=== PATIENT | female | born 1970 | race Caucasian/White ===

== ENCOUNTER 2018-07-30 11:06 | Emergency (ER) | payer OTHER ==
--- NOTE | 2018-07-30 11:21 | ERPHSYRPT ---
- History of Present Illness Time Seen by Provider: 07/30/18 11:20 Historian: patient Exam Limitations: no limitations Physician History: 47 y/o diabetic white female presents with mid abd pain and assoc vomiting since this am. pt had similar episode 3 weeks ago and was managed at [facility]. dx was gastritis. pt had similar episode in distant past as well. pt states both most recent episodes followed ingestion of beans. pt has only had a btl and no other abd surgeries. no diarrhea. pt is on prilosec. Timing/Duration: day(s) (1) Activities at Onset: none Quality: burning, stabbing Abdominal Pain Onset Location: epigastric, generalized abdomen Pain Radiation: no radiation Severity of Pain-Max: moderate Severity of Pain-Current: moderate Modifying Factors: Improves With: vomiting Associated Symptoms: loss of appetite, nausea, vomiting, No back, No diaphoresis , No diarrhea, No fever/chills, No fatigue, No headache, No heartburn, No shortness of breath, No weakness Previous symptoms: same symptoms as today, recently seen Allergies/Adverse Reactions: NKA Allergy (Mild, Verified 07/30/18 11:40) Home Medications: Alprazolam [Xanax] 1 mg PO BIDPRN PRN 08/23/15 [History] Metformin HCl 500 mg [Glucophage 500 MG] 500 mg PO BID 05/18/17 [History] Olanzapine/Fluoxetine HCl [Symbyax 6-50 mg Capsule] 1 each PO HS 05/18/17 [ History] Hx Tetanus, Diphtheria Vaccination/Date Given: No Hx Influenza Vaccination/Date Given: No Hx Pneumococcal Vaccination/Date Given: No - Review of Systems Constitutional: No Symptoms, No Fever Eyes: No Symptoms, No Discharge, No Eye Pain, No Vision Changes Ears, Nose, & Throat: No Symptoms, No Ear Pain, No Nose Pain, No Nose Congestion , No Painful Swallowing Respiratory: No Symptoms, No Cough, No Dyspnea, No Stridor, No Wheezing Cardiac: No Symptoms, No Chest Pain, No Palpitations, No Syncope Abdominal/Gastrointestinal: Abdominal Pain, Nausea, Vomiting, No Diarrhea, No Constipation Genitourinary Symptoms: No Symptoms, No Dysuria, No Frequency, No Hematuria Musculoskeletal: No Symptoms, No Back Pain, No Neck Pain, No Deformity, No Fall , No Injury Skin: No Symptoms Neurological: No Symptoms, No Dizziness, No Headache Psychological: No Symptoms Endocrine: No Symptoms Hematologic/Lymphatic: No Symptoms Immunological/Allergic: No Symptoms All Other Systems: Reviewed and Negative - Past Medical History Pertinent Past Medical History: Yes Neurological History: Migraines ENT History: No Pertinent History Cardiac History: No Pertinent History Respiratory History: Pneumonia Endocrine Medical History: No Pertinent History Musculoskeletal History: No Pertinent History GI Medical History: GERD, Other History: No Pertinent History Psycho-Social History: Anxiety, Bipolar, Depression Female Reproductive Disorders: No Pertinent History Other Medical History: Gastroenteritis , chronic back pain - Past Surgical History Past Surgical History: Yes Neuro Surgical History: No Pertinent History Cardiac: No Pertinent History Respiratory: No Pertinent History Gastrointestinal: No Pertinent History Genitourinary: No Pertinent History Musculoskeletal: No Pertinent History Female Surgical History: Lumpectomy, Tubal Ligation - Social History Smoking Status: Current every day smoker How long have you smoked: 25 Exposure to second hand smoke: Yes Drug Use: marijuana Patient Lives Alone: No - Nursing Vital Signs Nursing Vital Signs: Initial Vital Signs Temperature 97.8 F 07/30/18 11:17 Pulse Rate 96 H 07/30/18 11:17 Respiratory Rate 18 07/30/18 11:17 Blood Pressure 169/95 07/30/18 11:17 O2 Sat by Pulse Oximetry 99 07/30/18 11:17 Pain Scale Pain Intensity 10 - Physical Exam General Appearance: mild distress, alert, anxiety Eye Exam: PERRL/EOMI, eyes nml inspection Ears, Nose, Throat Exam: normal ENT inspection, moist mucous membranes Neck Exam: normal inspection, non-tender, supple, full range of motion Respiratory Exam: normal breath sounds, lungs clear, airway intact, No chest tenderness, No respiratory distress, No accessory muscle use, No rhonchi, No wheezing, No stridor Cardiovascular Exam: regular rate/rhythm, normal heart sounds, normal peripheral pulses Gastrointestinal/Abdomen Exam: soft, normal bowel sounds, tenderness (mild diffuse), guarding, No rebound Pelvic Exam: not done Rectal Exam: not done Back Exam: normal inspection, normal range of motion, No CVA tenderness, No vertebral tenderness Extremity Exam: normal inspection, normal range of motion, pelvis stable Neurologic Exam: alert, oriented x 3, cooperative, 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 Skin Exam: normal color, warm, dry Lymphatic Exam: No adenopathy SpO2 Interpretation: normal Oxygen Delivery: Room Air - Course Nursing assessment & vital signs reviewed: Yes Ordered Tests: Active Orders 24 hr Category Date Time Status Clean Catch Urine Specimen STAT Care 07/30/18 11:41 Active IV Insertion STAT Care 07/30/18 11:41 Active ABDOMEN AND PELVIS W CONTRAST [CT] Stat Exams 07/30/18 11:47 Completed AMYLASE Stat Lab 07/30/18 11:20 Completed CBC W DIFF Stat Lab 07/30/18 11:20 Completed CMP Stat Lab 07/30/18 11:20 Completed LIPASE Stat Lab 07/30/18 11:20 Completed Lactic Acid Stat Lab 07/30/18 11:41 Completed Lactic Acid Stat Lab 07/30/18 14:40 Completed UA W/RFX UR CULTURE Stat Lab 07/30/18 11:20 Completed Medication Summary Generic Name Dose Route Start Last Admin Trade Name Freq PRN Reason Stop Dose Admin Sodium Chloride 1,000 mls @ 999 mls/hr 07/30/18 13:56 07/30/18 14:36 Sodium Chloride 0.9% 1000 Ml IV 07/30/18 14:56 999 mls/hr .Q1H1M STA Administration Discontinued Medications Generic Name Dose Route Start Last Admin Trade Name Freq PRN Reason Stop Dose Admin Hydromorphone HCl 1 mg 07/30/18 11:41 07/30/18 12:08 Hydromorphone 1 Mg/Ml Ampule IV 07/30/18 11:42 1 mg STAT ONE Administration Hydromorphone HCl Confirm 07/30/18 12:03 Hydromorphone 1 Mg/Ml Ampule Administered 07/30/18 12:04 Dose 1 mg .ROUTE .STK-MED ONE Sodium Chloride 1,000 mls @ 999 mls/hr 07/30/18 11:41 07/30/18 12:07 Sodium Chloride 0.9% 1000 Ml IV 07/30/18 12:41 999 mls/hr .Q1H1M STA Administration Sodium Chloride Confirm 07/30/18 12:03 Sodium Chloride 0.9% 1000 Ml Administered 07/30/18 12:04 Dose 1,000 mls @ ud .ROUTE .STK-MED ONE Sodium Chloride Confirm 07/30/18 14:35 Sodium Chloride 0.9% 1000 Ml Administered 07/30/18 14:36 Dose 1,000 mls @ ud .ROUTE .STK-MED ONE Ondansetron HCl 4 mg 07/30/18 11:41 07/30/18 12:08 Zofran 4 Mg/2 Ml Vial IV 07/30/18 11:42 4 mg STAT ONE Administration Ondansetron HCl Confirm 07/30/18 12:03 Zofran 4 Mg/2 Ml Vial Administered 07/30/18 12:04 Dose 4 mg .ROUTE .STK-MED ONE Lab/Rad Data: Laboratory Result Diagrams 07/30/18 11:20 07/30/18 11:20 Laboratory Results 07/30/18 07/30/18 07/30/18 Range/Units 14:40 11:41 11:20 WBC (4.0-10.5) K/mm3 RBC (4.1-5.4) M/mm3 Hgb (12.0-16.0) gm/dl Hct (35-47) % MCV (78-100) fl MCH (26-32) pg MCHC (32-36) g/dl RDW (11.5-14.0) % Plt Count (150-450) K/mm3 MPV (6-9.5) fl Gran % (36.0-66.0) % Eos # (Auto) (0-0.5) Absolute Lymphs (auto) (1.0-4.6) Absolute Monos (auto) (0.0-1.3) Lymphocytes % (24.0-44.0) % Monocytes % (0.0-12.0) % Eosinophils % (0.00-5.0) % Basophils % (0.0-0.4) % Absolute Granulocytes (1.4-6.9) Basophils # (0-0.4) Sodium (137-145) mmol/L Potassium (3.5-5.1) mmol/L Chloride (98-107) mmol/L Carbon Dioxide (22-30) mmol/L Anion Gap (5-15) MEQ/L BUN (7-17) mg/dL Creatinine (0.52-1.04) mg/dL Estimated GFR ML/MIN Glucose (74-106) mg/dL Lactic Acid 1.5 2.2 H (0.4-2.0) Calcium (8.4-10.2) mg/dL Total Bilirubin (0.2-1.3) mg/dL AST (14-36) U/L ALT (0-35) U/L Alkaline Phosphatase (38-126) U/L Serum Total Protein (6.3-8.2) g/dL Albumin (3.5-5.0) g/dL Amylase (30-110) U/L Lipase (23-300) U/L Urine Color YELLOW (YELLOW) Urine Appearance SLIGHTLY CLOUDY (CLEAR) Urine pH 7.0 (5-6) Ur Specific [place] 1.025 (1.005-1.025) Urine Protein 100 (Negative) Urine Ketones SMALL (NEGATIVE) Urine Blood NEGATIVE (0-5) [place]/ul Urine Nitrite NEGATIVE (NEGATIVE) Urine Bilirubin NEGATIVE (NEGATIVE) Urine Urobilinogen NEGATIVE (0-1) mg/dL Ur Leukocyte Esterase NEGATIVE (NEGATIVE) Urine WBC (Auto) 0-2 (0-5) /HPF Urine RBC (Auto) 11-15 (0-2) /HPF U Epithel Cells (Auto) FEW (FEW) /HPF Urine Bacteria (Auto) FEW (NEGATIVE) /HPF Urine Mucus (Auto) SLIGHT (NEGATIVE) /HPF Urine Culture Reflexed NO (NO) Urine Glucose 50 (NEGATIVE) mg/dL 07/30/18 07/30/18 Range/Units 11:20 11:20 WBC 14.8 H (4.0-10.5) K/mm3 RBC 4.91 (4.1-5.4) M/mm3 Hgb 13.9 (12.0-16.0) gm/dl Hct 42.5 (35-47) % MCV 86.6 (78-100) fl MCH 28.3 (26-32) pg MCHC 32.7 (32-36) g/dl RDW 14.4 H (11.5-14.0) % Plt Count 396 (150-450) K/mm3 MPV 11.5 H (6-9.5) fl Gran % 84.4 H (36.0-66.0) % Eos # (Auto) 0.02 (0-0.5) Absolute Lymphs (auto) 1.64 (1.0-4.6) Absolute Monos (auto) 0.63 (0.0-1.3) Lymphocytes % 11.1 L (24.0-44.0) % Monocytes % 4.3 (0.0-12.0) % Eosinophils % 0.1 (0.00-5.0) % Basophils % 0.1 (0.0-0.4) % Absolute Granulocytes 12.49 H (1.4-6.9) Basophils # 0.02 (0-0.4) Sodium 140 (137-145) mmol/L Potassium 3.8 (3.5-5.1) mmol/L Chloride 102 (98-107) mmol/L Carbon Dioxide 24 (22-30) mmol/L Anion Gap 17.9 H (5-15) MEQ/L BUN 18 H (7-17) mg/dL Creatinine 0.56 (0.52-1.04) mg/dL Estimated GFR > 60.0 ML/MIN Glucose 197 H (74-106) mg/dL Lactic Acid (0.4-2.0) Calcium 10.2 (8.4-10.2) mg/dL Total Bilirubin 0.40 (0.2-1.3) mg/dL AST 21 (14-36) U/L ALT 17 (0-35) U/L Alkaline Phosphatase 157 H (38-126) U/L Serum Total Protein 8.7 H (6.3-8.2) g/dL Albumin 5.3 H (3.5-5.0) g/dL Amylase 66 (30-110) U/L Lipase 87 (23-300) U/L Urine Color (YELLOW) Urine Appearance (CLEAR) Urine pH (5-6) Ur Specific [place] (1.005-1.025) Urine Protein (Negative) Urine Ketones (NEGATIVE) Urine Blood (0-5) [place]/ul Urine Nitrite (NEGATIVE) Urine Bilirubin (NEGATIVE) Urine Urobilinogen (0-1) mg/dL Ur Leukocyte Esterase (NEGATIVE) Urine WBC (Auto) (0-5) /HPF Urine RBC (Auto) (0-2) /HPF U Epithel Cells (Auto) (FEW) /HPF Urine Bacteria (Auto) (NEGATIVE) /HPF Urine Mucus (Auto) (NEGATIVE) /HPF Urine Culture Reflexed (NO) Urine Glucose (NEGATIVE) mg/dL - Progress Progress: improved, pain not gone completely, re-examined Progress Note: 07/30/18 14:51 ct scan- no acute process. lactic acid improved now nl Counseled pt/family regarding: lab results, diagnosis, need for follow-up, rad results - Departure Time of Disposition: 14:52 Departure Disposition: Home Clinical Impression: Vomiting, Gastritis Condition: Stable Critical Care Time: No Referrals: ELOY SUGGS [Primary Care Provider] - Additional Instructions: avoid fatty, greasy, spicy foods and foods with beans in them. follow up with your primary doctor for further management and referral to asbestos abatement technician if indicated. Prescriptions: Promethazine HCl 25 mg [Phenergan 25 mg] 25 mg PO Q8H PRN PRN #10 tablet PRN Reason: Nausea/Vomiting Ranitidine HCl [Zantac] 150 mg PO BID #10 tablet
[2018-07-30] MEDS ORDERED: Zofran 4 MG/2 ML VIAL IV ONE ×2 (11:41→14:55)
[2018-07-30] MEDS ORDERED: Hydromorphone 1 mg/ml Ampule IV ONE ×2 (11:41→14:55)
[2018-07-30] MEDS ORDERED: Sodium Chloride 0.9% 1000 ML 1,000 ML IV STA ×2 (11:41→13:56)
[2018-07-30 12:03] LABS: Lactic Acid 2.2 (0.4-2.0)
[2018-07-30] MEDS ORDERED: Sodium Chloride 0.9% 1000 ML 1,000 ML ONE ×2 (12:03→14:35)
[2018-07-30] MEDS ORDERED: Zofran 4 MG/2 ML VIAL ONE ×2 (12:03→14:58)
[2018-07-30] MEDS ORDERED: Hydromorphone 1 mg/ml Ampule ONE ×2 (12:03→14:58)
[2018-07-30 12:11] LABS: BASOPHIL % 0.1 % (0.0-0.4); Basophil (Absolute #) 0.02 (0-0.4); Eosinophil % 0.1 % (0.00-5.0); Eosinophil (Absolute #) 0.02 (0-0.5); Granulocyte Absolute (ANC) 12.49 (1.4-6.9); Granulocytes % 84.4 % (36.0-66.0); Hematocrit 42.5 % (35-47); Hemoglobin 13.9 gm/dl (12.0-16.0); Lymphocyte (Absolute #) 1.64 (1.0-4.6); Lymphocytes % 11.1 % (24.0-44.0); Mean Cell Volume 86.6 fl (78-100); Mean Corpuscular Hemoglobin 28.3 pg (26-32); Mean Corpuscular Hgb Concent. 32.7 g/dl (32-36); Mean Platelet Volume 11.5 fl (6-9.5); Monocyte (Absolute #) 0.63 (0.0-1.3); Monocytes % 4.3 % (0.0-12.0); Platelet Count 396 K/mm3 (150-450); Red Blood Count 4.91 M/mm3 (4.1-5.4); Red Cell Distribution Width 14.4 % (11.5-14.0); White Blood Count 14.8 K/mm3 (4.0-10.5)
[2018-07-30 12:24] LABS: Appearance SLIGHTLY CLOUDY (CLEAR); Bilirubin NEGATIVE (NEGATIVE); Blood NEGATIVE Ery/ul (0-5); Glucose 50 mg/dL (NEGATIVE); Ketones SMALL (NEGATIVE); Leukocyte Esterase NEGATIVE (NEGATIVE); Nitrite NEGATIVE (NEGATIVE); Protein,Urine Dip 100 (Negative); Specific Gravity 1.025 (1.005-1.025); Urobilinogen NEGATIVE mg/dL (0-1)
[2018-07-30 12:29] LABS: ALBUMIN 5.3 g/dL (3.5-5.0); ALKALINE PHOSPHATASE 157 U/L (38-126); AMYLASE 66 U/L (30-110); ANION GAP 17.9 MEQ/L (5-15); BLOOD UREA NITROGEN 18 mg/dL (7-17); CHLORIDE 102 mmol/L (98-107); Calcium 10.2 mg/dL (8.4-10.2); Carbon Dioxide 24 mmol/L (22-30); Creatinine 1 0.56 mg/dL (0.52-1.04); Glucose 197 mg/dL (74-106); LIPASE 87 U/L (23-300); Potassium 3.8 mmol/L (3.5-5.1); SGOT/AST 21 U/L (14-36); SGPT/ALT 17 U/L (0-35); SODIUM 140 mmol/L (137-145); Total Protein 8.7 g/dL (6.3-8.2)
--- NOTE | 2018-07-30 14:37 | XRAY ---
Exam: CT of the abdomen and pelvis with IV contrast from 07/30/2018. CTDI: 21.73 Comparison: CT of the abdomen and pelvis without and with IV contrast from 05/24/2015. Indication: Mid abdominal pain and vomiting since this morning, history of gastritis and diabetes. Technique: Post-IV contrast axial images were obtained through the abdomen and pelvis during automated injection of 80 cc of Isovue-370 contrast material. Reconstructed coronal and sagittal images were created and reviewed. In addition, delayed axial images were obtained through the abdomen and pelvis. Findings: The lung bases appear clear. I believe there is a minimal hiatal hernia. The liver enhances uniformly and reveals no mass or biliary duct distention. The gallbladder is mildly distended and reveals no dense calcifications within it. The spleen is of unremarkable size and reveals multiple calcified granulomas within it. The pancreas is normal without inflammatory changes. The adrenal glands are of normal size and configuration. Both kidneys function. Minimal focal cortical loss and low attenuation are seen at the anterior margin of the lower pole of the left kidney, best seen on axial image #36 of series #3. The low-attenuation density measures about 1 cm in width. I do not definitely see this on the prior CT scan from 2014. Correlate clinically regarding some focal cortical scarring from reflux nephropathy or a history of focal pyelonephritis with cortical scarring. The remainder of the kidneys appears unremarkable. There is no evidence of abdominal aortic aneurysm. Minimal vascular calcification is seen within the right proximal right common iliac artery. No abnormal retroperitoneal lymphadenopathy is seen. There is no free intraperitoneal air or ventral abdominal wall hernia. The bowel gas pattern is nonobstructive. I see no bowel distention or bowel wall thickening. I see no findings of acute appendicitis within the right lower quadrant. The uterus is anteflexed and tilted to the right. No enlarged pelvic lymph nodes are seen. There is no free intraperitoneal fluid. Small bilateral calcified phleboliths are seen. The urinary bladder is partially distended and reveals no significant abnormality. The skeleton reveals no acute fracture or aggressive bone lesion. Minimal vacuum phenomena is seen within the L5-S1 interspace. I also note mild bilateral facet joint arthropathy at L4-L5, moderate facet joint arthropathy with vacuum phenomena at L5-S1 on the right, and minimal/mild facet joint arthropathy at L5-S1 on the left. Impression: 1. I note a 1 cm in diameter focal low-attenuation density with mild cortical loss at the anterior aspect of the lower pole of the right kidney, best seen on axial image #36 of series #3. This appears to be new from 05/24/2015. Consider focal scar formation from reflux nephropathy versus a history of focal pyelonephritis with focal cortical scarring. Correlate clinically in this regard. 2. There appears to be a minimal hiatal hernia. 3. The remainder of the solid organs appears essentially unremarkable. 4. No other acute process is seen within the abdomen or pelvis. No free air or free fluid is seen. The bowel is nonobstructed.
[2018-07-30 16:12] VITALS: PULSE 99; O2SAT 95
[2018-07-30] MEDS ORDERED: Catapres 0.1 MG PO ONE ×2 (16:12→16:42)
[2018-07-30] MEDS ORDERED: Catapres 0.1 MG ONE ×2 (16:12→16:54)
[2018-07-30] MEDS ORDERED: Ativan 2 MG/1 ML VIAL IM ONE (17:00)
[2018-07-30] MEDS ORDERED: Ativan 2 MG/1 ML VIAL ONE (17:05)
[2018-07-30 17:35] LABS: Amphetamine,Urine NEGATIVE (NEGATIVE); Barbiturate,Urine NEGATIVE (NEGATIVE); Benzodiazepine,Urine NEGATIVE (NEGATIVE); Cocaine,Urine NEGATIVE (NEGATIVE); Methadone,Urine NEGATIVE (NEGATIVE); Opiate,Urine NEGATIVE (NEGATIVE); PCP,Urine NEGATIVE (NEGATIVE); THC,Urine POSITIVE (NEGATIVE)
[2018-07-30 18:02] VITALS: BP 178/116
== END 2018-07-30 18:07 | disposition home or self-care (01) ==
LOC: ED 11:06
DX: R11.2 Nausea with vomiting, unspecified (principal); K29.70 Gastritis, unspecified, without bleeding; R10.84 Generalized abdominal pain; R10.13 Epigastric pain; Z79.899 Other long term (current) drug therapy; R03.0 Elevated blood-pressure reading, without diagnosis of hypertension
CPT/HCPCS: 36000; 36415; 74177; 80053; 80307; 81001; 82150; 83605; 83690; 85025; 96360; 96372; 96374; 96375; 96376; 99285; J1170; J2060; J2405; A9270-GY

== ENCOUNTER 2018-08-15 11:15 | Emergency (ER) | payer OTHER ==
[2018-08-15] MEDS ORDERED: Sodium Chloride 0.9% 1000 ML 1,000 ML IV STA (12:00)
[2018-08-15] MEDS ORDERED: Pepcid 20 MG VIAL IV ONE ×2 (12:00→12:09)
[2018-08-15] MEDS ORDERED: Phenergan 25 MG INJ IV ONE (12:00)
[2018-08-15] MEDS ORDERED: Hydromorphone 1 mg/ml Ampule IV ONE (12:00)
--- NOTE | 2018-08-15 12:06 | ERPHSYRPT ---
- History of Present Illness Time Seen by Provider: 08/15/18 11:59 Historian: patient, family Exam Limitations: no limitations Patient Subjective Stated Complaint: pt here for vomiting and abd pain that started today but has been off for 2 months now. was seen by fatimah this morning and was given phenergan Triage Nursing Assessment: pt alert, resp easy, skin w/d/p. abd soft, pt moaning and restless, vomited small amt. Physician History: The patient is a 47-year-old female with her complaining of intermittent vomiting and abdominal pain for about 2 months. She had a similar episode several years ago that resolved. She saw her local primary care physician, Dr. Bruce, this morning and was given a Phenergan injection for vomiting. She states that her vomiting has increased and her abdominal pain has increased today. She has loose stools. She tells me that Dr. Bruce wants her to have an upper endoscopy for the next test. She's had a recent abdominal CT scan within the last 2 years and a HIDA scan about 3 weeks ago. She denies fever or chills. Her past medical history is significant for gastritis, chronic abdominal pain, diabetes, and tubal ligation. Timing/Duration: week(s) (several weeks), intermittent Activities at Onset: none Quality: aching, cramping Abdominal Pain Onset Location: epigastric Pain Radiation: no radiation Severity of Pain-Max: moderate Severity of Pain-Current: moderate Modifying Factors: Improves With: nothing Associated Symptoms: diarrhea, nausea, vomiting Previous symptoms: same symptoms as today, recently treated (today) Allergies/Adverse Reactions: NKA Allergy (Mild, Verified 08/15/18 11:29) Home Medications: Alprazolam [Xanax] 1 mg PO BIDPRN PRN 08/23/15 [History] Metformin HCl 500 mg [Glucophage 500 MG] 500 mg PO BID 05/18/17 [History] Olanzapine/Fluoxetine HCl [Symbyax 6-50 mg Capsule] 1 each PO HS 05/18/17 [ History] Dulaglutide [Trulicity] 0.75 ml DAILY 08/15/18 [History] Gabapentin 600 mg TID 08/15/18 [History] OLANZapine [Olanzapine] 7.5 mg DAILY 08/15/18 [History] Hx Tetanus, Diphtheria Vaccination/Date Given: No Hx Influenza Vaccination/Date Given: Yes Hx Pneumococcal Vaccination/Date Given: No Immunizations Up to Date: Yes - Review of Systems Constitutional: No Fever, No Chills Eyes: No Symptoms Ears, Nose, & Throat: No Symptoms Respiratory: No Cough, No Dyspnea Cardiac: No Chest Pain, No Edema, No Syncope Abdominal/Gastrointestinal: Abdominal Pain, Nausea, Vomiting, Diarrhea Genitourinary Symptoms: No Dysuria Musculoskeletal: No Back Pain, No Neck Pain Skin: No Rash Neurological: No Dizziness, No Focal Weakness, No Sensory Changes Psychological: No Symptoms Endocrine: No Symptoms Hematologic/Lymphatic: No Symptoms Immunological/Allergic: No Symptoms All Other Systems: Reviewed and Negative - Past Medical History Pertinent Past Medical History: Yes Neurological History: Migraines ENT History: No Pertinent History Cardiac History: No Pertinent History Respiratory History: Pneumonia Endocrine Medical History: No Pertinent History Musculoskeletal History: No Pertinent History GI Medical History: GERD, Other History: No Pertinent History Psycho-Social History: Anxiety, Bipolar, Depression Female Reproductive Disorders: No Pertinent History Other Medical History: Gastroenteritis , chronic back pain - Past Surgical History Past Surgical History: Yes Neuro Surgical History: No Pertinent History Cardiac: No Pertinent History Respiratory: No Pertinent History Gastrointestinal: No Pertinent History Genitourinary: No Pertinent History Musculoskeletal: No Pertinent History Female Surgical History: Lumpectomy, Tubal Ligation - Social History Smoking Status: Current every day smoker How long have you smoked: 25 Exposure to second hand smoke: Yes Drug Use: marijuana Patient Lives Alone: No - Female History Hx Last Menstrual Period: month ago Hx Now: No - Nursing Vital Signs Nursing Vital Signs: Initial Vital Signs Temperature 97.8 F 08/15/18 11:19 Pulse Rate 82 08/15/18 11:19 Respiratory Rate 18 08/15/18 11:19 Blood Pressure 183/117 08/15/18 11:19 O2 Sat by Pulse Oximetry 98 08/15/18 11:19 Pain Scale Pain Intensity 10 - Physical Exam General Appearance: moderate distress Eye Exam: PERRL/EOMI, eyes nml inspection Ears, Nose, Throat Exam: normal ENT inspection, pharynx normal, moist mucous membranes Neck Exam: normal inspection, non-tender, supple, full range of motion Respiratory Exam: normal breath sounds, lungs clear, No respiratory distress Cardiovascular Exam: regular rate/rhythm, normal heart sounds Gastrointestinal/Abdomen Exam: tenderness (epigastric) Pelvic Exam: not done Rectal Exam: not done Back Exam: normal inspection, normal range of motion, No CVA tenderness, No vertebral tenderness Extremity Exam: normal inspection, normal range of motion, pelvis stable Neurologic Exam: alert, oriented x 3, cooperative, normal mood/affect, nml cerebellar function, sensation nml, No motor deficits Skin Exam: normal color, warm, dry SpO2 Interpretation: normal SpO2: 98 Oxygen Delivery: Room Air Ordered Tests: Active Orders 24 hr Category Date Time Status Clean Catch Urine Specimen STAT Care 08/15/18 12:00 Active IV Insertion STAT Care 08/15/18 12:00 Active AMYLASE Stat Lab 08/15/18 11:50 Completed CBC W DIFF Stat Lab 08/15/18 11:50 Completed CMP Stat Lab 08/15/18 11:50 Completed CULTURE,URINE Stat Lab 08/15/18 11:50 Received HCG QUALITATIVE,SERUM Stat Lab 08/15/18 11:50 Completed LIPASE Stat Lab 08/15/18 11:50 Completed Lactic Acid Stat Lab 08/15/18 12:00 Results TROPONIN Q3H Lab 08/15/18 11:50 Completed UA W/RFX UR CULTURE Stat Lab 08/15/18 11:50 Completed Urine Triage Profile Stat Lab 08/15/18 11:50 Completed Medication Summary Discontinued Medications Generic Name Dose Route Start Last Admin Trade Name Freq PRN Reason Stop Dose Admin Famotidine 20 mg 08/15/18 12:00 08/15/18 12:16 Pepcid 20 Mg Vial IV 08/15/18 12:01 20 mg STAT ONE Administration Famotidine Confirm 08/15/18 12:09 Pepcid 20 Mg Vial Administered 08/15/18 12:10 Dose 20 mg IV .STK-MED ONE Hydromorphone HCl 1 mg 08/15/18 12:00 08/15/18 12:16 Hydromorphone 1 Mg/Ml Ampule IV 08/15/18 12:01 1 mg STAT ONE Administration Hydromorphone HCl Confirm 08/15/18 12:10 Hydromorphone 1 Mg/Ml Ampule Administered 08/15/18 12:11 Dose 1 mg .ROUTE .STK-MED ONE Sodium Chloride 1,000 mls @ 999 mls/hr 08/15/18 12:00 08/15/18 12:16 Sodium Chloride 0.9% 1000 Ml IV 08/15/18 13:00 999 mls/hr .Q1H1M STA Administration Sodium Chloride Confirm 08/15/18 12:10 Sodium Chloride 0.9% 1000 Ml Administered 08/15/18 12:11 Dose 1,000 mls @ ud .ROUTE .STK-MED ONE Metoclopramide HCl 10 mg 08/15/18 13:44 08/15/18 13:55 Reglan 10 Mg/2 Ml IV 08/15/18 13:45 10 mg STAT ONE Administration Metoclopramide HCl Confirm 08/15/18 13:54 Reglan 10 Mg/2 Ml Administered 08/15/18 13:55 Dose 10 mg .ROUTE .STK-MED ONE Promethazine HCl 25 mg 08/15/18 12:00 08/15/18 12:16 Phenergan 25 Mg Inj IV 08/15/18 12:01 25 mg STAT ONE Administration Promethazine HCl Confirm 08/15/18 12:09 Phenergan 25 Mg Inj Administered 08/15/18 12:10 Dose 25 mg .ROUTE .STK-MED ONE Lab/Rad Data: Laboratory Result Diagrams 08/15/18 11:50 08/15/18 11:50 Laboratory Results 08/15/18 08/15/18 08/15/18 Range/Units 12:00 11:50 11:50 WBC (4.0-10.5) K/mm3 RBC (4.1-5.4) M/mm3 Hgb (12.0-16.0) gm/dl Hct (35-47) % MCV (78-100) fl MCH (26-32) pg MCHC (32-36) g/dl RDW (11.5-14.0) % Plt Count (150-450) K/mm3 MPV (6-9.5) fl Gran % (36.0-66.0) % Eos # (Auto) (0-0.5) Absolute Lymphs (auto) (1.0-4.6) Absolute Monos (auto) (0.0-1.3) Lymphocytes % (24.0-44.0) % Monocytes % (0.0-12.0) % Eosinophils % (0.00-5.0) % Basophils % (0.0-0.4) % Absolute Granulocytes (1.4-6.9) Basophils # (0-0.4) Sodium (137-145) mmol/L Potassium (3.5-5.1) mmol/L Chloride (98-107) mmol/L Carbon Dioxide (22-30) mmol/L Anion Gap (5-15) MEQ/L BUN (7-17) mg/dL Creatinine (0.52-1.04) mg/dL Estimated GFR ML/MIN Glucose (74-106) mg/dL Lactic Acid 2.4 H (0.4-2.0) Calcium (8.4-10.2) mg/dL Total Bilirubin (0.2-1.3) mg/dL AST (14-36) U/L ALT (0-35) U/L Alkaline Phosphatase (38-126) U/L Troponin I (0.000-0.034) ng/mL Serum Total Protein (6.3-8.2) g/dL Albumin (3.5-5.0) g/dL Amylase (30-110) U/L Lipase (23-300) U/L Serum , Qual (Negative) Urine Color YELLOW (YELLOW) Urine Appearance SLIGHTLY CLOUDY (CLEAR) Urine pH 6.0 (5-6) Ur Specific [place] 1.019 (1.005-1.025) Urine Protein 30 (Negative) Urine Ketones NEGATIVE (NEGATIVE) Urine Blood SMALL (0-5) [place]/ul Urine Nitrite NEGATIVE (NEGATIVE) Urine Bilirubin NEGATIVE (NEGATIVE) Urine Urobilinogen NEGATIVE (0-1) mg/dL Ur Leukocyte Esterase NEGATIVE (NEGATIVE) Urine WBC (Auto) 3-5 (0-5) /HPF Urine RBC (Auto) 3-5 (0-2) /HPF U Epithel Cells (Auto) RARE (FEW) /HPF Urine Bacteria (Auto) RARE (NEGATIVE) /HPF Urine Mucus (Auto) SLIGHT (NEGATIVE) /HPF Urine Culture Reflexed YES (NO) Urine Glucose NEGATIVE (NEGATIVE) mg/dL Urine Opiates Level NEGATIVE (NEGATIVE) Ur Methadone NEGATIVE (NEGATIVE) Urine Barbiturates NEGATIVE (NEGATIVE) Ur Phencyclidine (PCP) NEGATIVE (NEGATIVE) Urine Amphetamine NEGATIVE (NEGATIVE) U Benzodiazepine Level NEGATIVE (NEGATIVE) Urine Cocaine NEGATIVE (NEGATIVE) Urine Marijuana (THC) POSITIVE (NEGATIVE) 08/15/18 08/15/18 08/15/18 Range/Units 11:50 11:50 11:50 WBC 13.3 H (4.0-10.5) K/mm3 RBC 4.66 (4.1-5.4) M/mm3 Hgb 13.1 (12.0-16.0) gm/dl Hct 40.6 (35-47) % MCV 87.1 (78-100) fl MCH 28.1 (26-32) pg MCHC 32.3 (32-36) g/dl RDW 14.4 H (11.5-14.0) % Plt Count 352 (150-450) K/mm3 MPV 11.5 H (6-9.5) fl Gran % 88.2 H (36.0-66.0) % Eos # (Auto) 0.02 (0-0.5) Absolute Lymphs (auto) 1.13 (1.0-4.6) Absolute Monos (auto) 0.38 (0.0-1.3) Lymphocytes % 8.5 L (24.0-44.0) % Monocytes % 2.9 (0.0-12.0) % Eosinophils % 0.2 (0.00-5.0) % Basophils % 0.2 (0.0-0.4) % Absolute Granulocytes 11.69 H (1.4-6.9) Basophils # 0.03 (0-0.4) Sodium 141 (137-145) mmol/L Potassium 4.3 (3.5-5.1) mmol/L Chloride 105 (98-107) mmol/L Carbon Dioxide 24 (22-30) mmol/L Anion Gap 16.8 H (5-15) MEQ/L BUN 13 (7-17) mg/dL Creatinine 0.63 (0.52-1.04) mg/dL Estimated GFR > 60.0 ML/MIN Glucose 200 H (74-106) mg/dL Lactic Acid (0.4-2.0) Calcium 10.0 (8.4-10.2) mg/dL Total Bilirubin 0.20 (0.2-1.3) mg/dL AST 26 (14-36) U/L ALT 22 (0-35) U/L Alkaline Phosphatase 125 (38-126) U/L Troponin I (0.000-0.034) ng/mL Serum Total Protein 8.0 (6.3-8.2) g/dL Albumin 4.9 (3.5-5.0) g/dL Amylase 55 (30-110) U/L Lipase 71 (23-300) U/L Serum , Qual NEGATIVE (Negative) Urine Color (YELLOW) Urine Appearance (CLEAR) Urine pH (5-6) Ur Specific [place] (1.005-1.025) Urine Protein (Negative) Urine Ketones (NEGATIVE) Urine Blood (0-5) [place]/ul Urine Nitrite (NEGATIVE) Urine Bilirubin (NEGATIVE) Urine Urobilinogen (0-1) mg/dL Ur Leukocyte Esterase (NEGATIVE) Urine WBC (Auto) (0-5) /HPF Urine RBC (Auto) (0-2) /HPF U Epithel Cells (Auto) (FEW) /HPF Urine Bacteria (Auto) (NEGATIVE) /HPF Urine Mucus (Auto) (NEGATIVE) /HPF Urine Culture Reflexed (NO) Urine Glucose (NEGATIVE) mg/dL Urine Opiates Level (NEGATIVE) Ur Methadone (NEGATIVE) Urine Barbiturates (NEGATIVE) Ur Phencyclidine (PCP) (NEGATIVE) Urine Amphetamine (NEGATIVE) U Benzodiazepine Level (NEGATIVE) Urine Cocaine (NEGATIVE) Urine Marijuana (THC) (NEGATIVE) 08/15/18 Range/Units 11:50 WBC (4.0-10.5) K/mm3 RBC (4.1-5.4) M/mm3 Hgb (12.0-16.0) gm/dl Hct (35-47) % MCV (78-100) fl MCH (26-32) pg MCHC (32-36) g/dl RDW (11.5-14.0) % Plt Count (150-450) K/mm3 MPV (6-9.5) fl Gran % (36.0-66.0) % Eos # (Auto) (0-0.5) Absolute Lymphs (auto) (1.0-4.6) Absolute Monos (auto) (0.0-1.3) Lymphocytes % (24.0-44.0) % Monocytes % (0.0-12.0) % Eosinophils % (0.00-5.0) % Basophils % (0.0-0.4) % Absolute Granulocytes (1.4-6.9) Basophils # (0-0.4) Sodium (137-145) mmol/L Potassium (3.5-5.1) mmol/L Chloride (98-107) mmol/L Carbon Dioxide (22-30) mmol/L Anion Gap (5-15) MEQ/L BUN (7-17) mg/dL Creatinine (0.52-1.04) mg/dL Estimated GFR ML/MIN Glucose (74-106) mg/dL Lactic Acid (0.4-2.0) Calcium (8.4-10.2) mg/dL Total Bilirubin (0.2-1.3) mg/dL AST (14-36) U/L ALT (0-35) U/L Alkaline Phosphatase (38-126) U/L Troponin I < 0.012 (0.000-0.034) ng/mL Serum Total Protein (6.3-8.2) g/dL Albumin (3.5-5.0) g/dL Amylase (30-110) U/L Lipase (23-300) U/L Serum , Qual (Negative) Urine Color (YELLOW) Urine Appearance (CLEAR) Urine pH (5-6) Ur Specific [place] (1.005-1.025) Urine Protein (Negative) Urine Ketones (NEGATIVE) Urine Blood (0-5) [place]/ul Urine Nitrite (NEGATIVE) Urine Bilirubin (NEGATIVE) Urine Urobilinogen (0-1) mg/dL Ur Leukocyte Esterase (NEGATIVE) Urine WBC (Auto) (0-5) /HPF Urine RBC (Auto) (0-2) /HPF U Epithel Cells (Auto) (FEW) /HPF Urine Bacteria (Auto) (NEGATIVE) /HPF Urine Mucus (Auto) (NEGATIVE) /HPF Urine Culture Reflexed (NO) Urine Glucose (NEGATIVE) mg/dL Urine Opiates Level (NEGATIVE) Ur Methadone (NEGATIVE) Urine Barbiturates (NEGATIVE) Ur Phencyclidine (PCP) (NEGATIVE) Urine Amphetamine (NEGATIVE) U Benzodiazepine Level (NEGATIVE) Urine Cocaine (NEGATIVE) Urine Marijuana (THC) (NEGATIVE) - Progress Progress: improved Discussed with : Fatimah Counseled pt/family regarding: lab results, diagnosis, need for follow-up - Departure Time of Disposition: 13:44 Departure Disposition: Home Clinical Impression: Vomiting, Abdominal pain Condition: Stable Critical Care Time: No Referrals: ELOY BRUCE [Primary Care Provider] - Additional Instructions: You have nausea, vomiting, and abdominal pain. You were given Phenergan 25 mg, Pepcid 20 mg, Dilaudid 1 mg, Reglan 10 mg, and fluids by IV in the ER. I spoke at length with Dr. Bruce about your situation. Dr. Bruce will do an upper GI scope on you on Sunday morning. Do not eat or drink anything after midnight on Sunday night before the scope. Over the weekend you can take Phenergan 25 mg rectally every 8 hours as needed for nausea and vomiting. You may also take Zofran 4 mg every 6 hours as needed. Continue with your other medicines. You may also take Reglan 10 mg every 8 hours as needed. Begin with a liquid diet and advance as tolerated. You may also take Maalox 30 mL as needed. Take Tylenol 1000 mg every 6 to 8 hours as needed. Prescriptions: Metoclopramide HCl [Reglan] 10 mg PO Q8H PRN PRN #12 tablet PRN Reason: Nausea/Vomiting Promethazine HCl [Phenergan] 25 mg RC Q8H PRN PRN #12 supp.rect PRN Reason: Nausea/Vomiting
[2018-08-15] MEDS ORDERED: Phenergan 25 MG INJ ONE (12:09)
[2018-08-15] MEDS ORDERED: Sodium Chloride 0.9% 1000 ML 1,000 ML ONE (12:10)
[2018-08-15] MEDS ORDERED: Hydromorphone 1 mg/ml Ampule ONE (12:10)
[2018-08-15 12:15] LABS: BASOPHIL % 0.2 % (0.0-0.4); Basophil (Absolute #) 0.03 (0-0.4); Eosinophil % 0.2 % (0.00-5.0); Eosinophil (Absolute #) 0.02 (0-0.5); Granulocyte Absolute (ANC) 11.69 (1.4-6.9); Granulocytes % 88.2 % (36.0-66.0); Hematocrit 40.6 % (35-47); Hemoglobin 13.1 gm/dl (12.0-16.0); Lymphocyte (Absolute #) 1.13 (1.0-4.6); Lymphocytes % 8.5 % (24.0-44.0); Mean Cell Volume 87.1 fl (78-100); Mean Corpuscular Hemoglobin 28.1 pg (26-32); Mean Corpuscular Hgb Concent. 32.3 g/dl (32-36); Mean Platelet Volume 11.5 fl (6-9.5); Monocyte (Absolute #) 0.38 (0.0-1.3); Monocytes % 2.9 % (0.0-12.0); Platelet Count 352 K/mm3 (150-450); Red Blood Count 4.66 M/mm3 (4.1-5.4); Red Cell Distribution Width 14.4 % (11.5-14.0); White Blood Count 13.3 K/mm3 (4.0-10.5)
[2018-08-15 12:26] LABS: Lactic Acid 2.4 (0.4-2.0)
[2018-08-15 12:33] LABS: Appearance SLIGHTLY CLOUDY (CLEAR); Bilirubin NEGATIVE (NEGATIVE); Blood SMALL Ery/ul (0-5); Glucose NEGATIVE (NEGATIVE); Ketones NEGATIVE (NEGATIVE); Leukocyte Esterase NEGATIVE (NEGATIVE); Nitrite NEGATIVE (NEGATIVE); Protein,Urine Dip 30 (Negative); Specific Gravity 1.019 (1.005-1.025); Urobilinogen NEGATIVE mg/dL (0-1)
[2018-08-15 12:34] LABS: Amphetamine,Urine NEGATIVE (NEGATIVE); Barbiturate,Urine NEGATIVE (NEGATIVE); Benzodiazepine,Urine NEGATIVE (NEGATIVE); Cocaine,Urine NEGATIVE (NEGATIVE); Methadone,Urine NEGATIVE (NEGATIVE); Opiate,Urine NEGATIVE (NEGATIVE); PCP,Urine NEGATIVE (NEGATIVE); THC,Urine POSITIVE (NEGATIVE)
[2018-08-15 12:40] LABS: ALBUMIN 4.9 g/dL (3.5-5.0); ALKALINE PHOSPHATASE 125 U/L (38-126); AMYLASE 55 U/L (30-110); ANION GAP 16.8 MEQ/L (5-15); BLOOD UREA NITROGEN 13 mg/dL (7-17); CHLORIDE 105 mmol/L (98-107); Carbon Dioxide 24 mmol/L (22-30); Creatinine 1 0.63 mg/dL (0.52-1.04); Glucose 200 mg/dL (74-106); LIPASE 71 U/L (23-300); Potassium 4.3 mmol/L (3.5-5.1); SGOT/AST 26 U/L (14-36); SGPT/ALT 22 U/L (0-35); SODIUM 141 mmol/L (137-145)
[2018-08-15] MEDS ORDERED: Reglan 10 MG/2 ML IV ONE (13:44)
[2018-08-15 13:50] VITALS: O2SAT 98
[2018-08-15] MEDS ORDERED: Reglan 10 MG/2 ML ONE (13:54)
[2018-08-15 14:33] VITALS: BP 178/98; PULSE 78
== END 2018-08-15 14:35 | disposition home or self-care (01) ==
LOC: ED 11:15
DX: R11.2 Nausea with vomiting, unspecified (principal); R10.13 Epigastric pain; R19.7 Diarrhea, unspecified; Z79.899 Other long term (current) drug therapy
CPT/HCPCS: 36000; 36415; 80053; 80307; 81001; 81025; 82150; 83605; 83690; 84484; 85025; 87086; 96360; 96374; 96375; 99284; J1170; J2550

== ENCOUNTER 2018-08-16 08:30 | Emergency (ER) | payer OTHER ==
--- NOTE | 2018-08-16 08:53 | ERPHSYRPT ---
- History of Present Illness Time Seen by Provider: 08/16/18 08:37 Historian: patient Exam Limitations: no limitations Physician History: 47 y/o white female, well known to our ED, presents with chronic recurrent abd pain, n/v over several years. pt has been evaluated and managed by several doctors. pt seen yesterday morning at pcp appt then seen by our ED yesterday as well. pt has an upper endoscopy scheduled SunAug 19. pt chronically has abd pain and this episode has worsened over a week. Timing/Duration: day(s) (worsening over several day.) Activities at Onset: none Quality: cramping, pressure, sharpness Abdominal Pain Onset Location: generalized abdomen Pain Radiation: no radiation Severity of Pain-Max: moderate Severity of Pain-Current: moderate Modifying Factors: Improves With: nothing (nothing helping) Associated Symptoms: loss of appetite, nausea, vomiting Previous symptoms: no prior history Allergies/Adverse Reactions: NKA Allergy (Mild, Verified 08/16/18 10:51) Home Medications: Alprazolam [Xanax] 1 mg PO BIDPRN PRN 08/23/15 [History] Metformin HCl 500 mg [Glucophage 500 MG] 500 mg PO BID 05/18/17 [History] Olanzapine/Fluoxetine HCl [Symbyax 6-50 mg Capsule] 1 each PO HS 05/18/17 [ History] Dulaglutide [Trulicity] 0.75 ml DAILY 08/15/18 [History] Gabapentin 600 mg TID 08/15/18 [History] OLANZapine [Olanzapine] 7.5 mg DAILY 08/15/18 [History] Hx Tetanus, Diphtheria Vaccination/Date Given: No Hx Influenza Vaccination/Date Given: Yes Hx Pneumococcal Vaccination/Date Given: No - Review of Systems Constitutional: No Symptoms Eyes: No Symptoms Ears, Nose, & Throat: No Symptoms Respiratory: No Symptoms Cardiac: No Symptoms Abdominal/Gastrointestinal: Abdominal Pain, Nausea, Vomiting Genitourinary Symptoms: No Symptoms, No Dysuria, No Frequency, No Hematuria Musculoskeletal: No Symptoms, No Arthralgias, No Back Pain, No Injury Skin: No Symptoms Neurological: No Symptoms Psychological: No Symptoms Endocrine: No Symptoms Hematologic/Lymphatic: No Symptoms Immunological/Allergic: No Symptoms All Other Systems: Reviewed and Negative - Past Medical History Pertinent Past Medical History: Yes Neurological History: Migraines ENT History: No Pertinent History Cardiac History: No Pertinent History Respiratory History: Pneumonia Endocrine Medical History: No Pertinent History Musculoskeletal History: No Pertinent History GI Medical History: GERD, Other History: No Pertinent History Psycho-Social History: Anxiety, Bipolar, Depression Female Reproductive Disorders: No Pertinent History Other Medical History: Gastroenteritis , chronic back pain - Past Surgical History Past Surgical History: Yes Neuro Surgical History: No Pertinent History Cardiac: No Pertinent History Respiratory: No Pertinent History Gastrointestinal: No Pertinent History Genitourinary: No Pertinent History Musculoskeletal: No Pertinent History Female Surgical History: Lumpectomy, Tubal Ligation - Social History Smoking Status: Current every day smoker How long have you smoked: 25 Exposure to second hand smoke: Yes Drug Use: marijuana Patient Lives Alone: No - Nursing Vital Signs Nursing Vital Signs: Initial Vital Signs Temperature 97.1 F 08/16/18 08:50 Pulse Rate 107 H 08/16/18 08:50 Respiratory Rate 22 08/16/18 08:50 Blood Pressure 165/117 08/16/18 08:50 O2 Sat by Pulse Oximetry 98 08/16/18 08:50 Pain Scale Pain Intensity 5 - Physical Exam General Appearance: mild distress, alert, anxiety Eye Exam: PERRL/EOMI, eyes nml inspection Ears, Nose, Throat Exam: normal ENT inspection, moist mucous membranes Neck Exam: normal inspection, non-tender, supple, full range of motion Respiratory Exam: normal breath sounds, lungs clear, airway intact, No chest tenderness, No respiratory distress, No accessory muscle use, No rhonchi, No wheezing, No stridor Cardiovascular Exam: regular rate/rhythm, normal heart sounds, normal peripheral pulses Gastrointestinal/Abdomen Exam: soft, normal bowel sounds, tenderness, No distention, No guarding, No rebound Pelvic Exam: not done Rectal Exam: not done Back Exam: normal inspection, normal range of motion, No CVA tenderness, No vertebral tenderness Extremity Exam: normal inspection, normal range of motion, pelvis stable Neurologic Exam: alert, oriented x 3, cooperative, cadd technician II-XII nml as tested Skin Exam: normal color, warm, dry Lymphatic Exam: No adenopathy SpO2 Interpretation: normal - Course Nursing assessment & vital signs reviewed: Yes Ordered Tests: Active Orders 24 hr Category Date Time Status IV Insertion STAT Care 08/16/18 08:56 Active AMYLASE Stat Lab 08/16/18 09:08 Completed CBC W DIFF Stat Lab 08/16/18 09:08 Completed CMP Stat Lab 08/16/18 09:08 Completed CULTURE,URINE Stat Lab 08/16/18 09:57 Received LIPASE Stat Lab 08/16/18 09:08 Completed Lactic Acid Stat Lab 08/16/18 09:08 Completed Lactic Acid Stat Lab 08/16/18 11:12 Ordered Manual Differential NC Stat Lab 08/16/18 09:08 Completed UA W/RFX UR CULTURE Stat Lab 08/16/18 09:57 Completed Medication Summary Generic Name Dose Route Start Last Admin Trade Name Freq PRN Reason Stop Dose Admin Sodium Chloride 1,000 mls @ 999 mls/hr 08/16/18 11:16 08/16/18 11:19 Sodium Chloride 0.9% 1000 Ml IV 08/16/18 12:16 999 mls/hr .[id number] STA Administration Discontinued Medications Generic Name Dose Route Start Last Admin Trade Name Freq PRN Reason Stop Dose Admin Al Hydrox/Mg Hydrox/Simethicone Confirm 08/16/18 10:46 Maalox Es 30 Ml Unit Dose Administered 08/16/18 10:47 Dose 30 ml .ROUTE .STK-MED ONE Hydromorphone HCl 1 mg 08/16/18 08:56 08/16/18 09:35 Hydromorphone 1 Mg/Ml Ampule IV 08/16/18 08:57 1 mg STAT ONE Administration Hydromorphone HCl Confirm 08/16/18 09:31 Hydromorphone 1 Mg/Ml Ampule Administered 08/16/18 09:32 Dose 1 mg .ROUTE .STK-MED ONE Sodium Chloride 1,000 mls @ 999 mls/hr 08/16/18 08:56 08/16/18 09:35 Sodium Chloride 0.9% 1000 Ml IV 08/16/18 09:56 999 mls/hr .Q1H1M STA Administration Sodium Chloride Confirm 08/16/18 09:32 Sodium Chloride 0.9% 1000 Ml Administered 08/16/18 09:33 Dose 1,000 mls @ ud .ROUTE .STK-MED ONE Sodium Chloride Confirm 08/16/18 11:17 Sodium Chloride 0.9% 1000 Ml Administered 08/16/18 11:18 Dose 1,000 mls @ ud .ROUTE .STK-MED ONE Lidocaine HCl Confirm 08/16/18 10:46 Xylocaine Hcl Viscous * Administered 08/16/18 10:47 Dose 15 ml .ROUTE .STK-MED ONE Magnesium Hydroxide 45 ml 08/16/18 10:37 08/16/18 10:52 Gi Cocktail 45 Ml (Maalox/Lidocaine) PO 08/16/18 10:38 45 ml STAT ONE Administration Ondansetron HCl 4 mg 08/16/18 08:56 08/16/18 09:36 Zofran 4 Mg/2 Ml Vial IV 08/16/18 08:57 4 mg STAT ONE Administration Ondansetron HCl Confirm 08/16/18 09:31 Zofran 4 Mg/2 Ml Vial Administered 08/16/18 09:32 Dose 4 mg .ROUTE .STK-MED ONE Promethazine HCl 12.5 mg 08/16/18 11:42 Phenergan 25 Mg Inj IV 08/16/18 11:43 STAT ONE Lab/Rad Data: Laboratory Result Diagrams 08/16/18 09:08 08/16/18 09:08 Laboratory Results 08/16/18 08/16/18 08/16/18 Range/Units 09:57 09:08 09:08 WBC (4.0-10.5) K/mm3 RBC (4.1-5.4) M/mm3 Hgb (12.0-16.0) gm/dl Hct (35-47) % MCV (78-100) fl MCH (26-32) pg MCHC (32-36) g/dl RDW (11.5-14.0) % Plt Count (150-450) K/mm3 MPV (6-9.5) fl Absolute Granulocytes (1.4-6.9) Segmented Neutrophils (36.0-66.0) % Band Neutrophils (0.0-2.0) % Lymphocytes (Manual) (24-44) % Monocytes (Manual) (0.0-12.0) % Platelet Estimate (NORMAL) RBC Morphology Sodium 137 (137-145) mmol/L Potassium 3.7 (3.5-5.1) mmol/L Chloride 98 (98-107) mmol/L Carbon Dioxide 23 (22-30) mmol/L Anion Gap 19.5 H (5-15) MEQ/L BUN 12 (7-17) mg/dL Creatinine 0.55 (0.52-1.04) mg/dL Estimated GFR > 60.0 ML/MIN Glucose 222 H (74-106) mg/dL Lactic Acid 1.9 (0.4-2.0) Calcium 10.3 H (8.4-10.2) mg/dL Total Bilirubin 0.60 (0.2-1.3) mg/dL AST 23 (14-36) U/L ALT 22 (0-35) U/L Alkaline Phosphatase 135 H (38-126) U/L Serum Total Protein 8.9 H (6.3-8.2) g/dL Albumin 5.2 H (3.5-5.0) g/dL Amylase 56 (30-110) U/L Lipase 56 (23-300) U/L Urine Color YELLOW (YELLOW) Urine Appearance SLIGHTLY CLOUDY (CLEAR) Urine pH 6.0 (5-6) Ur Specific [place] 1.024 (1.005-1.025) Urine Protein >=500 (Negative) Urine Ketones SMALL (NEGATIVE) Urine Blood MODERATE (0-5) Junito/ul Urine Nitrite NEGATIVE (NEGATIVE) Urine Bilirubin NEGATIVE (NEGATIVE) Urine Urobilinogen NEGATIVE (0-1) mg/dL Ur Leukocyte Esterase NEGATIVE (NEGATIVE) Urine WBC (Auto) 0-2 (0-5) /HPF Urine RBC (Auto) 11-15 (0-2) /HPF Amorphous Crystals FEW (NEGATIVE) /HPF Urine Mucus (Auto) SLIGHT (NEGATIVE) /HPF Urine Culture Reflexed YES (NO) Urine Glucose 50 (NEGATIVE) mg/dL 08/16/18 Range/Units 09:08 WBC 17.2 H (4.0-10.5) K/mm3 RBC 4.97 (4.1-5.4) M/mm3 Hgb 13.7 (12.0-16.0) gm/dl Hct 41.8 (35-47) % MCV 84.1 (78-100) fl MCH 27.6 (26-32) pg MCHC 32.8 (32-36) g/dl RDW 14.6 H (11.5-14.0) % Plt Count 429 (150-450) K/mm3 MPV 10.9 H (6-9.5) fl Absolute Granulocytes 15.5 H (1.4-6.9) Segmented Neutrophils 89 H (36.0-66.0) % Band Neutrophils 1 (0.0-2.0) % Lymphocytes (Manual) 6 L (24-44) % Monocytes (Manual) 4 (0.0-12.0) % Platelet Estimate NORMAL (NORMAL) RBC Morphology NORMAL Sodium (137-145) mmol/L Potassium (3.5-5.1) mmol/L Chloride (98-107) mmol/L Carbon Dioxide (22-30) mmol/L Anion Gap (5-15) MEQ/L BUN (7-17) mg/dL Creatinine (0.52-1.04) mg/dL Estimated GFR ML/MIN Glucose (74-106) mg/dL Lactic Acid (0.4-2.0) Calcium (8.4-10.2) mg/dL Total Bilirubin (0.2-1.3) mg/dL AST (14-36) U/L ALT (0-35) U/L Alkaline Phosphatase (38-126) U/L Serum Total Protein (6.3-8.2) g/dL Albumin (3.5-5.0) g/dL Amylase (30-110) U/L Lipase (23-300) U/L Urine Color (YELLOW) Urine Appearance (CLEAR) Urine pH (5-6) Ur Specific [place] (1.005-1.025) Urine Protein (Negative) Urine Ketones (NEGATIVE) Urine Blood (0-5) Junito/ul Urine Nitrite (NEGATIVE) Urine Bilirubin (NEGATIVE) Urine Urobilinogen (0-1) mg/dL Ur Leukocyte Esterase (NEGATIVE) Urine WBC (Auto) (0-5) /HPF Urine RBC (Auto) (0-2) /HPF Amorphous Crystals (NEGATIVE) /HPF Urine Mucus (Auto) (NEGATIVE) /HPF Urine Culture Reflexed (NO) Urine Glucose (NEGATIVE) mg/dL - Progress Progress: improved, pain not gone completely, re-examined Counseled pt/family regarding: lab results, diagnosis, need for follow-up - Departure Time of Disposition: 11:44 Departure Disposition: Home Clinical Impression: Chronic abdominal pain, Cyclical vomiting with nausea Condition: Stable Critical Care Time: No Referrals: ELOY SUGGS [Primary Care Provider] - Additional Instructions: drink plenty of fluids. follow up with primary doctor for further control of your chronic pain and chronic vomiting issues
[2018-08-16] MEDS ORDERED: Hydromorphone 1 mg/ml Ampule IV ONE (08:56)
[2018-08-16] MEDS ORDERED: Zofran 4 MG/2 ML VIAL IV ONE (08:56)
[2018-08-16] MEDS ORDERED: Sodium Chloride 0.9% 1000 ML 1,000 ML IV STA ×2 (08:56→11:16)
[2018-08-16 08:57] VITALS: O2SAT 98
[2018-08-16 09:12] LABS: Lactic Acid 1.9 (0.4-2.0)
[2018-08-16 09:14] LABS: Hematocrit 41.8 % (35-47); Hemoglobin 13.7 gm/dl (12.0-16.0); Mean Cell Volume 84.1 fl (78-100); Mean Corpuscular Hemoglobin 27.6 pg (26-32); Mean Corpuscular Hgb Concent. 32.8 g/dl (32-36); Mean Platelet Volume 10.9 fl (6-9.5); Platelet Count 429 K/mm3 (150-450); Red Blood Count 4.97 M/mm3 (4.1-5.4); Red Cell Distribution Width 14.6 % (11.5-14.0); White Blood Count 17.2 K/mm3 (4.0-10.5)
[2018-08-16 09:30] LABS: ALBUMIN 5.2 g/dL (3.5-5.0); ALKALINE PHOSPHATASE 135 U/L (38-126); AMYLASE 56 U/L (30-110); ANION GAP 19.5 MEQ/L (5-15); BLOOD UREA NITROGEN 12 mg/dL (7-17); CHLORIDE 98 mmol/L (98-107); Calcium 10.3 mg/dL (8.4-10.2); Carbon Dioxide 23 mmol/L (22-30); Creatinine 1 0.55 mg/dL (0.52-1.04); Glucose 222 mg/dL (74-106); LIPASE 56 U/L (23-300); Potassium 3.7 mmol/L (3.5-5.1); SGOT/AST 23 U/L (14-36); SGPT/ALT 22 U/L (0-35); SODIUM 137 mmol/L (137-145); Total Protein 8.9 g/dL (6.3-8.2)
[2018-08-16] MEDS ORDERED: Zofran 4 MG/2 ML VIAL ONE (09:31)
[2018-08-16] MEDS ORDERED: Hydromorphone 1 mg/ml Ampule ONE (09:31)
[2018-08-16] MEDS ORDERED: Sodium Chloride 0.9% 1000 ML 1,000 ML ONE ×2 (09:32→11:17)
[2018-08-16 09:39] LABS: BAND 1 % (0.0-2.0); Lymphocytes 6 % (24-44); Monocyte 4 % (0.0-12.0); Neutrophils 89 % (36.0-66.0); Total Cells Counted 100
[2018-08-16 09:40] LABS: Platelet Estimate NORMAL (NORMAL)
[2018-08-16 09:41] LABS: Granulocyte Absolute (ANC) 15.5 (1.4-6.9)
[2018-08-16 10:16] LABS: Appearance SLIGHTLY CLOUDY (CLEAR); Bilirubin NEGATIVE (NEGATIVE); Blood MODERATE Ery/ul (0-5); Glucose 50 mg/dL (NEGATIVE); Ketones SMALL (NEGATIVE); Leukocyte Esterase NEGATIVE (NEGATIVE); Nitrite NEGATIVE (NEGATIVE); Protein,Urine Dip >=500 (Negative); Specific Gravity 1.024 (1.005-1.025); Urobilinogen NEGATIVE mg/dL (0-1)
[2018-08-16] MEDS ORDERED: GI COCKTAIL 45 ML (Maalox/Lidocaine) PO ONE (10:37)
[2018-08-16] MEDS ORDERED: MAALOX ES 30 ML UNIT DOSE ONE (10:46)
[2018-08-16] MEDS ORDERED: XYLOCAINE HCl Viscous ONE (10:46)
[2018-08-16 11:21] VITALS: BP 163/118; PULSE 108
[2018-08-16] MEDS ORDERED: Phenergan 25 MG INJ IV ONE (11:42)
[2018-08-16] MEDS ORDERED: Phenergan 25 MG INJ ONE (11:53)
== END 2018-08-16 12:31 | disposition home or self-care (01) ==
LOC: ED 08:30
DX: R10.84 Generalized abdominal pain (principal); G43.A0 Cyclical vomiting, in migraine, not intractable; R11.0 Nausea; Z79.899 Other long term (current) drug therapy
CPT/HCPCS: 36000; 36415; 80053; 81001; 82150; 83605; 83690; 85025; 87086; 96360; 96361; 96374; 96375; 99284; J1170; J2405; J2550; A9270-GY

== ENCOUNTER 2018-08-19 06:02 | Day surgery (SDC) | payer OTHER ==
[2018-08-19] MEDS ORDERED: DIPRIVAN 200 MG/20 ML IV ONE (06:03)
[2018-08-19] MEDS ORDERED: Lactated Ringers 1,000 ML IV SCH (06:30)
[2018-08-19] MEDS ORDERED: Xopenex 1.25 MG/0.5 ML UD NEBULE IH ONE ×2 (07:19→07:20)
[2018-08-19] MEDS ORDERED: Sodium Chloride 3 ML UD NEBULES IH ONE (07:20)
[2018-08-19 09:19] VITALS: O2SAT 95
[2018-08-19 09:22] VITALS: BP 148/77; PULSE 90
--- NOTE | 2018-08-19 10:24 | OP ---
SURGERY DATE/TIME: 08/19/2018 0750 PREOPERATIVE DIAGNOSIS: Epigastric pain. POSTOPERATIVE DIAGNOSIS: Moderate gastritis. PROCEDURE: Esophagogastroduodenoscopy with biopsy. SURGEON: Dr. Bruce. ANESTHESIA: Medications were given by the anesthesia department. BRIEF HISTORY: The patient is a 47 year old white female who presents now for endoscopic evaluation. She has had persistent nausea and vomiting. She has had two trips to the emergency room in the last week for epigastric pain. The patient reports now however over the past 48 hours that she has improved. The patient was felt the need to have endoscopic evaluation. She was appraised of the risks of the procedure including the risk of perforation, phlebitis, untoward reaction to medication, bleeding and missed lesions. The patient verbalized her understanding and desired to have the procedure performed. DESCRIPTION OF PROCEDURE: The patient was given the medications by the anesthesia department. She had continuous pulse oximetry, ECG monitoring, intermittent blood pressure monitoring and tidal CO2 monitoring during the examination. She was placed in the left lateral decubitus position. A bite block was placed. The flexible Olympus gastroscope was used to intubate the oropharynx. A view of the larynx was obtained and was normal. The scope was easily introduced in the esophagus which appeared to be normal throughout its length. The stomach was entered where patchy areas of erythema were noted throughout the gastric body and antrum. The pylorus encountered and intubated. Duodenum inspected and found to be normal. The scope is withdrawn towards the stomach. A retroflex view obtained of lesser curvature, fundus and cardia regions of the stomach. There was no significant pathology noted here. There was no noted hiatal hernia. The scope was redirected towards the gastric antrum and biopsies were obtained to rule out the presence of Helicobacter pylori-type organisms. The scope was then removed from the patient and the patient was taken back to the hospital [facility] in good condition.
== END 2018-08-19 08:55 | disposition home or self-care (01) ==
LOC: SDC 06:02
PROVIDERS: ATTEND Family Medicine
DX: K29.70 Gastritis, unspecified, without bleeding (principal); K21.9 Gastro-esophageal reflux disease without esophagitis; E11.9 Type 2 diabetes mellitus without complications; Z79.4 Long term (current) use of insulin
CPT/HCPCS: 82962; 94250; 94640; J2704; A9270-GY

== ENCOUNTER 2018-11-17 23:58 | Observation (INO) | payer OTHER ==
[2018-11-18] MEDS ORDERED: PROTONIX 40 MG IV IV ONE ×3 (00:30→09:38)
[2018-11-18] MEDS ORDERED: Sodium Chloride 0.9% 1000 ML 1,000 ML IV SCH (00:30)
[2018-11-18] MEDS ORDERED: Zofran 4 MG/2 ML VIAL IV ONE (00:30)
[2018-11-18] MEDS ORDERED: Phenergan 25 MG INJ IV ONE (00:30)
[2018-11-18] MEDS ORDERED: Phenergan 25 MG INJ ONE (00:36)
[2018-11-18] MEDS ORDERED: Hydromorphone 1 mg/ml Ampule IV ONE ×2 (00:36→02:24)
[2018-11-18] MEDS ORDERED: Zofran 4 MG/2 ML VIAL ONE (00:36)
[2018-11-18] MEDS ORDERED: Sodium Chloride 0.9% 1000 ML 1,000 ML ONE (00:37)
[2018-11-18] MEDS ORDERED: Sodium Chloride 0.9% 100 ML IVPB 100 ML IV ONE (00:37)
--- NOTE | 2018-11-18 00:42 | ERPHSYRPT ---
- History of Present Illness Time Seen by Provider: 11/18/18 00:23 Historian: patient Exam Limitations: clinical condition Patient Subjective Stated Complaint: Vomiting/Abdominal pain Triage Nursing Assessment: Patient brought back to ED via W/C and transferred with assist of 2 to bed. Patient A+O X 3. Patient's skin pale, warm and dry. Patient complains of vomiting and abdominal pain 8/10 since 1800 on 11/17/18. Patient states after she vomits she gets brief relief from her abdominal pain. Patient's lungs noted to be clear a/ eliseo. Abdomen soft and round with BS presentX 4. Physician History: PATIENT WITH A HISTORY OF GASTRITIS, CHRONIC RECURRENT ABDOMINAL PAIN, CYCLIC VOMITING, COMPLAINS OF ACUTE OF FREQUENT VOMITING SINCE 6PM TONIGHT ASSOCIATED WITH EPIGASTRIC ABDOMINAL PAIN. HAS OCCASIONAL RADIATION OF PAIN TO HER BACK. DENIES FEVER, COUGH, URINARY SYMPTOMS OR DIARRHEA. Timing/Duration: today Activities at Onset: none Quality: sharpness Abdominal Pain Onset Location: epigastric Pain Radiation: back Severity of Pain-Max: moderate Severity of Pain-Current: moderate Modifying Factors: Improves With: vomiting Associated Symptoms: loss of appetite, nausea Previous symptoms: same symptoms as today Allergies/Adverse Reactions: NKA Allergy (Mild, Verified 11/18/18 00:06) Home Medications: Alprazolam [Xanax] 1 mg PO BIDPRN PRN 08/23/15 [History] Metformin HCl 500 mg [Glucophage 500 MG] 500 mg PO BID 05/18/17 [History] Dulaglutide [Trulicity] 0.75 ml DAILY 08/15/18 [History] Gabapentin 600 mg TID 08/15/18 [History] OLANZapine [Olanzapine] 10 mg DAILY 08/15/18 [History] Fluoxetine HCl [Prozac] 40 mg PO DAILY 11/18/18 [History] Hydroxyzine HCl 25 mg PO HS 11/18/18 [History] Hx Tetanus, Diphtheria Vaccination/Date Given: Yes Hx Influenza Vaccination/Date Given: Yes Hx Pneumococcal Vaccination/Date Given: No Immunizations Up to Date: Yes - Review of Systems Constitutional: No Fever, No Chills Eyes: No Symptoms Ears, Nose, & Throat: No Symptoms Respiratory: No Cough, No Dyspnea Cardiac: No Chest Pain, No Edema, No Syncope Abdominal/Gastrointestinal: Abdominal Pain, Nausea, Vomiting, Appetite Changes, No Diarrhea Genitourinary Symptoms: No Dysuria Musculoskeletal: No Symptoms, No Back Pain, No Neck Pain Skin: No Rash Neurological: No Dizziness, No Focal Weakness, No Sensory Changes Psychological: No Symptoms Endocrine: No Symptoms All Other Systems: Reviewed and Negative - Past Medical History Pertinent Past Medical History: Yes Neurological History: Migraines ENT History: No Pertinent History Cardiac History: No Pertinent History Respiratory History: Pneumonia Endocrine Medical History: Diabetes Type II Musculoskeletal History: No Pertinent History GI Medical History: GERD, Other History: No Pertinent History Psycho-Social History: Anxiety, Bipolar, Depression Female Reproductive Disorders: No Pertinent History Other Medical History: Gastroenteritis , chronic back pain - Past Surgical History Past Surgical History: Yes Neuro Surgical History: No Pertinent History Cardiac: No Pertinent History Respiratory: No Pertinent History Gastrointestinal: No Pertinent History Genitourinary: No Pertinent History Musculoskeletal: No Pertinent History Female Surgical History: Lumpectomy, Tubal Ligation - Social History Smoking Status: Current some day smoker How long have you smoked: 20 years Exposure to second hand smoke: Yes Drug Use: marijuana Patient Lives Alone: No - Female History Hx Last Menstrual Period: No Hx Now: No - Nursing Vital Signs Nursing Vital Signs: Initial Vital Signs Temperature 97.9 F 11/18/18 00:06 Pulse Rate 94 H 11/18/18 00:06 Respiratory Rate 20 11/18/18 00:06 Blood Pressure 192/135 11/18/18 00:06 O2 Sat by Pulse Oximetry 100 11/18/18 00:06 Pain Scale Pain Intensity 4 - Physical Exam General Appearance: moderate distress, alert Eye Exam: PERRL/EOMI, eyes nml inspection Ears, Nose, Throat Exam: normal ENT inspection, pharynx normal, moist mucous membranes Neck Exam: normal inspection, non-tender, supple, full range of motion Respiratory Exam: normal breath sounds, lungs clear, No respiratory distress Cardiovascular Exam: regular rate/rhythm, normal heart sounds Gastrointestinal/Abdomen Exam: soft, normal bowel sounds, No tenderness ( EPIGASTRIC TENDERNESS), No mass Back Exam: normal inspection, normal range of motion, No CVA tenderness, No vertebral tenderness Extremity Exam: normal inspection, normal range of motion, pelvis stable Neurologic Exam: alert, oriented x 3, cooperative, normal mood/affect, nml cerebellar function, sensation nml, No motor deficits Skin Exam: normal color, warm, dry SpO2: 100 - Course EKG Interpreted by Me: RATE, Sinus Rhythm, NORMAL AXIS - CT Exams Abdomen/Pelvis CT Interpretation: Tele-radiologist Report (NOSPECIFIC SMALL BOWEL WALL THICKENING) Ordered Tests: Active Orders 24 hr Category Date Time Status Clean Catch Urine Specimen STAT Care 11/18/18 00:30 Active EKG-ER Only STAT Care 11/18/18 00:30 Active IV Insertion STAT Care 11/18/18 00:30 Active ABDOMEN AND PELVIS W/0 CONTRAS [CT] Stat Exams 11/18/18 00:29 Taken AMYLASE Stat Lab 11/18/18 00:20 Completed CBC W DIFF Stat Lab 11/18/18 00:20 Completed CMP Stat Lab 11/18/18 00:20 Completed LIPASE Stat Lab 11/18/18 00:20 Completed MAGNESIUM Stat Lab 11/18/18 00:20 Completed TROPONIN Q3H Lab 11/18/18 00:20 Completed TROPONIN Q3H Lab 11/18/18 03:45 Ordered TROPONIN Q3H Lab 11/18/18 06:45 Ordered TROPONIN Q3H Lab 11/18/18 09:45 Ordered TROPONIN Q3H Lab 11/18/18 12:45 Ordered UA W/RFX UR CULTURE Stat Lab 11/18/18 00:47 Completed Medication Summary Generic Name Dose Route Start Last Admin Trade Name Freq PRN Reason Stop Dose Admin Hydralazine HCl 20 mg 11/18/18 02:34 Apresoline 20 Mg/Ml Inj IV 11/18/18 02:35 STAT ONE Sodium Chloride 1,000 mls @ 500 mls/hr 11/18/18 00:30 11/18/18 00:46 Sodium Chloride 0.9% 1000 Ml IV 12/18/18 00:29 500 mls/hr .Q2H SANDIE Administration Discontinued Medications Generic Name Dose Route Start Last Admin Trade Name Freq PRN Reason Stop Dose Admin Hydromorphone HCl 1 mg 11/18/18 00:36 11/18/18 00:46 Hydromorphone 1 Mg/Ml Ampule IV 11/18/18 00:37 1 mg STAT ONE Administration Hydromorphone HCl Confirm 11/18/18 00:44 Hydromorphone 1 Mg/Ml Ampule Administered 11/18/18 00:45 Dose 1 mg .ROUTE .STK-MED ONE Hydromorphone HCl Confirm 11/18/18 02:22 Hydromorphone 1 Mg/Ml Ampule Administered 11/18/18 02:23 Dose 1 mg .ROUTE .STK-MED ONE Hydromorphone HCl 1 mg 11/18/18 02:24 Hydromorphone 1 Mg/Ml Ampule IV 11/18/18 02:25 STAT ONE Sodium Chloride Confirm 11/18/18 00:37 Sodium Chloride 0.9% 100 Ml Ivpb Administered 11/18/18 00:38 Dose 100 mls @ ud IV .STK-MED ONE Ondansetron HCl 4 mg 11/18/18 00:30 11/18/18 00:46 Zofran 4 Mg/2 Ml Vial IV 11/18/18 00:31 4 mg STAT ONE Administration Ondansetron HCl Confirm 11/18/18 00:36 Zofran 4 Mg/2 Ml Vial Administered 11/18/18 00:37 Dose 4 mg .ROUTE .STK-MED ONE Pantoprazole Sodium 40 mg 11/18/18 00:30 11/18/18 00:46 Protonix 40 Mg Iv IV 11/18/18 00:31 40 mg STAT ONE Administration Pantoprazole Sodium Confirm 11/18/18 00:37 Protonix 40 Mg Iv Administered 11/18/18 00:38 Dose 40 mg IV .STK-MED ONE Promethazine HCl 25 mg 11/18/18 00:30 11/18/18 00:46 Phenergan 25 Mg Inj IV 11/18/18 00:31 25 mg STAT ONE Administration Promethazine HCl Confirm 11/18/18 00:36 Phenergan 25 Mg Inj Administered 11/18/18 00:37 Dose 25 mg .ROUTE .STK-MED ONE Lab/Rad Data: Laboratory Result Diagrams 11/18/18 00:20 11/18/18 00:20 Laboratory Results 11/18/18 11/18/18 11/18/18 Range/Units 00:47 00:20 00:20 WBC (4.0-10.5) K/mm3 RBC (4.1-5.4) M/mm3 Hgb (12.0-16.0) gm/dl Hct (35-47) % MCV (78-100) fl MCH (26-32) pg MCHC (32-36) g/dl RDW (11.5-14.0) % Plt Count (150-450) K/mm3 MPV (6-9.5) fl Gran % (36.0-66.0) % Eos # (Auto) (0-0.5) Absolute Lymphs (auto) (1.0-4.6) Absolute Monos (auto) (0.0-1.3) Lymphocytes % (24.0-44.0) % Monocytes % (0.0-12.0) % Eosinophils % (0.00-5.0) % Basophils % (0.0-0.4) % Absolute Granulocytes (1.4-6.9) Basophils # (0-0.4) Sodium (137-145) mmol/L Potassium (3.5-5.1) mmol/L Chloride (98-107) mmol/L Carbon Dioxide (22-30) mmol/L Anion Gap (5-15) MEQ/L BUN (7-17) mg/dL Creatinine (0.52-1.04) mg/dL Estimated GFR ML/MIN Glucose (74-106) mg/dL Calcium (8.4-10.2) mg/dL Magnesium 1.5 L (1.6-2.3) mg/dL Total Bilirubin (0.2-1.3) mg/dL AST (14-36) U/L ALT (0-35) U/L Alkaline Phosphatase (38-126) U/L Troponin I < 0.012 (0.000-0.034) ng/mL Serum Total Protein (6.3-8.2) g/dL Albumin (3.5-5.0) g/dL Amylase (30-110) U/L Lipase (23-300) U/L Urine Color YELLOW (YELLOW) Urine Appearance SLIGHTLY CLOUDY (CLEAR) Urine pH 9.0 (5-6) Ur Specific [place] 1.020 (1.005-1.025) Urine Protein 100 (Negative) Urine Ketones SMALL (NEGATIVE) Urine Blood NEGATIVE (0-5) Junito/ul Urine Nitrite NEGATIVE (NEGATIVE) Urine Bilirubin NEGATIVE (NEGATIVE) Urine Urobilinogen NEGATIVE (0-1) mg/dL Ur Leukocyte Esterase NEGATIVE (NEGATIVE) Urine WBC (Auto) NONE (0-5) /HPF Urine RBC (Auto) 6-10 (0-2) /HPF U Epithel Cells (Auto) FEW (FEW) /HPF Urine Bacteria (Auto) NONE (NEGATIVE) /HPF Urine Mucus (Auto) SLIGHT (NEGATIVE) /HPF Urine Culture Reflexed NO (NO) Urine Glucose NEGATIVE (NEGATIVE) mg/dL 11/18/18 11/18/18 Range/Units 00:20 00:20 WBC 15.6 H (4.0-10.5) K/mm3 RBC 4.82 (4.1-5.4) M/mm3 Hgb 13.9 (12.0-16.0) gm/dl Hct 41.3 (35-47) % MCV 85.7 (78-100) fl MCH 28.8 (26-32) pg MCHC 33.7 (32-36) g/dl RDW 15.0 H (11.5-14.0) % Plt Count 412 (150-450) K/mm3 MPV 11.1 H (6-9.5) fl Gran % 84.6 H (36.0-66.0) % Eos # (Auto) 0.01 (0-0.5) Absolute Lymphs (auto) 1.86 (1.0-4.6) Absolute Monos (auto) 0.48 (0.0-1.3) Lymphocytes % 12.0 L (24.0-44.0) % Monocytes % 3.1 (0.0-12.0) % Eosinophils % 0.1 (0.00-5.0) % Basophils % 0.2 (0.0-0.4) % Absolute Granulocytes 13.18 H (1.4-6.9) Basophils # 0.03 (0-0.4) Sodium 138 (137-145) mmol/L Potassium 3.6 (3.5-5.1) mmol/L Chloride 98 (98-107) mmol/L Carbon Dioxide 21 L (22-30) mmol/L Anion Gap 23.0 H (5-15) MEQ/L BUN 20 H (7-17) mg/dL Creatinine 0.69 (0.52-1.04) mg/dL Estimated GFR > 60.0 ML/MIN Glucose 192 H (74-106) mg/dL Calcium 10.4 H (8.4-10.2) mg/dL Magnesium (1.6-2.3) mg/dL Total Bilirubin 0.50 (0.2-1.3) mg/dL AST 19 (14-36) U/L ALT 48 H (0-35) U/L Alkaline Phosphatase 140 H (38-126) U/L Troponin I (0.000-0.034) ng/mL Serum Total Protein 8.6 H (6.3-8.2) g/dL Albumin 5.2 H (3.5-5.0) g/dL Amylase 69 (30-110) U/L Lipase 114 (23-300) U/L Urine Color (YELLOW) Urine Appearance (CLEAR) Urine pH (5-6) Ur Specific [place] (1.005-1.025) Urine Protein (Negative) Urine Ketones (NEGATIVE) Urine Blood (0-5) Junito/ul Urine Nitrite (NEGATIVE) Urine Bilirubin (NEGATIVE) Urine Urobilinogen (0-1) mg/dL Ur Leukocyte Esterase (NEGATIVE) Urine WBC (Auto) (0-5) /HPF Urine RBC (Auto) (0-2) /HPF U Epithel Cells (Auto) (FEW) /HPF Urine Bacteria (Auto) (NEGATIVE) /HPF Urine Mucus (Auto) (NEGATIVE) /HPF Urine Culture Reflexed (NO) Urine Glucose (NEGATIVE) mg/dL - Progress Progress: pain not gone completely Progress Note: 11/18/18 02:20 IV NORMAL SALINE 500ML/HR, ZOFRAN 4MG, DILAUDID 1MG, PHENERGAN 25MG IV Counseled pt/family regarding: diagnosis - Departure Departure Disposition: Observation Clinical Impression: INTRACTABLE EMESIS, ACUTE GASTRITIS, HYPERTENSION Condition: Stable Critical Care Time: No Referrals: ELOY SUGGS [Primary Care Provider] -
[2018-11-18] MEDS ORDERED: Hydromorphone 1 mg/ml Ampule ONE ×2 (00:44→02:22)
[2018-11-18 00:46] LABS: BASOPHIL % 0.2 % (0.0-0.4); Basophil (Absolute #) 0.03 (0-0.4); Eosinophil % 0.1 % (0.00-5.0); Eosinophil (Absolute #) 0.01 (0-0.5); Granulocyte Absolute (ANC) 13.18 (1.4-6.9); Granulocytes % 84.6 % (36.0-66.0); Hematocrit 41.3 % (35-47); Hemoglobin 13.9 gm/dl (12.0-16.0); Lymphocyte (Absolute #) 1.86 (1.0-4.6); Mean Cell Volume 85.7 fl (78-100); Mean Corpuscular Hemoglobin 28.8 pg (26-32); Mean Corpuscular Hgb Concent. 33.7 g/dl (32-36); Mean Platelet Volume 11.1 fl (6-9.5); Monocyte (Absolute #) 0.48 (0.0-1.3); Monocytes % 3.1 % (0.0-12.0); Platelet Count 412 K/mm3 (150-450); Red Blood Count 4.82 M/mm3 (4.1-5.4); White Blood Count 15.6 K/mm3 (4.0-10.5)
[2018-11-18 01:03] LABS: ALBUMIN 5.2 g/dL (3.5-5.0); ALKALINE PHOSPHATASE 140 U/L (38-126); AMYLASE 69 U/L (30-110); BLOOD UREA NITROGEN 20 mg/dL (7-17); CHLORIDE 98 mmol/L (98-107); Calcium 10.4 mg/dL (8.4-10.2); Carbon Dioxide 21 mmol/L (22-30); Creatinine 1 0.69 mg/dL (0.52-1.04); Glucose 192 mg/dL (74-106); LIPASE 114 U/L (23-300); Potassium 3.6 mmol/L (3.5-5.1); SGOT/AST 19 U/L (14-36); SGPT/ALT 48 U/L (0-35); SODIUM 138 mmol/L (137-145); Total Protein 8.6 g/dL (6.3-8.2)
[2018-11-18 01:20] LABS: Appearance SLIGHTLY CLOUDY (CLEAR); Bilirubin NEGATIVE (NEGATIVE); Blood NEGATIVE Ery/ul (0-5); Epithelial Cells FEW /HPF (FEW); Glucose NEGATIVE (NEGATIVE); Ketones SMALL (NEGATIVE); Leukocyte Esterase NEGATIVE (NEGATIVE); Mucus SLIGHT /HPF (NEGATIVE); Nitrite NEGATIVE (NEGATIVE); Protein,Urine Dip 100 (Negative); Urobilinogen NEGATIVE mg/dL (0-1)
[2018-11-18] MEDS ORDERED: APRESOLINE 20 MG/ML INJ IV ONE (02:34)
[2018-11-18] MEDS ORDERED: APRESOLINE 20 MG/ML INJ ONE (02:36)
[2018-11-18] MEDS ORDERED: Sodium Chloride 0.9% W/ 20 mEq KCl/LITER 1,000 ML IV ONE (02:55)
[2018-11-18] MEDS ORDERED: Sodium Chloride 0.9% W/ 20 mEq KCl/LITER 1,000 ML IV SCH ×2 (03:00→03:15)
[2018-11-18] MEDS ORDERED: NovoLOG Insulin SQ PRN (03:02)
[2018-11-18] MEDS ORDERED: TYLENOL 325 MG PO PRN (03:02)
[2018-11-18] MEDS ORDERED: APRESOLINE 20 MG/ML INJ IV PRN (03:10)
[2018-11-18] MEDS: MORPHINE SULFATE 4 MG INJ IV PRN ×2 (04:00→08:29)
[2018-11-18] MEDS ORDERED: Catapres 0.1 MG ONE (04:24)
[2018-11-18] MEDS ORDERED: Ativan 2 MG/1 ML VIAL ONE (04:24)
[2018-11-18] MEDS: Ativan 2 MG/1 ML VIAL IV PRN ×2 (04:28→08:02)
[2018-11-18] MEDS: Catapres 0.1 MG PO SCH ×2 (04:29→04:31)
[2018-11-18] MEDS ORDERED: Zofran 4 MG/2 ML VIAL IV PRN (04:40)
[2018-11-18] MEDS ORDERED: Phenergan 25 MG INJ IV PRN (04:40)
--- NOTE | 2018-11-18 08:54 | XRAY ---
Indication: Epigastric pain and emesis. Multiple contiguous axial images obtained through the abdomen and pelvis without contrast as ordered. Comparison: July 30, 2018. Lung bases remain clear. Heart is not enlarged. Stable small hiatal hernia. Noncontrasted stomach and bowel loops appear nonobstructed. Appendix not clearly seen. No free fluid/air. Stable calcified splenic granulomas. Remaining liver, gallbladder, pancreas, spleen, adrenal glands, kidneys, ureters, bladder, uterus, and aorta appear unremarkable for noncontrast exam. Osseous structures intact. No ventral or inguinal hernias. Impression: 1. Stable small hiatal hernia. 3. Remaining CT abdomen/pelvis without contrast exam is negative Comment: Preliminary interpretation was made by [facility]. No critical discrepancy. CT DI 20.18
[2018-11-18] MEDS ORDERED: Reglan 10 MG PO PRN (09:23)
[2018-11-18] MEDS ORDERED: PHENERGAN 25 MG PO PRN (09:23)
[2018-11-18] MEDS ORDERED: ALPRAZOLAM 1 MG PO PRN (09:23)
[2018-11-18] MEDS ORDERED: XANAX 1 MG PO PRN (09:31)
[2018-11-18] MEDS ORDERED: M PROGEST ACET PO SCH (10:00)
[2018-11-18] MEDS ORDERED: NON-FORMULARY ITEM (Omeprazole [Prilosec] 20 MG) PO SCH (10:00)
[2018-11-18] MEDS ORDERED: ESTROGEN CON PO SCH (10:00)
[2018-11-18] MEDS ORDERED: NEURONTIN 300 MG PO SCH (10:00)
[2018-11-18] MEDS ORDERED: Protonix 40MG Tablet PO SCH (10:00)
[2018-11-18] MEDS ORDERED: Maxzide 25MG PO SCH (10:00)
[2018-11-18] MEDS ORDERED: Glucophage 500 MG PO SCH (10:00)
[2018-11-18] MEDS: Toprol Xl 100 MG PO SCH ×2 (10:04→10:52)
[2018-11-18] MEDS ORDERED: Maxzide-25MG Tablet PO SCH (11:30)
[2018-11-18 11:55] VITALS: BP 133/92; PULSE 124; O2SAT 98
--- NOTE | 2018-11-18 12:46 | PCM.DCORD ---
- Discharge Discharge Date: 11/18/18 Prescriptions: New Clonidine HCl 0.1 mg PO TID #90 tablet Metoprolol Succinate 100 mg [Toprol Xl 100 MG] 100 mg PO BID #60 tablet Continue Omeprazole [Prilosec] 20 mg PO DAILY #30 capsule. Alprazolam [Xanax] 1 mg PO BIDPRN PRN PRN Reason: Anxiety Metformin HCl 500 mg [Glucophage 500 MG] 500 mg PO BID Promethazine HCl 25 mg [Phenergan 25 mg] 25 mg PO Q8H PRN PRN #10 tablet PRN Reason: Nausea/Vomiting OLANZapine [Olanzapine] 10 mg PO HS Gabapentin 600 mg PO TID Dulaglutide [Trulicity] 0.75 ml SQ 1800 Metoclopramide HCl [Reglan] 10 mg PO Q8H PRN PRN #12 tablet PRN Reason: Nausea/Vomiting Hydroxyzine HCl 25 mg PO HS Fluoxetine HCl [Prozac] 40 mg PO HS Estrogen,Con/M-Progest Acet [Prempro 0.3 mg-1.5 mg Tablet] 1 each PO DAILY Hctz/Triamterene 25/37.5 mg [Maxzide 25MG] 1 tab PO DAILY Follow up with: ELOY SUGGS [Primary Care Provider] - 11/25/18 9:15 am
[2018-11-18] MEDS ORDERED: MEDICATION INTERVENTION MC SCH ×2 (13:30→13:45)
[2018-11-18] MEDS ORDERED: DULAGLUTIDE SQ SCH (18:00)
[2018-11-18] MEDS ORDERED: Prozac 20 MG PO SCH (22:00)
[2018-11-18] MEDS ORDERED: PROTONIX 40 MG IV IV SCH (22:00)
[2018-11-18] MEDS ORDERED: zyPREXA 5MG TABLET PO SCH ×2 (22:00)
[2018-11-18] MEDS ORDERED: ATARAX 25 MG PO SCH (22:00)
[2018-11-18] MEDS ORDERED: NON-FORMULARY ITEM (Fluoxetine Hcl [Prozac] 40 MG) PO SCH (22:00)
== END 2018-11-18 14:25 | disposition home or self-care (01) ==
LOC: ED 23:58 → MED SURG 11-18 03:42
PROVIDERS: ADMIT Family Medicine; ATTEND Family Medicine
DX: R11.2 Nausea with vomiting, unspecified (principal); R10.13 Epigastric pain; M54.9 Dorsalgia, unspecified; I10 Essential (primary) hypertension; E11.9 Type 2 diabetes mellitus without complications; Z79.899 Other long term (current) drug therapy; Z79.84 Long term (current) use of oral hypoglycemic drugs
CPT/HCPCS: 36000; 36415; 74176; 80053; 81001; 82150; 82962; 83690; 83735; 84484; 85025; 93005; 93268; 94762; 96360; 96361; 96374; 96375; 96376; 99285; G0378; J0360; J1170; J2060; J2270; J2405; J2550; A9270-GY

== ENCOUNTER 2018-12-31 10:10 | Observation (INO) | payer OTHER ==
[2018-12-31] MEDS ORDERED: Phenergan 25 MG INJ IM ONE (10:35)
[2018-12-31] MEDS ORDERED: Sodium Chloride 0.9% 1000 ML 1,000 ML IV STA ×2 (10:35→11:46)
[2018-12-31] MEDS ORDERED: Sodium Chloride 0.9% 1000 ML 1,000 ML ONE ×2 (10:40→11:50)
[2018-12-31] MEDS ORDERED: Phenergan 25 MG INJ ONE (10:40)
[2018-12-31 10:42] LABS: BASOPHIL % 0.2 % (0.0-0.4); Basophil (Absolute #) 0.04 (0-0.4); Eosinophil % 0.4 % (0.00-5.0); Eosinophil (Absolute #) 0.07 (0-0.5); Granulocyte Absolute (ANC) 13.75 (1.4-6.9); Granulocytes % 80.4 % (36.0-66.0); Hematocrit 44.3 % (35-47); Hemoglobin 14.8 gm/dl (12.0-16.0); Lymphocyte (Absolute #) 2.46 (1.0-4.6); Lymphocytes % 14.4 % (24.0-44.0); Mean Cell Volume 88.2 fl (78-100); Mean Corpuscular Hemoglobin 29.5 pg (26-32); Mean Corpuscular Hgb Concent. 33.4 g/dl (32-36); Mean Platelet Volume 11.2 fl (6-9.5); Monocyte (Absolute #) 0.79 (0.0-1.3); Monocytes % 4.6 % (0.0-12.0); Platelet Count 378 K/mm3 (150-450); Red Blood Count 5.02 M/mm3 (4.1-5.4); Red Cell Distribution Width 15.1 % (11.5-14.0); White Blood Count 17.1 K/mm3 (4.0-10.5)
[2018-12-31] MEDS ORDERED: Hydromorphone 1 mg/ml Ampule IV ONE ×2 (10:42→12:13)
--- NOTE | 2018-12-31 10:42 | ERPHSYRPT ---
- History of Present Illness Time Seen by Provider: 12/31/18 10:37 Historian: patient Exam Limitations: no limitations Patient Subjective Stated Complaint: sudden onset of nausea, vomiting this am. states she drank milk last night and thinks that is what started the nausea. states had normal bowel movement today. Triage Nursing Assessment: to room per w/c. skin w/d, pale, resp nonlabored. patient moaning, crying and doubled over holding abd. retching noted but no emesis observed. abd soft, tender to touch. bowel sounds heard but are hypoactive. Physician History: 48-year-old white female with history of chronic recurrent abdominal pain, cyclic vomiting, and diabetes, migraines, GERD, anxiety, bipolar depression and chronic back pain. Patient arrives with complaints of diffuse abdominal pain worse in the epigastric region symptoms since last night. She states she's been vomiting. Past medical history includes migraines, diabetes, GERD, anxiety, bipolar depression, gastroenteritis, chronic back pain Past surgical history includes lumpectomy, tubal ligation Social history includes marijuana and tobacco Timing/Duration: yesterday (last night) Activities at Onset: none Quality: cramping Abdominal Pain Onset Location: unknown Pain Radiation: no radiation Severity of Pain-Max: moderate Severity of Pain-Current: moderate Modifying Factors: Improves With: nothing Associated Symptoms: nausea, vomiting, No back, No chest pain, No diaphoresis, No diarrhea, No fever/chills, No fatigue, No headache, No heartburn, No loss of appetite, No neck pain, No rash, No shortness of breath, No syncope Previous symptoms: same symptoms as today (patient seen multiple times in the past for cyclic vomiting and abdominal pain) Allergies/Adverse Reactions: NKA Allergy (Mild, Verified 12/31/18 10:28) Home Medications: Alprazolam [Xanax] 1 mg PO BIDPRN PRN 08/23/15 [History] Metformin HCl 500 mg [Glucophage 500 MG] 500 mg PO BID 05/18/17 [History] Dulaglutide [Trulicity] 0.75 ml SQ 1800 08/15/18 [History] Gabapentin 600 mg PO TID 08/15/18 [History] OLANZapine [Olanzapine] 10 mg PO HS 08/15/18 [History] Estrogen,Con/M-Progest Acet [Prempro 0.3 mg-1.5 mg Tablet] 1 each PO DAILY 11/18 [History] Fluoxetine HCl [Prozac] 40 mg PO HS 11/18/18 [History] Hctz/Triamterene 25/37.5 mg [Maxzide 25MG] 1 tab PO DAILY 11/18/18 [History] Hydroxyzine HCl 25 mg PO HS 11/18/18 [History] Hx Tetanus, Diphtheria Vaccination/Date Given: Yes Hx Influenza Vaccination/Date Given: Yes Hx Pneumococcal Vaccination/Date Given: No - Review of Systems Constitutional: No Fever, No Chills Eyes: No Symptoms Ears, Nose, & Throat: No Symptoms Respiratory: No Cough, No Dyspnea Cardiac: No Chest Pain, No Edema, No Syncope Abdominal/Gastrointestinal: Abdominal Pain, Nausea, Vomiting, No Diarrhea, No Constipation, No Hematemesis, No Hematochezia, No Melena, No Dysphagia, No Appetite Changes Genitourinary Symptoms: No Dysuria Musculoskeletal: No Back Pain, No Neck Pain Skin: No Rash Neurological: No Dizziness, No Focal Weakness, No Sensory Changes Psychological: No Symptoms Endocrine: No Symptoms All Other Systems: Reviewed and Negative - Past Medical History Pertinent Past Medical History: Yes Neurological History: Migraines ENT History: No Pertinent History Cardiac History: No Pertinent History Respiratory History: Pneumonia Endocrine Medical History: Diabetes Type II Musculoskeletal History: No Pertinent History GI Medical History: GERD, Other History: No Pertinent History Psycho-Social History: Anxiety, Bipolar, Depression Female Reproductive Disorders: No Pertinent History Other Medical History: Gastroenteritis , chronic back pain - Past Surgical History Past Surgical History: Yes Neuro Surgical History: No Pertinent History Cardiac: No Pertinent History Respiratory: No Pertinent History Gastrointestinal: No Pertinent History Genitourinary: No Pertinent History Musculoskeletal: No Pertinent History Female Surgical History: Lumpectomy, Tubal Ligation - Social History Smoking Status: Current every day smoker How long have you smoked: 20 years Exposure to second hand smoke: Yes Drug Use: marijuana Patient Lives Alone: No - Female History Hx Now: No - Nursing Vital Signs Nursing Vital Signs: Initial Vital Signs Temperature 97.4 F 12/31/18 10:19 Pulse Rate 91 H 12/31/18 10:19 Respiratory Rate 20 12/31/18 10:19 Blood Pressure 191/117 12/31/18 10:19 O2 Sat by Pulse Oximetry 100 12/31/18 10:19 Pain Scale Pain Intensity 4 - Physical Exam General Appearance: moderate distress, alert Eye Exam: PERRL/EOMI, eyes nml inspection Ears, Nose, Throat Exam: normal ENT inspection, pharynx normal, moist mucous membranes Neck Exam: normal inspection, non-tender, supple, full range of motion Respiratory Exam: normal breath sounds, lungs clear, No respiratory distress Cardiovascular Exam: regular rate/rhythm, normal heart sounds, capillary refill <2 sec Gastrointestinal/Abdomen Exam: soft, normal bowel sounds, tenderness ( periumbilical tenderness), No distention, No mass, No guarding, No ecchymosis, No pulsatile mass, No rebound, No hernia, No hepatomegaly, No organomegaly, No splenomegaly Back Exam: normal inspection, normal range of motion, No CVA tenderness, No vertebral tenderness Extremity Exam: normal inspection, normal range of motion, pelvis stable Neurologic Exam: alert, oriented x 3, 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 Compared to November 18, 2018) - CT Exams Abdomen/Pelvis CT Interpretation: Discussed w/radiologist (CT abdomen and pelvis with contrast : Impression 1. Stable small hiatal hernia with now evidence for gastroesophageal reflux. 2. Stable calcified splenic granulomas. 3. Remaining CT abdomen/pelvis with contrast exam is negative.) Ordered Tests: Active Orders 24 hr Category Date Time Status Accucheck STAT Care 12/31/18 10:37 Active EKG-ER Only STAT Care 12/31/18 10:45 Active IV Insertion STAT Care 12/31/18 10:35 Active ABDOMEN AND PELVIS W CONTRAST [CT] Stat Exams 12/31/18 12:15 Completed AMYLASE Stat Lab 12/31/18 10:35 Completed CBC W DIFF Stat Lab 12/31/18 10:35 Completed CMP Stat Lab 12/31/18 10:35 Completed HCG QUALITATIVE,SERUM Stat Lab 12/31/18 10:35 Completed LIPASE Stat Lab 12/31/18 10:35 Completed UA W/RFX UR CULTURE Stat Lab 12/31/18 10:53 Completed Urine Triage Profile Stat Lab 12/31/18 10:53 Completed Transfer Order Routine Transfer 12/31/18 Ordered Medication Summary Discontinued Medications Generic Name Dose Route Start Last Admin Trade Name Georges PRN Reason Stop Dose Admin Clonidine 0.1 mg 12/31/18 11:46 12/31/18 11:55 Catapres 0.1 Mg PO 12/31/18 11:47 0.1 mg STAT ONE Administration Clonidine Confirm 12/31/18 11:50 Catapres 0.1 Mg Administered 12/31/18 11:51 Dose 0.1 mg .ROUTE .STK-MED ONE Hydralazine HCl 10 mg 12/31/18 13:47 12/31/18 13:56 Apresoline 20 Mg/Ml Inj IV 12/31/18 13:48 10 mg STAT ONE Administration Hydralazine HCl Confirm 12/31/18 13:50 Apresoline 20 Mg/Ml Inj Administered 12/31/18 13:51 Dose 20 mg .ROUTE .STK-MED ONE Hydromorphone HCl 1 mg 12/31/18 10:42 12/31/18 10:47 Hydromorphone 1 Mg/Ml Ampule IV 12/31/18 10:43 1 mg STAT ONE Administration Hydromorphone HCl Confirm 12/31/18 10:44 Hydromorphone 1 Mg/Ml Ampule Administered 12/31/18 10:45 Dose 1 mg .ROUTE .STK-MED ONE Hydromorphone HCl 1 mg 12/31/18 12:13 12/31/18 12:20 Hydromorphone 1 Mg/Ml Ampule IV 12/31/18 12:14 1 mg STAT ONE Administration Hydromorphone HCl Confirm 12/31/18 12:16 Hydromorphone 1 Mg/Ml Ampule Administered 12/31/18 12:17 Dose 1 mg .ROUTE .STK-MED ONE Sodium Chloride 1,000 mls @ 999 mls/hr 12/31/18 10:35 12/31/18 11:46 Sodium Chloride 0.9% 1000 Ml IV 12/31/18 11:35 Infused .Q1H1M STA Infusion Sodium Chloride Confirm 12/31/18 10:40 Sodium Chloride 0.9% 1000 Ml Administered 12/31/18 10:41 Dose 1,000 mls @ ud .ROUTE .STK-MED ONE Sodium Chloride 1,000 mls @ 999 mls/hr 12/31/18 11:46 12/31/18 13:15 Sodium Chloride 0.9% 1000 Ml IV 12/31/18 12:46 Infused .Q1H1M STA Infusion Sodium Chloride Confirm 12/31/18 11:50 Sodium Chloride 0.9% 1000 Ml Administered 12/31/18 11:51 Dose 1,000 mls @ ud .ROUTE .STK-MED ONE Lorazepam 1 mg 12/31/18 14:09 Ativan 2 Mg/1 Ml Vial IV 12/31/18 14:10 STAT ONE Lorazepam Confirm 12/31/18 14:12 Ativan 2 Mg/1 Ml Vial Administered 12/31/18 14:13 Dose 2 mg .ROUTE .STK-MED ONE Ondansetron HCl 4 mg 12/31/18 11:46 12/31/18 11:54 Zofran 4 Mg/2 Ml Vial IV 12/31/18 11:47 4 mg STAT ONE Administration Ondansetron HCl Confirm 12/31/18 11:50 Zofran 4 Mg/2 Ml Vial Administered 12/31/18 11:51 Dose 4 mg .ROUTE .STK-MED ONE Pantoprazole Sodium 40 mg 12/31/18 13:07 12/31/18 13:15 Protonix 40 Mg Iv IV 12/31/18 13:08 40 mg STAT ONE Administration Pantoprazole Sodium Confirm 12/31/18 13:13 Protonix 40 Mg Iv Administered 12/31/18 13:14 Dose 40 mg IV .STK-MED ONE Promethazine HCl 25 mg 12/31/18 10:35 12/31/18 10:46 Phenergan 25 Mg Inj IM 12/31/18 10:36 25 mg STAT ONE Administration Promethazine HCl Confirm 12/31/18 10:40 Phenergan 25 Mg Inj Administered 12/31/18 10:41 Dose 25 mg .ROUTE .STK-MED ONE Lab/Rad Data: Laboratory Result Diagrams 12/31/18 10:35 12/31/18 10:35 Laboratory Results 12/31/18 12/31/18 12/31/18 Range/Units 10:53 10:53 10:35 WBC (4.0-10.5) K/mm3 RBC (4.1-5.4) M/mm3 Hgb (12.0-16.0) gm/dl Hct (35-47) % MCV (78-100) fl MCH (26-32) pg MCHC (32-36) g/dl RDW (11.5-14.0) % Plt Count (150-450) K/mm3 MPV (6-9.5) fl Gran % (36.0-66.0) % Eos # (Auto) (0-0.5) Absolute Lymphs (auto) (1.0-4.6) Absolute Monos (auto) (0.0-1.3) Lymphocytes % (24.0-44.0) % Monocytes % (0.0-12.0) % Eosinophils % (0.00-5.0) % Basophils % (0.0-0.4) % Absolute Granulocytes (1.4-6.9) Basophils # (0-0.4) Sodium (137-145) mmol/L Potassium (3.5-5.1) mmol/L Chloride (98-107) mmol/L Carbon Dioxide (22-30) mmol/L Anion Gap (5-15) MEQ/L BUN (7-17) mg/dL Creatinine (0.52-1.04) mg/dL Estimated GFR ML/MIN Glucose (74-106) mg/dL Calcium (8.4-10.2) mg/dL Total Bilirubin (0.2-1.3) mg/dL AST (14-36) U/L ALT (0-35) U/L Alkaline Phosphatase (38-126) U/L Serum Total Protein (6.3-8.2) g/dL Albumin (3.5-5.0) g/dL Amylase (30-110) U/L Lipase (23-300) U/L Serum , Qual NEGATIVE (Negative) Urine Color YELLOW (YELLOW) Urine Appearance CLEAR (CLEAR) Urine pH 8.0 (5-6) Ur Specific [place] 1.020 (1.005-1.025) Urine Protein 100 (Negative) Urine Ketones NEGATIVE (NEGATIVE) Urine Blood NEGATIVE (0-5) [place]/ul Urine Nitrite NEGATIVE (NEGATIVE) Urine Bilirubin NEGATIVE (NEGATIVE) Urine Urobilinogen NEGATIVE (0-1) mg/dL Ur Leukocyte Esterase NEGATIVE (NEGATIVE) Urine WBC (Auto) NONE (0-5) /HPF Urine RBC (Auto) 11-15 (0-2) /HPF U Epithel Cells (Auto) RARE (FEW) /HPF Urine Bacteria (Auto) RARE (NEGATIVE) /HPF Urine Mucus (Auto) SLIGHT (NEGATIVE) /HPF Urine Culture Reflexed NO (NO) Urine Glucose NEGATIVE (NEGATIVE) mg/dL Urine Opiates Level NEGATIVE (NEGATIVE) Ur Methadone NEGATIVE (NEGATIVE) Urine Barbiturates NEGATIVE (NEGATIVE) Ur Phencyclidine (PCP) NEGATIVE (NEGATIVE) Urine Amphetamine NEGATIVE (NEGATIVE) U Benzodiazepine Level NEGATIVE (NEGATIVE) Urine Cocaine NEGATIVE (NEGATIVE) Urine Marijuana (THC) POSITIVE (NEGATIVE) 12/31/18 12/31/18 Range/Units 10:35 10:35 WBC 17.1 H (4.0-10.5) K/mm3 RBC 5.02 (4.1-5.4) M/mm3 Hgb 14.8 (12.0-16.0) gm/dl Hct 44.3 (35-47) % MCV 88.2 (78-100) fl MCH 29.5 (26-32) pg MCHC 33.4 (32-36) g/dl RDW 15.1 H (11.5-14.0) % Plt Count 378 (150-450) K/mm3 MPV 11.2 H (6-9.5) fl Gran % 80.4 H (36.0-66.0) % Eos # (Auto) 0.07 (0-0.5) Absolute Lymphs (auto) 2.46 (1.0-4.6) Absolute Monos (auto) 0.79 (0.0-1.3) Lymphocytes % 14.4 L (24.0-44.0) % Monocytes % 4.6 (0.0-12.0) % Eosinophils % 0.4 (0.00-5.0) % Basophils % 0.2 (0.0-0.4) % Absolute Granulocytes 13.75 H (1.4-6.9) Basophils # 0.04 (0-0.4) Sodium 140 (137-145) mmol/L Potassium 3.5 (3.5-5.1) mmol/L Chloride 99 (98-107) mmol/L Carbon Dioxide 25 (22-30) mmol/L Anion Gap 19.6 H (5-15) MEQ/L BUN 22 H (7-17) mg/dL Creatinine 0.67 (0.52-1.04) mg/dL Estimated GFR > 60.0 ML/MIN Glucose 200 H (74-106) mg/dL Calcium 10.5 H (8.4-10.2) mg/dL Total Bilirubin 0.50 (0.2-1.3) mg/dL AST 21 (14-36) U/L ALT 27 (0-35) U/L Alkaline Phosphatase 163 H (38-126) U/L Serum Total Protein 8.6 H (6.3-8.2) g/dL Albumin 5.1 H (3.5-5.0) g/dL Amylase 62 (30-110) U/L Lipase 122 (23-300) U/L Serum , Qual (Negative) Urine Color (YELLOW) Urine Appearance (CLEAR) Urine pH (5-6) Ur Specific [place] (1.005-1.025) Urine Protein (Negative) Urine Ketones (NEGATIVE) Urine Blood (0-5) [place]/ul Urine Nitrite (NEGATIVE) Urine Bilirubin (NEGATIVE) Urine Urobilinogen (0-1) mg/dL Ur Leukocyte Esterase (NEGATIVE) Urine WBC (Auto) (0-5) /HPF Urine RBC (Auto) (0-2) /HPF U Epithel Cells (Auto) (FEW) /HPF Urine Bacteria (Auto) (NEGATIVE) /HPF Urine Mucus (Auto) (NEGATIVE) /HPF Urine Culture Reflexed (NO) Urine Glucose (NEGATIVE) mg/dL Urine Opiates Level (NEGATIVE) Ur Methadone (NEGATIVE) Urine Barbiturates (NEGATIVE) Ur Phencyclidine (PCP) (NEGATIVE) Urine Amphetamine (NEGATIVE) U Benzodiazepine Level (NEGATIVE) Urine Cocaine (NEGATIVE) Urine Marijuana (THC) (NEGATIVE) - Progress Progress: improved Progress Note: 12/31/18 13:57 This is a 48-year-old white female with history of migraines, diabetes type 2, GERD, anxiety, bipolar depression, osteoarthritis, chronic back pain, chronic recurrent abdominal pain, cyclic vomiting. She arrives with complaint of epigastric and periumbilical abdominal pain of persistent vomiting symptoms since last night. She also was noted have elevated blood pressure of 191/117 on arrival on arrival patient did appear to be in moderate distress. She had an EKG which showed sinus rhythm 90 bpm normal axis she had no chest pain she had CBC white blood cell 17.1 hemoglobin 14.8 hematocrit 44.3 platelets 378. Patient's chemistry sodium 140 potassium 3.5 chloride 99 bicarbonate 25 BUN 22 creatinine 0.67 glucose 200 Amylase was 62 lipase 122 Urinalysis was negative that there were no ketones there was a few red cells Patient had a CT of the abdomen which showed stable small hiatal hernia with evidence for gastroesophageal reflux. Small calcified splenic granulomas remaining CT of the abdomen and pelvis was essentially normal. Patient was given Phenergan 25 mg IM, Zofran 4 mg IV, IV normal saline 2 L, she was also given hydromorphone 1 mg IV 2, also given clonidine 0.1 mg orally for her blood pressure as well as just now has received hydralazine 10 mg IV. Also given Protonix 40 mg IV secondary to complaints of heartburn. Patient is improved however still feels nauseous still some mild abdominal pain patient did have a blood pressure 191/117 on arrival this came down to a diastolic of 96 but shortly went back up this is when she was given her clonidine. it was 193/112 therefore she was just now given hydralazine 10 mg IV. I've discussed the patient's case with Dr. Bruce will place patient on observation. Diagnosis 1 epigastric abdominal pain 2. GERD. 3. Persistent nausea and vomiting 4. Hypertension Will start patient on one half normal saline with 20 mEq of potassium chloride to run at 100 mL per hour. Will go ahead and continue hydralazine 10 mg IV every 4 hours when necessary systolic blood pressure greater than 180 or diastolic blood pressure greater than 90. Will continue Zofran 4 mg IV every 4 hours when necessary nausea and vomiting and Phenergan 25 mg IM when necessary nausea and vomiting. Will maintain patient on telemetry. 12/31/18 14:17 patient given 1 mg ativan IV in er for anxiety. - Departure Time of Disposition: 14:18 Departure Disposition: Observation Clinical Impression: Epigastric abdominal pain, persistent nausea and vomiting GERD (gastroesophageal reflux disease) Qualifiers: Esophagitis presence: esophagitis presence not specified Qualified Code(s): K21.9 - Gastro-esophageal reflux disease without esophagitis Hypertension Qualifiers: Hypertension type: unspecified Qualified Code(s): I10 - Essential (primary) hypertension Condition: Fair Critical Care Time: No Referrals: ELOY BRUCE [Primary Care Provider] -
[2018-12-31] MEDS ORDERED: Hydromorphone 1 mg/ml Ampule ONE ×2 (10:44→12:16)
[2018-12-31 10:53] LABS: ALBUMIN 5.1 g/dL (3.5-5.0); ALKALINE PHOSPHATASE 163 U/L (38-126); AMYLASE 62 U/L (30-110); ANION GAP 19.6 MEQ/L (5-15); BLOOD UREA NITROGEN 22 mg/dL (7-17); CHLORIDE 99 mmol/L (98-107); Calcium 10.5 mg/dL (8.4-10.2); Carbon Dioxide 25 mmol/L (22-30); Creatinine 1 0.67 mg/dL (0.52-1.04); Glucose 200 mg/dL (74-106); LIPASE 122 U/L (23-300); Potassium 3.5 mmol/L (3.5-5.1); SGOT/AST 21 U/L (14-36); SGPT/ALT 27 U/L (0-35); SODIUM 140 mmol/L (137-145); Total Protein 8.6 g/dL (6.3-8.2)
[2018-12-31 11:23] LABS: Appearance CLEAR (CLEAR); Bilirubin NEGATIVE (NEGATIVE); Blood NEGATIVE Ery/ul (0-5); Glucose NEGATIVE (NEGATIVE); Ketones NEGATIVE (NEGATIVE); Leukocyte Esterase NEGATIVE (NEGATIVE); Mucus SLIGHT /HPF (NEGATIVE); Nitrite NEGATIVE (NEGATIVE); Protein,Urine Dip 100 (Negative); Urobilinogen NEGATIVE mg/dL (0-1)
[2018-12-31 11:24] LABS: Bacteria RARE /HPF (NEGATIVE); Epithelial Cells RARE /HPF (FEW)
[2018-12-31 11:31] LABS: Amphetamine,Urine NEGATIVE (NEGATIVE); Barbiturate,Urine NEGATIVE (NEGATIVE); Benzodiazepine,Urine NEGATIVE (NEGATIVE); Cocaine,Urine NEGATIVE (NEGATIVE); Methadone,Urine NEGATIVE (NEGATIVE); Opiate,Urine NEGATIVE (NEGATIVE); PCP,Urine NEGATIVE (NEGATIVE); THC,Urine POSITIVE (NEGATIVE)
[2018-12-31] MEDS ORDERED: Catapres 0.1 MG PO ONE (11:46)
[2018-12-31] MEDS ORDERED: Zofran 4 MG/2 ML VIAL IV ONE (11:46)
[2018-12-31] MEDS ORDERED: Zofran 4 MG/2 ML VIAL ONE (11:50)
[2018-12-31] MEDS ORDERED: Catapres 0.1 MG ONE (11:50)
[2018-12-31] MEDS ORDERED: PROTONIX 40 MG IV IV ONE ×2 (13:07→13:13)
--- NOTE | 2018-12-31 13:30 | XRAY ---
Indication: Abdomen pain, nausea, vomiting, and heartburn 5 years. Multiple contiguous axial images obtained through the abdomen and pelvis using 80 cc Isovue 370 contrast only. Comparison: July 30, 2018 and November 18, 2018. Lung bases remain clear. Heart is not enlarged. Stable small hiatal hernia with now small fluid in the distal esophagus presumed from gastroesophageal reflux. Stomach mildly fluid distended. Noncontrasted stomach and bowel loops again nonobstructed. Normal retrocecal appendix. No free fluid/air. Stable calcified splenic granulomas. Remaining liver, gallbladder, pancreas, spleen, adrenal glands, kidneys, ureters, bladder, uterus, and aorta appear unremarkable. No pathologic retroperitoneal lymphadenopathy. Osseous structures intact. No ventral or inguinal hernias. Impression: 1. Stable small hiatal hernia with now evidence for gastroesophageal reflux. 2. Stable calcified splenic granulomas. 3. Remaining CT abdomen/pelvis with contrast exam is negative. CT DI 18.86
[2018-12-31] MEDS ORDERED: APRESOLINE 20 MG/ML INJ IV ONE (13:47)
[2018-12-31] MEDS ORDERED: APRESOLINE 20 MG/ML INJ ONE (13:50)
[2018-12-31] MEDS ORDERED: Ativan 2 MG/1 ML VIAL IV ONE (14:09)
[2018-12-31] MEDS ORDERED: Ativan 2 MG/1 ML VIAL ONE (14:12)
[2018-12-31] MEDS ORDERED: Phenergan 25 MG INJ IM PRN (14:30)
[2018-12-31] MEDS ORDERED: NovoLOG Insulin SQ PRN (14:30)
[2018-12-31] MEDS: APRESOLINE 20 MG/ML INJ IV PRN ×2 (15:14→19:28)
[2018-12-31] MEDS: SODIUM CHLORIDE 0.45% W/ 20 mEq KCL 1,000 ML IV SCH (15:14)
[2018-12-31] MEDS: DILAUDID 2 MG INJECTION IV PRN ×2 (15:25→19:55)
[2018-12-31] MEDS: Zofran 4 MG/2 ML VIAL IV PRN ×2 (15:25→21:54)
[2018-12-31] MEDS ORDERED: Phenergan 25 MG INJ IV PRN (16:47)
[2018-12-31] MEDS ORDERED: ALPRAZOLAM 1 MG PO PRN (16:55)
[2018-12-31] MEDS ORDERED: XANAX 1 MG PO PRN (17:00)
[2018-12-31] MEDS ORDERED: MEDICATION INTERVENTION MC SCH (17:15)
[2018-12-31] MEDS ORDERED: MEDICATION INTERVENTION PO SCH (17:15)
[2018-12-31] MEDS: Catapres 0.1 MG PO SCH ×2 (17:19→21:57)
[2018-12-31] MEDS: Maxzide-25MG Tablet PO SCH (17:19)
[2018-12-31] MEDS: NEURONTIN 300 MG PO SCH ×2 (17:20→21:57)
[2018-12-31] MEDS ORDERED: DULAGLUTIDE SQ SCH (18:00)
[2018-12-31 18:44] LABS: INFLUENZA A NEGATIVE (NEGATIVE); INFLUENZA B NEGATIVE (NEGATIVE); RESPIRATORY SYNCTIAL VIRUS NEGATIVE (Negative)
[2018-12-31] MEDS: Toprol Xl 100 MG PO SCH (21:57)
[2018-12-31] MEDS ORDERED: Prozac 20 MG PO SCH (22:00)
[2018-12-31] MEDS ORDERED: zyPREXA 5MG TABLET PO SCH (22:00)
[2018-12-31] MEDS ORDERED: NON-FORMULARY ITEM (Fluoxetine Hcl [Prozac] 40 MG) PO SCH (22:00)
[2018-12-31] MEDS ORDERED: ATARAX 25 MG PO SCH (22:00)
[2019-01-01] MEDS ORDERED: TYLENOL 325 MG PO PRN (00:49)
[2019-01-01] MEDS: SODIUM CHLORIDE 0.45% W/ 20 mEq KCL 1,000 ML IV SCH (00:55)
[2019-01-01] MEDS: DILAUDID 2 MG INJECTION IV PRN (03:28)
[2019-01-01 06:09] LABS: BASOPHIL % 0.1 % (0.0-0.4); Basophil (Absolute #) 0.02 (0-0.4); Eosinophil % 0.1 % (0.00-5.0); Eosinophil (Absolute #) 0.01 (0-0.5); Granulocyte Absolute (ANC) 12.57 (1.4-6.9); Granulocytes % 74.8 % (36.0-66.0); Hematocrit 37.4 % (35-47); Hemoglobin 12.4 gm/dl (12.0-16.0); Lymphocyte (Absolute #) 3.03 (1.0-4.6); Mean Cell Volume 89.5 fl (78-100); Mean Corpuscular Hemoglobin 29.7 pg (26-32); Mean Corpuscular Hgb Concent. 33.2 g/dl (32-36); Mean Platelet Volume 10.8 fl (6-9.5); Monocyte (Absolute #) 1.18 (0.0-1.3); Platelet Count 322 K/mm3 (150-450); Red Blood Count 4.18 M/mm3 (4.1-5.4); Red Cell Distribution Width 15.3 % (11.5-14.0); White Blood Count 16.8 K/mm3 (4.0-10.5)
[2019-01-01 06:24] LABS: ALBUMIN 4.3 g/dL (3.5-5.0); ALKALINE PHOSPHATASE 107 U/L (38-126); ANION GAP 15.4 MEQ/L (5-15); BLOOD UREA NITROGEN 15 mg/dL (7-17); CHLORIDE 102 mmol/L (98-107); Calcium 9.2 mg/dL (8.4-10.2); Carbon Dioxide 25 mmol/L (22-30); Glucose 124 mg/dL (74-106); LIPASE 283 U/L (23-300); Potassium 3.6 mmol/L (3.5-5.1); SGOT/AST 17 U/L (14-36); SGPT/ALT 22 U/L (0-35); SODIUM 138 mmol/L (137-145); Total Protein 7.3 g/dL (6.3-8.2)
--- NOTE | 2019-01-01 07:42 | HP ---
CHIEF COMPLAINT: Abdominal pain, vomiting. HISTORY OF PRESENT ILLNESS: The patient is a 48 year-old white female who began feeling ill last evening. She was having fairly significant abdominal pain and presented to the emergency room and was admitted to hospital for IV fluid, gut rest and rehydration. PAST MEDICAL HISTORY: Significant for anxiety, diabetes mellitus type 2, depression, anxiety and hypertension. PAST SURGICAL HISTORY: Tubal ligation. Lumpectomy. PHYSICAL EXAMINATION: Revealed a well-nourished, well-developed 48 year-old white female in mild distress due to abdominal pain and nausea. Her vital signs temperature 97.4F, pulse 91, respiratory rate 20 and blood pressure 191/117 initially. HEENT: Normocephalic, atraumatic. Pupils equal round reactive to light. Extraocular movements intact. Oropharynx is pink and moist. NECK: Supple without lymphadenopathy, thyromegaly or JVD. CHEST: Clear to auscultation with good air movement bilaterally. HEART: Regular rate and rhythm without murmurs, rubs or gallops. ABDOMEN: Soft, nontender, nondistended without hepatosplenomegaly or palpable masses. EXTREMITIES: Without cyanosis, clubbing or edema. NEUROLOGIC: The patient is alert and oriented x3. No focal deficits noted. LAB DATA AND TESTS: Showed a sugar of 200, BUN 22, creatinine 0.67. Electrolytes were normal. Liver enzymes were normal. CBC showed a white blood cell count 17,100, hemoglobin 14.8, PLT count of 378,000 with what appeared to be somewhat of a left shift with 8.4% granulocytes. HCG negative. UA was essentially normal. Urine drug screen was positive for THC. CT scan abdomen and pelvis showed a small hiatal hernia otherwise negative exam. ASSESSMENT: A patient with gastroenteritis with belly pain, reflux and mild dehydration. She has been admitted for IV fluid hydration, IV Protonix, IV Zofran and/or Phenergan for nausea and clear liquid diet. We will recheck labs in the morning, get gallbladder ultrasound if she does not improve overnight.
[2019-01-01 09:29] VITALS: O2SAT 96
[2019-01-01] MEDS: NEURONTIN 300 MG PO SCH (09:31)
[2019-01-01] MEDS: Toprol Xl 100 MG PO SCH (09:32)
[2019-01-01] MEDS: Catapres 0.1 MG PO SCH (09:32)
[2019-01-01] MEDS: Maxzide-25MG Tablet PO SCH (09:33)
[2019-01-01] MEDS ORDERED: NON-FORMULARY ITEM (Omeprazole [Prilosec] 20 MG) PO SCH (10:00)
[2019-01-01] MEDS ORDERED: ESTROGEN CON PO SCH (10:00)
[2019-01-01] MEDS ORDERED: PROTONIX 40 MG IV IV SCH (10:00)
[2019-01-01] MEDS ORDERED: M PROGEST ACET PO SCH (10:00)
[2019-01-01] MEDS ORDERED: Protonix 40MG Tablet PO SCH (10:00)
[2019-01-01 11:31] VITALS: BP 95/52; PULSE 86
== END 2019-01-01 11:25 | disposition home or self-care (01) ==
LOC: ED 10:10 → MED SURG 14:29
PROVIDERS: ADMIT Family Medicine; ATTEND Family Medicine
DX: K52.9 Noninfective gastroenteritis and colitis, unspecified (principal); E86.0 Dehydration; R10.9 Unspecified abdominal pain; K21.9 Gastro-esophageal reflux disease without esophagitis; R11.2 Nausea with vomiting, unspecified; E11.9 Type 2 diabetes mellitus without complications; I10 Essential (primary) hypertension; K44.9 Diaphragmatic hernia without obstruction or gangrene; Z79.899 Other long term (current) drug therapy
CPT/HCPCS: 36000; 36415; 74177; 80053; 80307; 81001; 81025; 82150; 82962; 83690; 85025; 87631; 93005; 93268; 94762; 96360; 96361; 96372; 96374; 96375; 96376; 99285; G0378; J0360; J1170; J2060; J2405; J2550; A9270-GY

== ENCOUNTER 2020-02-20 14:05 | Observation (INO) | payer OTHER ==
[2020-02-20] MEDS ORDERED: Pepcid 20 MG VIAL IV ONE ×2 (14:30→15:10)
[2020-02-20] MEDS ORDERED: Zofran 4 MG/2 ML VIAL IV ONE (14:30)
[2020-02-20] MEDS ORDERED: Sodium Chloride 0.9% 1000 ML 1,000 ML IV STA (14:30)
[2020-02-20] MEDS ORDERED: MORPHINE SULFATE 4 MG INJ IV ONE ×2 (14:30→19:09)
--- NOTE | 2020-02-20 14:35 | ERPHSYRPT ---
- History of Present Illness Time Seen by Provider: 02/20/20 14:22 Historian: patient Exam Limitations: no limitations Patient Subjective Stated Complaint: . Triage Nursing Assessment: . Physician History: 49 years old female presented in the ER with chief complaint of off-and-on vomiting with some upper abdominal pain for the last 2 to 3 days and got worse this morning with constant pain in the epigastric area, moderate to severe intensity, dull aching sharp burning nature without any significant aggravating or relieving factors, associated with 3 episodes of nonprojectile, nonbilious vomiting today. Denies any hematemesis. Patient does have history of esophagitis in the past and is currently taking PPIs. Denies any diarrhea, fever or chills. No chest pain palpitations or shortness of breath reported otherwise. Timing/Duration: day(s) (3) Activities at Onset: rest Quality: burning, sharpness Abdominal Pain Onset Location: RUQ, epigastric Pain Radiation: no radiation Severity of Pain-Max: moderate Severity of Pain-Current: moderate Modifying Factors: Improves With: nothing Associated Symptoms: nausea, vomiting Previous symptoms: no prior history Allergies/Adverse Reactions: NKA Allergy (Mild, Verified 02/20/20 14:18) Home Medications: Alprazolam [Xanax] 1 mg PO TIDPRN PRN 08/23/15 [History] Dulaglutide [Trulicity] 1.5 ml SQ 1800 08/15/18 [History] Gabapentin 800 mg PO TID 08/15/18 [History] OLANZapine [Olanzapine] 15 mg PO HS 08/15/18 [History] Fluoxetine HCl [Prozac] 40 mg PO HS 11/18/18 [History] Clonidine HCl 0.2 mg PO DAILY 02/20/20 [History] Metformin HCl 500 mg [Glucophage 500 MG] 500 mg PO BIDWM 02/20/20 [History ] Hx Tetanus, Diphtheria Vaccination/Date Given: Yes Hx Influenza Vaccination/Date Given: Yes Hx Pneumococcal Vaccination/Date Given: Yes Immunizations Up to Date: Yes Travel Risk - International Travel Have you traveled outside of the country in past 3 weeks: No Have you or anyone close to you been diagnosed with or: No Do your reside in a community with a known COVID-19 case?: Yes If Yes where:: [facility] - Coronavirus Screening Has patient experienced Coronavirus symptoms: No - Review of Systems Constitutional: Fatigue Eyes: No Symptoms Ears, Nose, & Throat: No Symptoms Respiratory: No Symptoms Cardiac: No Symptoms Abdominal/Gastrointestinal: Abdominal Pain, Nausea, Vomiting Genitourinary Symptoms: No Symptoms Musculoskeletal: No Symptoms Skin: No Symptoms Neurological: No Symptoms Psychological: No Symptoms Endocrine: No Symptoms Hematologic/Lymphatic: No Symptoms Immunological/Allergic: No Symptoms - Past Medical History Pertinent Past Medical History: Yes Neurological History: Migraines ENT History: No Pertinent History Cardiac History: No Pertinent History Respiratory History: Pneumonia Endocrine Medical History: Diabetes Type II Musculoskeletal History: No Pertinent History GI Medical History: GERD, Other History: No Pertinent History Psycho-Social History: Anxiety, Bipolar, Depression Female Reproductive Disorders: No Pertinent History Other Medical History: Gastroenteritis , chronic back pain - Past Surgical History Past Surgical History: Yes Neuro Surgical History: No Pertinent History Cardiac: No Pertinent History Respiratory: No Pertinent History Gastrointestinal: No Pertinent History Genitourinary: No Pertinent History Musculoskeletal: No Pertinent History Female Surgical History: Lumpectomy, Tubal Ligation - Social History Smoking Status: Current every day smoker How long have you smoked: 27 YEARS Exposure to second hand smoke: No Drug Use: marijuana Patient Lives Alone: No - Female History Hx Last Menstrual Period: 01/21/20 Hx Now: No (STATES MENOPAUSE) - Nursing Vital Signs Nursing Vital Signs: Initial Vital Signs Temperature 98.2 F 02/20/20 14:12 Pulse Rate 120 H 02/20/20 14:12 Respiratory Rate 24 02/20/20 14:12 Blood Pressure 199/139 02/20/20 14:12 O2 Sat by Pulse Oximetry 99 02/20/20 14:12 Pain Scale Pain Intensity 9 - Physical Exam General Appearance: no apparent distress Eye Exam: PERRL/EOMI, eyes nml inspection Ears, Nose, Throat Exam: normal ENT inspection, TMs normal, pharynx normal Neck Exam: normal inspection, non-tender, supple, full range of motion Respiratory Exam: normal breath sounds, lungs clear Cardiovascular Exam: regular rate/rhythm, normal heart sounds Gastrointestinal/Abdomen Exam: soft, tenderness (Gastric/right upper quadrant), guarding Back Exam: normal inspection, normal range of motion, No CVA tenderness Extremity Exam: normal inspection, normal range of motion Neurologic Exam: alert, oriented x 3, cooperative Skin Exam: normal color, warm SpO2 Interpretation: normal SpO2: 99 O2 Delivery: Room Air Ordered Tests: Active Orders 24 hr Category Date Time Status Bedrest with BRP/BSC ROUTINE Activity 02/20/20 19:54 Active Up With Assistance ROUTINE Activity 02/20/20 19:54 Active Code Status Order ROUTINE Care 02/20/20 19:54 Active IV Care Q6H Care 02/20/20 19:54 Active NPO (ED) STAT Care 02/20/20 14:[address] in Observation ROUTINE Care 02/20/20 19:54 Active NPO Diet 02/21/20 11:00 Active ABDOMEN AND PELVIS W CONTRAST [CT] Stat Exams 02/20/20 14:30 Completed GALLBLADDER [US] Stat Exams 02/20/20 18:00 Taken AMYLASE Stat Lab 02/20/20 15:00 Completed CBC W DIFF AM.LAB Lab 02/21/20 04:00 Ordered CBC W DIFF Stat Lab 02/20/20 15:00 Completed CMP AM.LAB Lab 02/21/20 04:00 Ordered CMP Stat Lab 02/20/20 15:00 Completed HCG QUALITATIVE,SERUM Stat Lab 02/20/20 15:00 Completed HCG, Quantitative (Inhouse) Stat Lab 02/20/20 Completed HCG,QUALITATIVE URINE Stat Lab 02/20/20 17:13 Completed LIPASE Stat Lab 02/20/20 15:00 Completed TROPONIN Q3H Lab 02/20/20 15:00 Completed TROPONIN Q3H Lab 02/20/20 17:45 Completed TROPONIN Q3H Lab 02/20/20 20:40 Completed TROPONIN Q3H Lab 02/20/20 23:30 Ordered TROPONIN Q3H Lab 02/21/20 02:30 Ordered UA W/RFX UR CULTURE Stat Lab 02/20/20 16:30 Completed Transfer Order Routine Transfer 02/20/20 Completed Medication Summary Generic Name Dose Route Start Last Admin Trade Name Freq PRN Reason Stop Dose Admin Clonidine 0.2 mg 02/20/20 22:00 02/20/20 21:53 Catapres 0.1 Mg PO 03/21/20 21:59 0.2 mg DAILY SANDIE Administration Famotidine 20 mg 02/20/20 22:00 02/20/20 21:52 Pepcid 20 Mg Vial IV 03/21/20 21:59 20 mg Q12HT SANDIE Administration Fluoxetine HCl 40 mg 02/20/20 22:00 02/20/20 21:52 Prozac 20 Mg PO 03/21/20 21:59 40 mg HS SANDIE Administration Gabapentin 800 mg 02/20/20 22:00 02/20/20 21:53 Neurontin 400 Mg PO 03/21/20 21:59 800 mg TID SANDIE Administration Potassium Chloride/Sodium Chloride 1,000 mls @ 125 mls/hr 02/20/20 19:54 Sodium Chloride 0.9% W/ 20 Meq Kcl/Liter IV 03/21/20 19:53 .Q8H SANDIE Insulin Human Lispro 0 unit 02/20/20 19:54 02/20/20 21:50 Humalog SQ 03/21/20 19:53 2 unit UD PRN Administration HYPERGLYCEMIA Morphine Sulfate 4 mg 02/20/20 19:54 02/20/20 22:43 Morphine Sulfate 4 Mg Inj IV 02/25/20 19:53 4 mg Q4H PRN PRN Administration PAIN Olanzapine 15 mg 02/20/20 22:00 02/20/20 21:53 Zyprexa 5mg Tablet PO 03/21/20 21:59 15 mg HS SANDIE Administration Ondansetron HCl 4 mg 02/20/20 19:54 02/20/20 22:43 Zofran 4 Mg/2 Ml Vial IV 03/21/20 19:53 4 mg Q6H PRN PRN Administration NAUSEA/VOMITING Discontinued Medications Generic Name Dose Route Start Last Admin Trade Name Freq PRN Reason Stop Dose Admin Famotidine 20 mg 02/20/20 14:30 02/20/20 15:14 Pepcid 20 Mg Vial IV 02/20/20 14:31 20 mg STAT ONE Administration Famotidine Confirm 02/20/20 15:10 Pepcid 20 Mg Vial Administered 02/20/20 15:11 Dose 20 mg IV .STK-MED ONE Hydromorphone HCl 0.5 mg 02/20/20 18:49 02/20/20 19:20 Hydromorphone 1 Mg/Ml Ampule IV 02/20/20 18:50 0.5 mg STAT ONE Administration Hydromorphone HCl Confirm 02/20/20 19:14 Hydromorphone 1 Mg/Ml Ampule Administered 02/20/20 19:15 Dose 1 mg .ROUTE .STK-MED ONE Sodium Chloride 1,000 mls @ 999 mls/hr 02/20/20 14:30 02/20/20 16:39 Sodium Chloride 0.9% 1000 Ml IV 02/20/20 15:30 Infused .Q1H1M STA Infusion Sodium Chloride Confirm 02/20/20 15:10 Sodium Chloride 0.9% 1000 Ml Administered 02/20/20 15:11 Dose 1,000 mls @ ud .ROUTE .STK-MED ONE Sodium Chloride Confirm 02/20/20 17:05 Sodium Chloride 0.9% 50 Ml Administered 02/20/20 17:06 Dose 50 mls @ ud IV .STK-MED ONE Sodium Chloride 1,000 mls @ 125 mls/hr 02/20/20 19:00 02/20/20 19:36 Sodium Chloride 0.9% 1000 Ml IV 03/21/20 18:59 125 mls/hr .Q8H SANDIE Administration Sodium Chloride Confirm 02/20/20 19:33 Sodium Chloride 0.9% 1000 Ml Administered 02/20/20 19:34 Dose 1,000 mls @ ud .ROUTE .STK-MED ONE Labetalol HCl 10 mg 02/20/20 18:49 02/20/20 19:20 Trandate 20 Mg/5 Ml Syringe IV 02/20/20 18:50 10 mg STAT ONE Administration Labetalol HCl Confirm 02/20/20 19:13 Trandate 20 Mg/5 Ml Syringe Administered 02/20/20 19:14 Dose 20 mg IV .STK-MED ONE Morphine Sulfate 4 mg 02/20/20 14:30 02/20/20 15:14 Morphine Sulfate 4 Mg Inj IV 02/20/20 14:31 4 mg STAT ONE Administration Morphine Sulfate Confirm 02/20/20 15:10 Morphine Sulfate 4 Mg Inj Administered 02/20/20 15:11 Dose 4 mg .ROUTE .STK-MED ONE Morphine Sulfate Confirm 02/20/20 18:33 Morphine Sulfate 4 Mg Inj Administered 02/20/20 18:34 Dose 4 mg .ROUTE .STK-MED ONE Morphine Sulfate 4 mg 02/20/20 19:09 02/20/20 18:34 Morphine Sulfate 4 Mg Inj IV 02/20/20 19:10 4 mg STAT ONE Administration Ondansetron HCl 4 mg 02/20/20 14:30 02/20/20 15:14 Zofran 4 Mg/2 Ml Vial IV 02/20/20 14:31 4 mg STAT ONE Administration Ondansetron HCl Confirm 02/20/20 15:10 Zofran 4 Mg/2 Ml Vial Administered 02/20/20 15:11 Dose 4 mg .ROUTE .STK-MED ONE Promethazine HCl 25 mg 02/20/20 17:00 02/20/20 17:15 Phenergan 25 Mg Inj IV 02/20/20 17:01 25 mg STAT ONE Administration Promethazine HCl Confirm 02/20/20 17:05 Phenergan 25 Mg Inj Administered 02/20/20 17:06 Dose 25 mg .ROUTE .STK-MED ONE Lab/Rad Data: Laboratory Result Diagrams 02/20/20 15:00 02/20/20 15:00 Laboratory Results 02/20/20 02/20/20 02/20/20 Range/Units 17:45 17:13 16:30 WBC (4.0-10.5) K/mm3 RBC (4.1-5.4) M/mm3 Hgb (12.0-16.0) gm/dl Hct (35-47) % MCV (78-100) fl MCH (26-32) pg MCHC (32-36) g/dl RDW (11.5-14.0) % Plt Count (150-450) K/mm3 MPV (7.5-11.0) fl Gran % (36.0-66.0) % Eos # (Auto) (0-0.5) Absolute Lymphs (auto) (1.0-4.6) Absolute Monos (auto) (0.0-1.3) Lymphocytes % (24.0-44.0) % Monocytes % (0.0-12.0) % Eosinophils % (0.00-5.0) % Basophils % (0.0-0.4) % Absolute Granulocytes (1.4-6.9) Basophils # (0-0.4) Sodium (137-145) mmol/L Potassium (3.5-5.1) mmol/L Chloride (98-107) mmol/L Carbon Dioxide (22-30) mmol/L Anion Gap (5-15) MEQ/L BUN (7-17) mg/dL Creatinine (0.52-1.04) mg/dL Estimated GFR ML/MIN Glucose (74-106) mg/dL Calcium (8.4-10.2) mg/dL Total Bilirubin (0.2-1.3) mg/dL AST (14-36) U/L ALT (0-35) U/L Alkaline Phosphatase (38-126) U/L Troponin I < 0.012 (0.000-0.034) ng/mL Serum Total Protein (6.3-8.2) g/dL Albumin (3.5-5.0) g/dL Amylase (30-110) U/L Lipase (23-300) U/L Serum , Qual (Negative) Urine Color YELLOW (YELLOW) Urine Appearance CLOUDY (CLEAR) Urine pH 9.0 (5-6) Ur Specific Sebastian 1.017 (1.005-1.025) Urine Protein 30 (Negative) Urine Ketones TRACE (NEGATIVE) Urine Blood NEGATIVE (0-5) Junito/ul Urine Nitrite NEGATIVE (NEGATIVE) Urine Bilirubin NEGATIVE (NEGATIVE) Urine Urobilinogen NEGATIVE (0-1) mg/dL Ur Leukocyte Esterase NEGATIVE (NEGATIVE) Urine WBC (Auto) 0-2 (0-5) /HPF Urine RBC (Auto) 3-5 (0-2) /HPF U Epithel Cells (Auto) RARE (FEW) /HPF Urine Bacteria (Auto) RARE (NEGATIVE) /HPF Amorphous Crystals FEW (NEGATIVE) /HPF Urine Culture Reflexed NO (NO) Urine Glucose 150 (NEGATIVE) mg/dL Urine HCG, Qual NEGATIVE (Negative) 02/20/20 02/20/20 02/20/20 Range/Units 15:00 15:00 15:00 WBC 13.6 H (4.0-10.5) K/mm3 RBC 4.57 (4.1-5.4) M/mm3 Hgb 14.3 (12.0-16.0) gm/dl Hct 42.2 (35-47) % MCV 92.3 (78-100) fl MCH 31.3 (26-32) pg MCHC 33.9 (32-36) g/dl RDW 12.9 (11.5-14.0) % Plt Count 321 (150-450) K/mm3 MPV 10.9 (7.5-11.0) fl Gran % 78.9 H (36.0-66.0) % Eos # (Auto) 0.03 (0-0.5) Absolute Lymphs (auto) 2.28 (1.0-4.6) Absolute Monos (auto) 0.55 (0.0-1.3) Lymphocytes % 16.7 L (24.0-44.0) % Monocytes % 4.0 (0.0-12.0) % Eosinophils % 0.2 (0.00-5.0) % Basophils % 0.2 (0.0-0.4) % Absolute Granulocytes 10.75 H (1.4-6.9) Basophils # 0.03 (0-0.4) Sodium 142 (137-145) mmol/L Potassium 3.9 (3.5-5.1) mmol/L Chloride 101 (98-107) mmol/L Carbon Dioxide 28 (22-30) mmol/L Anion Gap 18.0 H (5-15) MEQ/L BUN 18 H (7-17) mg/dL Creatinine 0.66 (0.52-1.04) mg/dL Estimated GFR > 60.0 ML/MIN Glucose 191 H (74-106) mg/dL Calcium 10.5 H (8.4-10.2) mg/dL Total Bilirubin 0.40 (0.2-1.3) mg/dL AST 28 (14-36) U/L ALT 32 (0-35) U/L Alkaline Phosphatase 144 H (38-126) U/L Troponin I (0.000-0.034) ng/mL Serum Total Protein 8.6 H (6.3-8.2) g/dL Albumin 4.9 (3.5-5.0) g/dL Amylase 70 (30-110) U/L Lipase 133 (23-300) U/L Serum , Qual POSITIVE (Negative) Urine Color (YELLOW) Urine Appearance (CLEAR) Urine pH (5-6) Ur Specific Sebastian (1.005-1.025) Urine Protein (Negative) Urine Ketones (NEGATIVE) Urine Blood (0-5) Junito/ul Urine Nitrite (NEGATIVE) Urine Bilirubin (NEGATIVE) Urine Urobilinogen (0-1) mg/dL Ur Leukocyte Esterase (NEGATIVE) Urine WBC (Auto) (0-5) /HPF Urine RBC (Auto) (0-2) /HPF U Epithel Cells (Auto) (FEW) /HPF Urine Bacteria (Auto) (NEGATIVE) /HPF Amorphous Crystals (NEGATIVE) /HPF Urine Culture Reflexed (NO) Urine Glucose (NEGATIVE) mg/dL Urine HCG, Qual (Negative) 02/20/20 Range/Units 15:00 WBC (4.0-10.5) K/mm3 RBC (4.1-5.4) M/mm3 Hgb (12.0-16.0) gm/dl Hct (35-47) % MCV (78-100) fl MCH (26-32) pg MCHC (32-36) g/dl RDW (11.5-14.0) % Plt Count (150-450) K/mm3 MPV (7.5-11.0) fl Gran % (36.0-66.0) % Eos # (Auto) (0-0.5) Absolute Lymphs (auto) (1.0-4.6) Absolute Monos (auto) (0.0-1.3) Lymphocytes % (24.0-44.0) % Monocytes % (0.0-12.0) % Eosinophils % (0.00-5.0) % Basophils % (0.0-0.4) % Absolute Granulocytes (1.4-6.9) Basophils # (0-0.4) Sodium (137-145) mmol/L Potassium (3.5-5.1) mmol/L Chloride (98-107) mmol/L Carbon Dioxide (22-30) mmol/L Anion Gap (5-15) MEQ/L BUN (7-17) mg/dL Creatinine (0.52-1.04) mg/dL Estimated GFR ML/MIN Glucose (74-106) mg/dL Calcium (8.4-10.2) mg/dL Total Bilirubin (0.2-1.3) mg/dL AST (14-36) U/L ALT (0-35) U/L Alkaline Phosphatase (38-126) U/L Troponin I < 0.012 (0.000-0.034) ng/mL Serum Total Protein (6.3-8.2) g/dL Albumin (3.5-5.0) g/dL Amylase (30-110) U/L Lipase (23-300) U/L Serum , Qual (Negative) Urine Color (YELLOW) Urine Appearance (CLEAR) Urine pH (5-6) Ur Specific Sebastian (1.005-1.025) Urine Protein (Negative) Urine Ketones (NEGATIVE) Urine Blood (0-5) Junito/ul Urine Nitrite (NEGATIVE) Urine Bilirubin (NEGATIVE) Urine Urobilinogen (0-1) mg/dL Ur Leukocyte Esterase (NEGATIVE) Urine WBC (Auto) (0-5) /HPF Urine RBC (Auto) (0-2) /HPF U Epithel Cells (Auto) (FEW) /HPF Urine Bacteria (Auto) (NEGATIVE) /HPF Amorphous Crystals (NEGATIVE) /HPF Urine Culture Reflexed (NO) Urine Glucose (NEGATIVE) mg/dL Urine HCG, Qual (Negative) - Progress Progress: pain not gone completely, re-examined Progress Note: 02/20/20 9 years old is evaluated for upper abdominal pain and vomiting. Patient is given IV fluid and antiemetic, multiple doses but still having pain and vomiting. Acute abdomen work-up is grossly negative for any obvious reason including CT and right upper quadrant ultrasound. This could be gastritis. Patient is being admitted for observation for IV fluid and antiemetics along with pain medication. Discussed with Dr. Mckeon and patient is accepted for admission. Discussed with : Shyla Will see patient in: hospital (observation) Counseled pt/family regarding: lab results, diagnosis, rad results - Departure Departure Disposition: Observation Clinical Impression: Intractable nausea and vomiting, Epigastric abdominal pain, Uncontrolled hypertension Condition: Stable Critical Care Time: No
[2020-02-20] MEDS ORDERED: Sodium Chloride 0.9% 1000 ML 1,000 ML ONE ×2 (15:10→19:33)
[2020-02-20] MEDS ORDERED: Zofran 4 MG/2 ML VIAL ONE (15:10)
[2020-02-20] MEDS ORDERED: MORPHINE SULFATE 4 MG INJ ONE ×2 (15:10→18:33)
[2020-02-20 15:37] LABS: Absolute Neutrophil Ct (ANC) 10.75 (1.4-6.9); BASOPHIL % 0.2 % (0.0-0.4); Basophil (Absolute #) 0.03 (0-0.4); Eosinophil % 0.2 % (0.00-5.0); Eosinophil (Absolute #) 0.03 (0-0.5); Hematocrit 42.2 % (35-47); Hemoglobin 14.3 gm/dl (12.0-16.0); Lymphocyte (Absolute #) 2.28 (1.0-4.6); Lymphocytes % 16.7 % (24.0-44.0); Mean Cell Volume 92.3 fl (78-100); Mean Corpuscular Hemoglobin 31.3 pg (26-32); Mean Corpuscular Hgb Concent. 33.9 g/dl (32-36); Mean Platelet Volume 10.9 fl (7.5-11.0); Monocyte (Absolute #) 0.55 (0.0-1.3); Neutrophil % 78.9 % (36.0-66.0); Platelet Count 321 K/mm3 (150-450); Red Blood Count 4.57 M/mm3 (4.1-5.4); Red Cell Distribution Width 12.9 % (11.5-14.0); White Blood Count 13.6 K/mm3 (4.0-10.5)
[2020-02-20 15:46] LABS: ALBUMIN 4.9 g/dL (3.5-5.0); ALKALINE PHOSPHATASE 144 U/L (38-126); AMYLASE 70 U/L (30-110); BLOOD UREA NITROGEN 18 mg/dL (7-17); CHLORIDE 101 mmol/L (98-107); Calcium 10.5 mg/dL (8.4-10.2); Carbon Dioxide 28 mmol/L (22-30); Creatinine 1 0.66 mg/dL (0.52-1.04); Glucose 191 mg/dL (74-106); LIPASE 133 U/L (23-300); Potassium 3.9 mmol/L (3.5-5.1); SGOT/AST 28 U/L (14-36); SODIUM 142 mmol/L (137-145); Total Protein 8.6 g/dL (6.3-8.2)
[2020-02-20 15:52] LABS: SGPT/ALT 32 U/L (0-35)
--- NOTE | 2020-02-20 16:24 | XRAY ---
Indication: Abdomen pain and vomiting. Multiple contiguous axial images obtained through the abdomen and pelvis using 80 cc Isovue-370 contrast only. Comparison: December 31, 2018. Lung bases remain clear. Heart is not enlarged. Noncontrasted stomach and bowel loops appear nonobstructed. Appendix not seen. No free fluid/air. Stable calcified splenic granulomas. The remaining liver, gallbladder, pancreas, spleen, adrenal glands, kidneys, ureters, bladder, uterus, and aorta appear unremarkable. No pathologic retroperitoneal lymphadenopathy. Osseous structures intact. No ventral or inguinal hernias. Impression: CT abdomen/pelvis with contrast exam is negative.
[2020-02-20 16:45] LABS: Amourphous Crystal FEW /HPF (NEGATIVE); Appearance CLOUDY (CLEAR); Bacteria RARE /HPF (NEGATIVE); Bilirubin NEGATIVE (NEGATIVE); Blood NEGATIVE Ery/ul (0-5); Epithelial Cells RARE /HPF (FEW); Glucose 150 mg/dL (NEGATIVE); Ketones TRACE (NEGATIVE); Leukocyte Esterase NEGATIVE (NEGATIVE); Nitrite NEGATIVE (NEGATIVE); Protein,Urine Dip 30 (Negative); Specific Gravity 1.017 (1.005-1.025); Urobilinogen NEGATIVE mg/dL (0-1); WBC 0-2 /HPF (0-5)
[2020-02-20] MEDS ORDERED: Phenergan 25 MG INJ IV ONE (17:00)
[2020-02-20] MEDS ORDERED: Phenergan 25 MG INJ ONE (17:05)
[2020-02-20] MEDS ORDERED: Hydromorphone 1 mg/ml Ampule IV ONE (18:49)
[2020-02-20] MEDS ORDERED: TRANDATE 20 MG/5 ML SYRINGE IV ONE ×2 (18:49→19:13)
[2020-02-20] MEDS ORDERED: Sodium Chloride 0.9% 1000 ML 1,000 ML IV SCH (19:00)
[2020-02-20] MEDS ORDERED: Hydromorphone 1 mg/ml Ampule ONE (19:14)
[2020-02-20] MEDS: HUMALOG SQ PRN (21:50)
[2020-02-20] MEDS: Pepcid 20 MG VIAL IV SCH (21:52)
[2020-02-20] MEDS: Prozac 20 MG PO SCH (21:52)
[2020-02-20] MEDS: zyPREXA 5MG TABLET PO SCH (21:53)
[2020-02-20] MEDS: Neurontin 400 MG PO SCH (21:53)
[2020-02-20] MEDS: Catapres 0.1 MG PO SCH (21:53)
[2020-02-20] MEDS: MORPHINE SULFATE 4 MG INJ IV PRN (22:43)
[2020-02-20] MEDS: Zofran 4 MG/2 ML VIAL IV PRN (22:43)
[2020-02-21] MEDS: Sodium Chloride 0.9% W/ 20 mEq KCl/LITER 1,000 ML IV SCH ×3 (03:30→19:27)
[2020-02-21 05:46] LABS: BASOPHIL % 0.2 % (0.0-0.4); Basophil (Absolute #) 0.02 (0-0.4); Eosinophil % 0.7 % (0.00-5.0); Eosinophil (Absolute #) 0.07 (0-0.5); Hematocrit 33.7 % (35-47); Hemoglobin 11.2 gm/dl (12.0-16.0); Lymphocyte (Absolute #) 4.53 (1.0-4.6); Lymphocytes % 43.5 % (24.0-44.0); Mean Cell Volume 94.1 fl (78-100); Mean Corpuscular Hemoglobin 31.3 pg (26-32); Mean Corpuscular Hgb Concent. 33.2 g/dl (32-36); Mean Platelet Volume 10.7 fl (7.5-11.0); Monocytes % 6.7 % (0.0-12.0); Neutrophil % 48.9 % (36.0-66.0); Platelet Count 246 K/mm3 (150-450); Red Blood Count 3.58 M/mm3 (4.1-5.4); Red Cell Distribution Width 12.9 % (11.5-14.0); White Blood Count 10.4 K/mm3 (4.0-10.5)
[2020-02-21 05:50] LABS: ALBUMIN 3.5 g/dL (3.5-5.0); ALKALINE PHOSPHATASE 96 U/L (38-126); ANION GAP 9.6 MEQ/L (5-15); BLOOD UREA NITROGEN 15 mg/dL (7-17); CHLORIDE 106 mmol/L (98-107); Calcium 8.4 mg/dL (8.4-10.2); Carbon Dioxide 27 mmol/L (22-30); Creatinine 1 0.61 mg/dL (0.52-1.04); Glucose 125 mg/dL (74-106); Potassium 3.6 mmol/L (3.5-5.1); SGOT/AST 20 U/L (14-36); SGPT/ALT 21 U/L (0-35); SODIUM 139 mmol/L (137-145); Total Protein 6.2 g/dL (6.3-8.2)
--- NOTE | 2020-02-21 08:57 | XRAY ---
Indication: Abdomen pain and vomiting. Cholecystitis. Two-dimensional gallbladder sonogram performed. Comparison: May 07, 2015. Gallbladder normally distended again without gallstones, wall thickening, or pericholecystic fluid. Common bile duct measures 2.7 mm. Remaining visualized portions of the liver, pancreas, and right kidney appear sonographically normal. Right kidney measures 11 cm in length. No ascites. Impression: Continued negative gallbladder sonogram. Comment: Preliminary report was given.
[2020-02-21] MEDS: Pepcid 20 MG VIAL IV SCH ×2 (09:13→21:09)
[2020-02-21] MEDS: Neurontin 400 MG PO SCH ×3 (09:13→21:10)
[2020-02-21] MEDS: Catapres 0.1 MG PO SCH (09:13)
[2020-02-21] MEDS ORDERED: ALPRAZOLAM 1 MG PO PRN (10:42)
[2020-02-21] MEDS ORDERED: MEDICATION INTERVENTION PO SCH (11:00)
[2020-02-21] MEDS: Protonix 40MG Tablet PO SCH (11:38)
[2020-02-21] MEDS: Toprol Xl 100 MG PO SCH ×2 (11:38→21:10)
[2020-02-21] MEDS: MORPHINE SULFATE 4 MG INJ IV PRN ×2 (11:42→21:09)
[2020-02-21] MEDS: XANAX 1 MG PO PRN ×2 (13:13→23:03)
[2020-02-21] MEDS: Maxzide-25MG Tablet PO SCH (13:13)
--- NOTE | 2020-02-21 13:17 | PCM.HP ---
History of Present Illness - Chief Complaint Chief Complaint: Intractable nausea/vomiting, HTN, abdominal pain Date: 02/21/20 History of Present Illness: is a 49 year old female seen this am following ER admission for intractable vomiting. Patient reports that she has had this before. She reports that after she eats she will develop nausea and will vomit food that she has eaten hours before. She denies any fevers or recent illness. She also denies any diarrhea with the vomiting. She reports she has been diagnosed with gastritis in the past and takes prilosec for her symptoms. She reports that she has had work up of her GB in the past year including US and HIDA scan which were neg. - Review of Systems Constitutional: No Fever, No Chills Eyes: No Symptoms Ears, Nose, & Throat: Tinnitus (Bilaterally) Respiratory: Short Of Breath, No Cough Cardiac: No Chest Pain, No Edema, No Syncope Abdominal/Gastrointestinal: Abdominal Pain, Nausea, Vomiting, No Diarrhea, No Constipation Genitourinary Symptoms: No Dysuria, No Frequency, No Hematuria Skin: No Rash Neurological: Parasthesia, No Headache Psychological: Anxiety, Depression, Other (Once a week marijuana use), No Alcohol Abuse, No Suicidal Ideations, No Homicidal Ideations Hematologic/Lymphatic: No Symptoms Medications & Allergies Home Medications: Home Medication List Omeprazole [Prilosec] 20 mg PO DAILY #30 capsule. 05/16/15 [Rx Confirmed 02/19] Alprazolam [Xanax] 1 mg PO TIDPRN PRN 08/23/15 [History Confirmed 02/20/20] Dulaglutide [Trulicity] 1.5 ml SQ 1800 08/15/18 [History Confirmed 02/20/20] Gabapentin 800 mg PO TID 08/15/18 [History Confirmed 02/20/20] OLANZapine [Olanzapine] 15 mg PO HS 08/15/18 [History Confirmed 02/20/20] Fluoxetine HCl [Prozac] 40 mg PO HS 11/18/18 [History Confirmed 02/20/20] Metoprolol Succinate 100 mg [Toprol Xl 100 MG] 100 mg PO BID #60 tablet [Rx Confirmed 02/20/20] Clonidine HCl 0.2 mg PO DAILY 02/20/20 [History Confirmed 02/20/20] Metformin HCl 500 mg [Glucophage 500 MG] 500 mg PO BIDWM 02/20/20 [ History Confirmed 02/20/20] Triamterene/Hydrochlorothiazid [Triamterene-Hctz 75-50 mg Tab] 1 tab PO DAILY [History Confirmed 02/21/20] Allergies/Adverse Reactions: Allergies Allergy/AdvReac Type Severity Reaction Status Date / Time NKA Allergy Mild Verified 02/20/20 14:18 - Past Medical History Past Medical History: Yes Neurological History: Migraines ENT History: No Pertinent History Cardiac History: No Pertinent History Respiratory History: Pneumonia Endocrine Medical History: Diabetes Type II Musculoskelatal History: No Pertinent History GI Medical History: GERD, Other History: No Pertinent History Pyscho-Social History: Anxiety, Bipolar, Depression Reproductive Disorders: No Pertinent History Comment: Gastroenteritis , chronic back pain - Female History Hx Last Menstrual Period: 01/21/20 Are you now?: No (STATES MENOPAUSE) - Past Surgical History Past Surgical History: Yes Neuro Surgical History: No Pertinent History Cardiac History: No Pertinent History Respiratory Surgery: No Pertinent History GI Surgical History: No Pertinent History Genitourinary Surgical Hx: No Pertinent History Musculskeletal Surgical Hx: No Pertinent History Female Surgical History: Lumpectomy, Tubal Ligation - Social History Smoking Status: Current every day smoker How long have you smoked: 27 YEARS Exposure to second hand smoke: No Alcohol: None Drug Use: marijuana - Physical Exam Vital Signs: Vital Signs - 24 hr Temp Pulse Resp BP Pulse Ox 02/21/20 11:20 98.5 F 74 14 130/87 96 02/21/20 07:21 98.1 F 75 16 131/88 97 02/21/20 04:00 98.6 F 74 18 107/58 95 02/21/20 00:00 98.6 F 86 16 122/68 96 02/20/20 23:00 99 02/20/20 20:10 98.8 F 83 16 156/77 97 02/20/20 18:08 108 H 18 97 02/20/20 16:41 111 H 18 99 02/20/20 15:15 117 H 201/147 98 02/20/20 14:12 98.2 F 120 H 24 199/139 99 General Appearance: mild distress, other (Patient was mildly anxious) Neurologic Exam: alert, oriented x 3, cooperative, 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, normal mood/affect Eye Exam: eyes nml inspection, No scleral icterus Ears, Nose, Throat Exam: moist mucous membranes Neck Exam: normal inspection Respiratory Exam: normal breath sounds, lungs clear, No respiratory distress, No diminished breath sounds, No crackles/rales, No rhonchi Cardiovascular Exam: regular rate/rhythm, normal heart sounds, No murmur, No friction rub, No gallop Gastrointestinal/Abdomen Exam: soft, normal bowel sounds, tenderness, distention , No mass, No guarding Pelvic Exam: not done Rectal Exam: not done Back Exam: normal inspection Extremity Exam: normal inspection Skin Exam: normal color, warm, dry, No rash Results - Labs Lab/Micro Results: Accuchecks Date 02/21/20 Time 11:45 Accucheck Value: 197 Accucheck Value: 202 Lab Results-Last 24 Hours 02/20/20 02/20/20 02/20/20 Range/Units 15:00 15:00 15:00 WBC 13.6 H (4.0-10.5) K/mm3 RBC 4.57 (4.1-5.4) M/mm3 Hgb 14.3 (12.0-16.0) gm/dl Hct 42.2 (35-47) % MCV 92.3 (78-100) fl MCH 31.3 (26-32) pg MCHC 33.9 (32-36) g/dl RDW 12.9 (11.5-14.0) % Plt Count 321 (150-450) K/mm3 MPV 10.9 (7.5-11.0) fl Gran % 78.9 H (36.0-66.0) % Eos # (Auto) 0.03 (0-0.5) Absolute Lymphs (auto) 2.28 (1.0-4.6) Absolute Monos (auto) 0.55 (0.0-1.3) Lymphocytes % 16.7 L (24.0-44.0) % Monocytes % 4.0 (0.0-12.0) % Eosinophils % 0.2 (0.00-5.0) % Basophils % 0.2 (0.0-0.4) % Absolute Granulocytes 10.75 H (1.4-6.9) Basophils # 0.03 (0-0.4) Sodium 142 (137-145) mmol/L Potassium 3.9 (3.5-5.1) mmol/L Chloride 101 (98-107) mmol/L Carbon Dioxide 28 (22-30) mmol/L Anion Gap 18.0 H (5-15) MEQ/L BUN 18 H (7-17) mg/dL Creatinine 0.66 (0.52-1.04) mg/dL Estimated GFR > 60.0 ML/MIN Glucose 191 H (74-106) mg/dL Calcium 10.5 H (8.4-10.2) mg/dL Total Bilirubin 0.40 (0.2-1.3) mg/dL AST 28 (14-36) U/L ALT 32 (0-35) U/L Alkaline Phosphatase 144 H (38-126) U/L Troponin I < 0.012 (0.000-0.034) ng/mL Serum Total Protein 8.6 H (6.3-8.2) g/dL Albumin 4.9 (3.5-5.0) g/dL Amylase 70 (30-110) U/L Lipase 133 (23-300) U/L Beta HCG, Quant mIU/ml Serum , Qual (Negative) Urine Color (YELLOW) Urine Appearance (CLEAR) Urine pH (5-6) Ur Specific [place] (1.005-1.025) Urine Protein (Negative) Urine Ketones (NEGATIVE) Urine Blood (0-5) Junito/ul Urine Nitrite (NEGATIVE) Urine Bilirubin (NEGATIVE) Urine Urobilinogen (0-1) mg/dL Ur Leukocyte Esterase (NEGATIVE) Urine WBC (Auto) (0-5) /HPF Urine RBC (Auto) (0-2) /HPF U Epithel Cells (Auto) (FEW) /HPF Urine Bacteria (Auto) (NEGATIVE) /HPF Amorphous Crystals (NEGATIVE) /HPF Urine Culture Reflexed (NO) Urine Glucose (NEGATIVE) mg/dL Urine HCG, Qual (Negative) 02/20/20 02/20/20 02/20/20 Range/Units 15:00 16:30 17:13 WBC (4.0-10.5) K/mm3 RBC (4.1-5.4) M/mm3 Hgb (12.0-16.0) gm/dl Hct (35-47) % MCV (78-100) fl MCH (26-32) pg MCHC (32-36) g/dl RDW (11.5-14.0) % Plt Count (150-450) K/mm3 MPV (7.5-11.0) fl Gran % (36.0-66.0) % Eos # (Auto) (0-0.5) Absolute Lymphs (auto) (1.0-4.6) Absolute Monos (auto) (0.0-1.3) Lymphocytes % (24.0-44.0) % Monocytes % (0.0-12.0) % Eosinophils % (0.00-5.0) % Basophils % (0.0-0.4) % Absolute Granulocytes (1.4-6.9) Basophils # (0-0.4) Sodium (137-145) mmol/L Potassium (3.5-5.1) mmol/L Chloride (98-107) mmol/L Carbon Dioxide (22-30) mmol/L Anion Gap (5-15) MEQ/L BUN (7-17) mg/dL Creatinine (0.52-1.04) mg/dL Estimated GFR ML/MIN Glucose (74-106) mg/dL Calcium (8.4-10.2) mg/dL Total Bilirubin (0.2-1.3) mg/dL AST (14-36) U/L ALT (0-35) U/L Alkaline Phosphatase (38-126) U/L Troponin I (0.000-0.034) ng/mL Serum Total Protein (6.3-8.2) g/dL Albumin (3.5-5.0) g/dL Amylase (30-110) U/L Lipase (23-300) U/L Beta HCG, Quant mIU/ml Serum , Qual POSITIVE (Negative) Urine Color YELLOW (YELLOW) Urine Appearance CLOUDY (CLEAR) Urine pH 9.0 (5-6) Ur Specific [place] 1.017 (1.005-1.025) Urine Protein 30 (Negative) Urine Ketones TRACE (NEGATIVE) Urine Blood NEGATIVE (0-5) Junito/ul Urine Nitrite NEGATIVE (NEGATIVE) Urine Bilirubin NEGATIVE (NEGATIVE) Urine Urobilinogen NEGATIVE (0-1) mg/dL Ur Leukocyte Esterase NEGATIVE (NEGATIVE) Urine WBC (Auto) 0-2 (0-5) /HPF Urine RBC (Auto) 3-5 (0-2) /HPF U Epithel Cells (Auto) RARE (FEW) /HPF Urine Bacteria (Auto) RARE (NEGATIVE) /HPF Amorphous Crystals FEW (NEGATIVE) /HPF Urine Culture Reflexed NO (NO) Urine Glucose 150 (NEGATIVE) mg/dL Urine HCG, Qual NEGATIVE (Negative) 02/20/20 02/20/20 02/20/20 Range/Units 17:45 20:40 23:40 WBC (4.0-10.5) K/mm3 RBC (4.1-5.4) M/mm3 Hgb (12.0-16.0) gm/dl Hct (35-47) % MCV (78-100) fl MCH (26-32) pg MCHC (32-36) g/dl RDW (11.5-14.0) % Plt Count (150-450) K/mm3 MPV (7.5-11.0) fl Gran % (36.0-66.0) % Eos # (Auto) (0-0.5) Absolute Lymphs (auto) (1.0-4.6) Absolute Monos (auto) (0.0-1.3) Lymphocytes % (24.0-44.0) % Monocytes % (0.0-12.0) % Eosinophils % (0.00-5.0) % Basophils % (0.0-0.4) % Absolute Granulocytes (1.4-6.9) Basophils # (0-0.4) Sodium (137-145) mmol/L Potassium (3.5-5.1) mmol/L Chloride (98-107) mmol/L Carbon Dioxide (22-30) mmol/L Anion Gap (5-15) MEQ/L BUN (7-17) mg/dL Creatinine (0.52-1.04) mg/dL Estimated GFR ML/MIN Glucose (74-106) mg/dL Calcium (8.4-10.2) mg/dL Total Bilirubin (0.2-1.3) mg/dL AST (14-36) U/L ALT (0-35) U/L Alkaline Phosphatase (38-126) U/L Troponin I < 0.012 < 0.012 < 0.012 (0.000-0.034) ng/mL Serum Total Protein (6.3-8.2) g/dL Albumin (3.5-5.0) g/dL Amylase (30-110) U/L Lipase (23-300) U/L Beta HCG, Quant mIU/ml Serum , Qual (Negative) Urine Color (YELLOW) Urine Appearance (CLEAR) Urine pH (5-6) Ur Specific [place] (1.005-1.025) Urine Protein (Negative) Urine Ketones (NEGATIVE) Urine Blood (0-5) Junito/ul Urine Nitrite (NEGATIVE) Urine Bilirubin (NEGATIVE) Urine Urobilinogen (0-1) mg/dL Ur Leukocyte Esterase (NEGATIVE) Urine WBC (Auto) (0-5) /HPF Urine RBC (Auto) (0-2) /HPF U Epithel Cells (Auto) (FEW) /HPF Urine Bacteria (Auto) (NEGATIVE) /HPF Amorphous Crystals (NEGATIVE) /HPF Urine Culture Reflexed (NO) Urine Glucose (NEGATIVE) mg/dL Urine HCG, Qual (Negative) 02/20/20 02/21/20 02/21/20 Range/Units Unknown 03:00 05:20 WBC 10.4 (4.0-10.5) K/mm3 RBC 3.58 L (4.1-5.4) M/mm3 Hgb 11.2 L D (12.0-16.0) gm/dl Hct 33.7 L (35-47) % MCV 94.1 (78-100) fl MCH 31.3 (26-32) pg MCHC 33.2 (32-36) g/dl RDW 12.9 (11.5-14.0) % Plt Count 246 (150-450) K/mm3 MPV 10.7 (7.5-11.0) fl Gran % 48.9 (36.0-66.0) % Eos # (Auto) 0.07 (0-0.5) Absolute Lymphs (auto) 4.53 (1.0-4.6) Absolute Monos (auto) 0.70 (0.0-1.3) Lymphocytes % 43.5 (24.0-44.0) % Monocytes % 6.7 (0.0-12.0) % Eosinophils % 0.7 (0.00-5.0) % Basophils % 0.2 (0.0-0.4) % Absolute Granulocytes 5.10 (1.4-6.9) Basophils # 0.02 (0-0.4) Sodium (137-145) mmol/L Potassium (3.5-5.1) mmol/L Chloride (98-107) mmol/L Carbon Dioxide (22-30) mmol/L Anion Gap (5-15) MEQ/L BUN (7-17) mg/dL Creatinine (0.52-1.04) mg/dL Estimated GFR ML/MIN Glucose (74-106) mg/dL Calcium (8.4-10.2) mg/dL Total Bilirubin (0.2-1.3) mg/dL AST (14-36) U/L ALT (0-35) U/L Alkaline Phosphatase (38-126) U/L Troponin I < 0.012 (0.000-0.034) ng/mL Serum Total Protein (6.3-8.2) g/dL Albumin (3.5-5.0) g/dL Amylase (30-110) U/L Lipase (23-300) U/L Beta HCG, Quant 2.60 mIU/ml Serum , Qual (Negative) Urine Color (YELLOW) Urine Appearance (CLEAR) Urine pH (5-6) Ur Specific [place] (1.005-1.025) Urine Protein (Negative) Urine Ketones (NEGATIVE) Urine Blood (0-5) Junito/ul Urine Nitrite (NEGATIVE) Urine Bilirubin (NEGATIVE) Urine Urobilinogen (0-1) mg/dL Ur Leukocyte Esterase (NEGATIVE) Urine WBC (Auto) (0-5) /HPF Urine RBC (Auto) (0-2) /HPF U Epithel Cells (Auto) (FEW) /HPF Urine Bacteria (Auto) (NEGATIVE) /HPF Amorphous Crystals (NEGATIVE) /HPF Urine Culture Reflexed (NO) Urine Glucose (NEGATIVE) mg/dL Urine HCG, Qual (Negative) 02/21/20 02/21/20 Range/Units 05:20 05:30 WBC (4.0-10.5) K/mm3 RBC (4.1-5.4) M/mm3 Hgb (12.0-16.0) gm/dl Hct (35-47) % MCV (78-100) fl MCH (26-32) pg MCHC (32-36) g/dl RDW (11.5-14.0) % Plt Count (150-450) K/mm3 MPV (7.5-11.0) fl Gran % (36.0-66.0) % Eos # (Auto) (0-0.5) Absolute Lymphs (auto) (1.0-4.6) Absolute Monos (auto) (0.0-1.3) Lymphocytes % (24.0-44.0) % Monocytes % (0.0-12.0) % Eosinophils % (0.00-5.0) % Basophils % (0.0-0.4) % Absolute Granulocytes (1.4-6.9) Basophils # (0-0.4) Sodium 139 (137-145) mmol/L Potassium 3.6 (3.5-5.1) mmol/L Chloride 106 (98-107) mmol/L Carbon Dioxide 27 (22-30) mmol/L Anion Gap 9.6 (5-15) MEQ/L BUN 15 (7-17) mg/dL Creatinine 0.61 (0.52-1.04) mg/dL Estimated GFR > 60.0 ML/MIN Glucose 125 H (74-106) mg/dL Calcium 8.4 D (8.4-10.2) mg/dL Total Bilirubin 0.50 (0.2-1.3) mg/dL AST 20 (14-36) U/L ALT 21 (0-35) U/L Alkaline Phosphatase 96 (38-126) U/L Troponin I (0.000-0.034) ng/mL Serum Total Protein 6.2 L (6.3-8.2) g/dL Albumin 3.5 (3.5-5.0) g/dL Amylase (30-110) U/L Lipase (23-300) U/L Beta HCG, Quant < 2.39 mIU/ml Serum , Qual (Negative) Urine Color (YELLOW) Urine Appearance (CLEAR) Urine pH (5-6) Ur Specific [place] (1.005-1.025) Urine Protein (Negative) Urine Ketones (NEGATIVE) Urine Blood (0-5) Junito/ul Urine Nitrite (NEGATIVE) Urine Bilirubin (NEGATIVE) Urine Urobilinogen (0-1) mg/dL Ur Leukocyte Esterase (NEGATIVE) Urine WBC (Auto) (0-5) /HPF Urine RBC (Auto) (0-2) /HPF U Epithel Cells (Auto) (FEW) /HPF Urine Bacteria (Auto) (NEGATIVE) /HPF Amorphous Crystals (NEGATIVE) /HPF Urine Culture Reflexed (NO) Urine Glucose (NEGATIVE) mg/dL Urine HCG, Qual (Negative) Accuchecks Date 02/21/20 Time 11:45 Accucheck Value: 197 Accucheck Value: 202 - Radiology Impressions Radiology Exams & Impressions: Radiology Procedures Category Date Time Status ABDOMEN AND PELVIS W CONTRAST [CT] Stat Exams 02/20/20 14:30 Completed GALLBLADDER [US] Stat Exams 02/20/20 18:00 Completed Assessment/Plan (1) Epigastric abdominal pain Current Visit: Yes Status: Acute Assessment & Plan: This appears to be chronic for patient. She has had RUQ US that was neg for stones. She had a HIDA scan 8 months ago that indicated EF of 70% which does not meet criteria for dyskinesia. Patient denies alcohol use and does not have elevated pancreatic enzymes. She has tenderness with palpation epigastric and RUQ area. Differentials include: duodenal ulcer, gastritis, hpylori, gastroparesis or cyclical vomiting syndrome. Unsure if patient has had EGD in the past but patient may benefit from a scope. Patient got diluadid in ER for pain. She is on omeprazole and started on IV famotidine. Patient was give a PO challenge of clear liquids and failed and had to be de-escalated back to IV fluids. Nursing staff was instructed if patient was feeling better in the evening she could retrial her PO clear liquids. Code(s): R10.13 - EPIGASTRIC PAIN (2) Cyclical vomiting syndrome Current Visit: Yes Status: Acute Assessment & Plan: Patient has some symptoms consistent with cyclical vomiting syndrome but other differential are being considered at this time. Will continue to monitor for vomiting. Patient has zofran but will add reglan or phenergan if needed. (3) Intractable nausea and vomiting Current Visit: Yes Status: Acute Code(s): R11.2 - NAUSEA WITH VOMITING, UNSPECIFIED (4) Uncontrolled hypertension Current Visit: Yes Status: Acute Assessment & Plan: Patient is on two forms of bp meds. Her bp appeared to have improved. Will continue to monitor bp. Patient has prn bp meds if needed Code(s): I10 - ESSENTIAL (PRIMARY) HYPERTENSION (5) Abdominal pain Current Visit: No Status: Acute Code(s): R10.9 - UNSPECIFIED ABDOMINAL PAIN
[2020-02-21] MEDS: Glucophage 500 MG PO SCH (16:44)
[2020-02-21] MEDS: HUMALOG SQ PRN (16:46)
[2020-02-21] MEDS ORDERED: NON-FORMULARY ITEM (Dulaglutide [Trulicity] 1.5 ml) SQ SCH (18:00)
[2020-02-21] MEDS: zyPREXA 5MG TABLET PO SCH (21:10)
[2020-02-21] MEDS: Prozac 20 MG PO SCH (21:10)
[2020-02-22] MEDS: Sodium Chloride 0.9% W/ 20 mEq KCl/LITER 1,000 ML IV SCH ×3 (03:31→18:59)
[2020-02-22 06:20] LABS: Hematocrit 35.5 % (35-47); Hemoglobin 11.6 gm/dl (12.0-16.0); Mean Cell Volume 95.7 fl (78-100); Mean Corpuscular Hemoglobin 31.3 pg (26-32); Mean Corpuscular Hgb Concent. 32.7 g/dl (32-36); Platelet Count 230 K/mm3 (150-450); Red Blood Count 3.71 M/mm3 (4.1-5.4); Red Cell Distribution Width 12.9 % (11.5-14.0); White Blood Count 7.9 K/mm3 (4.0-10.5)
[2020-02-22 06:30] LABS: ALBUMIN 3.5 g/dL (3.5-5.0); ALKALINE PHOSPHATASE 90 U/L (38-126); ANION GAP 10.6 MEQ/L (5-15); BLOOD UREA NITROGEN 11 mg/dL (7-17); CHLORIDE 110 mmol/L (98-107); Calcium 8.7 mg/dL (8.4-10.2); Carbon Dioxide 22 mmol/L (22-30); Creatinine 1 0.64 mg/dL (0.52-1.04); Glucose 136 mg/dL (74-106); Potassium 4.3 mmol/L (3.5-5.1); SGOT/AST 40 U/L (14-36); SGPT/ALT 26 U/L (0-35); SODIUM 139 mmol/L (137-145); Total Protein 6.5 g/dL (6.3-8.2)
[2020-02-22] MEDS: Glucophage 500 MG PO SCH ×2 (08:22→16:40)
[2020-02-22] MEDS: Maxzide-25MG Tablet PO SCH (09:18)
[2020-02-22] MEDS: Catapres 0.1 MG PO SCH (09:18)
[2020-02-22] MEDS: Neurontin 400 MG PO SCH ×3 (09:18→21:33)
[2020-02-22] MEDS: Pepcid 20 MG VIAL IV SCH ×2 (09:18→21:34)
[2020-02-22] MEDS: Protonix 40MG Tablet PO SCH (09:19)
[2020-02-22] MEDS: Toprol Xl 100 MG PO SCH ×2 (09:19→21:34)
[2020-02-22] MEDS ORDERED: [UNRECOGNIZED DRUG - OTHER] PO SCH (10:00)
[2020-02-22] MEDS ORDERED: NON-FORMULARY ITEM (Omeprazole [Prilosec] 20 MG) PO SCH (10:00)
[2020-02-22] MEDS: XANAX 1 MG PO PRN ×2 (13:03→18:41)
[2020-02-22] MEDS: MORPHINE SULFATE 4 MG INJ IV PRN ×2 (16:14→21:29)
[2020-02-22] MEDS: Zofran 4 MG/2 ML VIAL IV PRN (16:21)
--- NOTE | 2020-02-22 16:22 | PCM.NOTE ---
Date and Time: 02/22/20 1616 Subjective Assessment: 49 yr old female seen and examined this am. Patient reports that she had nausea yesterday with starting clear liquid diet. She did better with clear liquids at dinner time. She reports that she has not vomited since the night she was admitted to the hospital. Patient reports her abdominal pain is improved. She denies any diarrhea and reports she had a BM this am that was formed and normal in color. Patient wanted to try to advance her diet to regular diet as tolerated but still order bland food. - Review of Systems All Other Systems: Reviewed and Negative (Except for what is listed in HPI) Objective Exam General Appearance: no apparent distress, mild distress Neurologic Exam: alert, oriented x 3, cooperative, normal mood/affect, No motor deficits Skin Exam: normal color, warm, dry Eye Exam: eyes nml inspection Ears, Nose, Throat Exam: moist mucous membranes Neck Exam: normal inspection Respiratory Exam: normal breath sounds, lungs clear, No respiratory distress, No crackles/rales, No rhonchi, No wheezing Cardiovascular Exam: regular rate/rhythm, normal heart sounds, No murmur, No friction rub, No gallop Gastrointestinal/Abdomen Exam: soft, normal bowel sounds, No tenderness, No distention Extremity Exam: normal inspection Pelvic Exam: deferred Rectal Exam: deferred OBJECTIVE DATA Vital Signs: Vital Signs - 24 hr Temp Pulse Resp BP Pulse Ox 02/22/20 12:00 97.7 F 74 16 169/108 97 02/22/20 08:00 97.5 F 74 18 172/96 98 02/22/20 04:19 98.5 F 70 16 146/85 96 02/22/20 04:00 16 02/22/20 00:00 16 02/21/20 23:28 97.3 F 68 16 137/85 98 02/21/20 20:00 18 02/21/20 19:43 97.7 F 73 18 139/80 97 Pain Assessment - Last Documented Pain Intensity 0 Pain Scale Used 0-10 Pain Scale Intake and Output: Intake & Output 02/20/20 02/21/20 02/22/20 02/23/20 11:59 11:59 11:59 11:59 Intake Total 950 1943 Output Total 250 1800 Balance 700 143 Weight 82.8 kg Lab Results: Accuchecks Date 02/22/20 Time 11:30 Accucheck Value: 139 Accucheck Value: 136 Accucheck Value: 127 Lab Results-Last 24 Hours 02/22/20 02/22/20 Range/Units 05:40 05:40 WBC 7.9 (4.0-10.5) K/mm3 RBC 3.71 L (4.1-5.4) M/mm3 Hgb 11.6 L (12.0-16.0) gm/dl Hct 35.5 (35-47) % MCV 95.7 (78-100) fl MCH 31.3 (26-32) pg MCHC 32.7 (32-36) g/dl RDW 12.9 (11.5-14.0) % Plt Count 230 (150-450) K/mm3 MPV 11.0 (7.5-11.0) fl Sodium 139 (137-145) mmol/L Potassium 4.3 (3.5-5.1) mmol/L Chloride 110 H (98-107) mmol/L Carbon Dioxide 22 (22-30) mmol/L Anion Gap 10.6 (5-15) MEQ/L BUN 11 (7-17) mg/dL Creatinine 0.64 (0.52-1.04) mg/dL Estimated GFR > 60.0 ML/MIN Glucose 136 H (74-106) mg/dL Calcium 8.7 (8.4-10.2) mg/dL Total Bilirubin 0.60 (0.2-1.3) mg/dL AST 40 H (14-36) U/L ALT 26 (0-35) U/L Alkaline Phosphatase 90 (38-126) U/L Serum Total Protein 6.5 (6.3-8.2) g/dL Albumin 3.5 (3.5-5.0) g/dL Radiology Exams: Radiology Procedures Category Date Time Status GALLBLADDER [US] Stat Exams 02/20/20 18:00 Completed Assessment/Plan (1) Epigastric abdominal pain Current Visit: Yes Status: Acute Assessment & Plan: 49 yr old female with epigastric pain. Patient was pain free this am and plan was to send her home to follow up with PCP but as the day progressed she started to have severe pain which she rated 10/10. She also reported that she had normal BM this morning but later in the day had an episode of diarrhea and did not make it to the bathroom in time. Will get repeat lipase and amylase. Patient CBC and CMP appeared within normal limits. Patient will likely need to follow up with GI specialist as well. Patient is on omeprazole and famotidine. Code(s): R10.13 - EPIGASTRIC PAIN (2) Cyclical vomiting syndrome Current Visit: Yes Status: Acute Assessment & Plan: Symptoms were suspicious for cyclical vomiting syndrome. Will continue to monitor for vomiting. Patient has zofran for nausea. Patient is also reporting that when she has vomiting it is food that she has eaten hours ago. She may benefit from delayed gastric emptying study or upper GI with small bowel follow through. (3) Uncontrolled hypertension Current Visit: Yes Status: Acute Assessment & Plan: Patient's bp has been more elevated today. Will continue to monitor. Patient is on metoprolol and maxide for her bp. She may need to have dose increase of her medication however some of her blood pressures have been on the lower end of normal Code(s): I10 - ESSENTIAL (PRIMARY) HYPERTENSION
[2020-02-22 17:06] LABS: AMYLASE 64 U/L (30-110); LIPASE 130 U/L (23-300)
[2020-02-22 17:32] LABS: Gamma Glutamyl Transferase 95 IU/L (5-36)
[2020-02-22] MEDS: zyPREXA 5MG TABLET PO SCH (21:34)
[2020-02-22] MEDS: Prozac 20 MG PO SCH (21:34)
[2020-02-22] MEDS ORDERED: Nicoderm CQ 21 MG TOP SCH (22:00)
[2020-02-22] MEDS ORDERED: ENOXAPARIN SODIUM SQ SCH (22:00)
[2020-02-23] MEDS: Sodium Chloride 0.9% W/ 20 mEq KCl/LITER 1,000 ML IV SCH (03:05)
[2020-02-23] MEDS ORDERED: TORAdol 30 mg Injection IV PRN (08:17)
[2020-02-23] MEDS: Glucophage 500 MG PO SCH (08:18)
[2020-02-23] MEDS ORDERED: Sodium Chloride 0.9% 10 ML FLUSH Syringe IV PRN (08:30)
[2020-02-23 08:48] LABS: ALBUMIN 3.7 g/dL (3.5-5.0); ALKALINE PHOSPHATASE 103 U/L (38-126); ANION GAP 13.2 MEQ/L (5-15); BLOOD UREA NITROGEN 12 mg/dL (7-17); CHLORIDE 109 mmol/L (98-107); Carbon Dioxide 22 mmol/L (22-30); Creatinine 1 0.72 mg/dL (0.52-1.04); Glucose 160 mg/dL (74-106); Potassium 4.3 mmol/L (3.5-5.1); SGOT/AST 41 U/L (14-36); SGPT/ALT 34 U/L (0-35); SODIUM 140 mmol/L (137-145); Total Protein 6.7 g/dL (6.3-8.2)
[2020-02-23] MEDS: Maxzide-25MG Tablet PO SCH (09:37)
[2020-02-23] MEDS: Neurontin 400 MG PO SCH (09:37)
[2020-02-23] MEDS: Toprol Xl 100 MG PO SCH (09:38)
[2020-02-23] MEDS: Catapres 0.1 MG PO SCH (09:39)
[2020-02-23] MEDS: Protonix 40MG Tablet PO SCH (09:39)
[2020-02-23] MEDS: XANAX 1 MG PO PRN (09:42)
[2020-02-23 14:00] VITALS: BP 162/102; PULSE 82; O2SAT 99
[2020-02-23] MEDS ORDERED: Sodium Chloride 0.9% 10 ML FLUSH Syringe IV SCH (14:00)
[2020-02-23] MEDS ORDERED: Catapres 0.1 MG PO SCH (15:00)
[2020-02-23] MEDS ORDERED: ENOXAPARIN SODIUM SQ SCH (21:00)
== END 2020-02-23 13:45 | disposition home or self-care (01) ==
LOC: ED 14:05 → MED SURG 19:43
PROVIDERS: ADMIT Family Medicine; ATTEND Family Medicine
DX: R10.13 Epigastric pain (principal); R11.15 Cyclical vomiting syndrome unrelated to migraine; I10 Essential (primary) hypertension; E11.9 Type 2 diabetes mellitus without complications; R11.2 Nausea with vomiting, unspecified; Z79.899 Other long term (current) drug therapy
CPT/HCPCS: 36000; 36415; 74177; 76705; 80053; 81001; 81025; 82150; 82962; 82977; 83690; 84484; 84702; 84703; 85025; 85027; 96360; 96374; 96375; 96376; 99285; G0378; J1170; J1650; J1817; J2270; J2405; J2550; A9270-GY

== ENCOUNTER 2022-03-20 05:59 | Day surgery (SDC) | payer OTHER ==
[2022-03-20] MEDS ORDERED: Lactated Ringers 1,000 ML IV SCH (06:00)
[2022-03-20] MEDS ORDERED: Versed 2 MG/2 ML Injection ONE (07:19)
[2022-03-20] MEDS ORDERED: DIPRIVAN 200 MG/20 ML IV ONE (07:19)
[2022-03-20] MEDS ORDERED: Xylocaine-Mpf 2% 5 Ml Vial ONE (07:25)
[2022-03-20 07:54] VITALS: O2SAT 98
[2022-03-20 07:59] VITALS: BP 117/79; PULSE 95
--- NOTE | 2022-03-20 11:32 | OP ---
SURGERY DATE/TIME: 03/20/2022 4173 PREOPERATIVE DIAGNOSIS: Screening exam. POSTOPERATIVE DIAGNOSIS: Normal exam. PROCEDURE: Colonoscopy. SURGEON: Dr. Manolo Bruce. ANESTHESIA: MAC. Medications given by anesthesia department. HISTORY: The patient is a 51-year-old white female presenting now for screening colonoscopy. She was appraised of the risks of the procedure including the risk of perforation, phlebitis, untoward reaction to medication, bleeding and missed lesions. The patient verbalized her understanding and desired to have the procedure performed. DESCRIPTION OF PROCEDURE: The patient was given the medications by the anesthesia department. She had continuous pulse oximetry, ECG monitoring, intermittent blood pressure monitoring. She was placed in the left lateral decubitus position. A digital rectal examination was performed and revealed normal anal sphincter tone and no masses. The flexible Olympus pediatric colonoscope was used to intubate the rectum. A view of the colon was developed sequentially to the cecum. Upon insertion and withdrawal was noted a normal appearing colon but there was a large amount of liquid and at times semi-solid stool that precluded complete evaluation of the colon. The scope was removed from the patient who tolerated the procedure well and was sent back to OP recovery in good condition. Again, the prep was noted to be fair to poor.
== END 2022-03-20 08:05 | disposition home or self-care (01) ==
LOC: SDC 05:59
PROVIDERS: ATTEND Family Medicine
DX: Z12.11 Encounter for screening for malignant neoplasm of colon (principal); E11.9 Type 2 diabetes mellitus without complications
CPT/HCPCS: 82947; G0121; J2250; J2704

== ENCOUNTER 2022-07-01 06:00 | Emergency (ER) | payer OTHER ==
--- NOTE | 2022-07-01 06:42 | ERPHSYRPT ---
- History of Present Illness Source: patient, family Exam Limitations: clinical condition Patient Subjective Stated Complaint: pt states she has been dizzy since yesterday and having increased anxiety Triage Nursing Assessment: pt awake and alert, answers questions. pt very anxious and restless in bed. skin warm and dry. respirations nonlabored. heart rate 118, sinus tach on monitor. Timing/Duration: day(s) (2) Severity of Symptoms-Max: moderate Severity of Symptoms-Current: moderate Suicidal thoughts: other (none) Associated Symptoms: anxiety Previous symptoms: same symptoms as today Hx Tetanus, Diphtheria Vaccination/Date Given: Yes Hx Influenza Vaccination/Date Given: No Hx Pneumococcal Vaccination/Date Given: Yes Immunizations Up to Date: Yes <BRYN BARNES - Last Filed: 07/01/22 06:48> <RADHA TAYLOR - Last Filed: 07/01/22 08:03> - History of Present Illness Time Seen by Provider: 07/01/22 06:20 Physician History: This is a 51-year-old white female patient has severe anxiety issues and was brought into the emergency department by her because she complains of dizziness and worsening anxiety issues. became concerned when she had a syncopal episode yesterday. Patient states that they recently switched her anxiety medicine from Klonopin to Ativan. Patient admitted that she has used her Ativan too often and is now out of her Ativan. She has been out of her Ativan for 2 days. However, she told a second nurse she didnt take the Ativan because she does not like it and has more at home. In reviewing the records it appears as though she received a prescription of 30 days of Ativan on 06/22/2022. Patient arrives diaphoretic tachycardic and writhing in the bed. She does not have chest pain. She feels short of breath. Patient has a history of gastroesophageal reflux disease, hypertension, hyperlipidemia, migraine headaches, diabetes, anxiety issues, bipolar and depression issues. She also has chronic low back pain. Patient is a current daily smoker of cigarettes. Her primary care physician is Dr. Suggs. She sees a Dr. Tha Alford as an outpatient. He appears to be prescribing her the Ativan. Patient denies being suicidal or homicidal. (BRYN BRANES) Allergies/Adverse Reactions: NKA Allergy (Mild, Verified 07/01/22 07:05) Home Medications: Dulaglutide [Trulicity] 1.5 ml SQ WEEKLY 08/15/18 [History] Gabapentin 800 mg PO TID 08/15/18 [History] OLANZapine [Olanzapine] 20 mg PO HS 08/15/18 [History] Fluoxetine HCl [Prozac] 60 mg PO DAILY 11/18/18 [History] Metformin HCl 500 mg [Glucophage 500 MG] 1,000 mg PO BIDWM 02/20/20 [History] Triamterene/Hydrochlorothiazid [Triamterene-Hctz 75-50 mg Tab] 1 tab PO DAILY 02/21/20 [History] Clonidine HCl 0.1 mg [Clonidine 0.1 mg Tablet] 0.2 mg PO DAILY 03/07/22 [History] Glyburide 5 mg [Micronase 5 MG] 5 mg PO BID 03/07/22 [History] Lisinopril 5 mg [Zestril 5 MG] 10 mg PO DAILY 03/07/22 [History] Simvastatin 20Mg [Zocor 20Mg] 20 mg PO DAILY 03/07/22 [History] Buprenorphine HCl/Naloxone HCl [Buprenorphine-Nalox 8-2 mg Tab] 1.5 tablet PO DAILY 07/01/22 [History] Lorazepam 0.5 mg [Ativan 0.5 MG] 0.25 mg PO TID 07/01/22 [History] Meloxicam 15 mg [Meloxicam 15 MG] 15 mg PO BID 07/01/22 [History] Omeprazole [Prilosec] 40 mg PO DAILY 07/01/22 [History] Travel Risk - International Travel Have you traveled outside of the country in past 3 weeks: No - Coronavirus Screening Are you exhibiting any of the following symptoms?: No Close contact with a COVID-19 positive Pt in past 14-21 Days: No - Vaccine Status Have you recieved a Covid-19 vaccination: Yes [employer]: Pfizer - Vaccination Dates Date of 2cond Vaccination (if applicable): 2020 <BRYN BARNES - Last Filed: 07/01/22 06:48> - Past Medical History Pertinent Past Medical History: Yes Neurological History: Seizures ENT History: No Pertinent History Cardiac History: Hypertension Respiratory History: No Pertinent History Endocrine Medical History: Diabetes Type II Musculoskeletal History: No Pertinent History GI Medical History: GERD History: Other Psycho-Social History: Anxiety, Bipolar, Depression Female Reproductive Disorders: Other Other Medical History: freq uti's, - Past Surgical History Past Surgical History: Yes Neuro Surgical History: No Pertinent History Cardiac: No Pertinent History Respiratory: No Pertinent History Gastrointestinal: No Pertinent History Genitourinary: No Pertinent History Musculoskeletal: No Pertinent History Female Surgical History: Tubal Ligation Other Surgical History: lump removed left breast 2004. leep procedure - Social History Smoking Status: Current every day smoker How long have you smoked: 33 years Exposure to second hand smoke: Yes Drug Use: marijuana Patient Lives Alone: No - Female History Hx Last Menstrual Period: post Hx Now: No <BRYN BARNES - Last Filed: 07/01/22 06:48> - Review of Systems Constitutional: Weakness Eyes: No Symptoms Ears, Nose, & Throat: No Symptoms Respiratory: Dyspnea Cardiac: No Symptoms Abdominal/Gastrointestinal: No Symptoms Genitourinary Symptoms: No Symptoms Musculoskeletal: No Symptoms Skin: No Symptoms Neurological: No Symptoms Psychological: Anxiety, No Suicidal Ideations, No Homicidal Ideations Endocrine: No Symptoms Hematologic/Lymphatic: No Symptoms Immunological/Allergic: No Symptoms All Other Systems: Reviewed and Negative <BRYN BARNES - Last Filed: 07/01/22 06:48> - Physical Exam General Appearance: mild distress, alert, anxiety Eyes, Ears, Nose, Throat Exam: normal ENT inspection, moist mucous membranes Neck Exam: normal inspection, non-tender, supple, full range of motion Respiratory Exam: normal breath sounds, lungs clear, airway intact, No chest tenderness, No respiratory distress Cardiovascular Exam: tachycardia Gastrointestinal/Abdominal Exam: soft, normal bowel sounds, No tenderness Current Suicidality: denies suicide plan Neurological Exam: 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, 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, oriented x 3, anxious Appearance: impaired insight Behavior/Eye Contact/Speech: cooperative, avoids eye contact, intoxicated appearance Thoughts/Hallucinations: no apparent hallucination Skin Exam: warm, diaphoresis SpO2 Interpretation: normal SpO2: 99 O2 Delivery: Room Air <BRYN BARNES - Last Filed: 07/01/22 06:48> - Nursing Vital Signs Nursing Vital Signs: Initial Vital Signs Temperature 97.8 F 07/01/22 06:12 Pulse Rate 118 H 07/01/22 06:12 Respiratory Rate 24 07/01/22 06:12 Blood Pressure 186/116 07/01/22 06:12 O2 Sat by Pulse Oximetry 99 07/01/22 06:12 Pain Scale Pain Intensity 2 - Course Nursing assessment & vital signs reviewed: Yes EKG Interpreted by Me: RATE (120), Sinus Tach, NORMAL AXIS, NORMAL INTERVALS, NORMAL QRS, NORMAL ST-T, Other <BRYN BARNES - Last Filed: 07/01/22 06:48> Ordered Tests: Active Orders 24 hr Category Date Time Status Land Sales Agent STAT Care 07/01/22 06:42 Active Clean Catch Urine Specimen STAT Care 07/01/22 06:42 Active EKG-ER Only STAT Care 07/01/22 06:42 Active IV Insertion STAT Care 07/01/22 06:42 Active HEAD WITHOUT CONTRAST [CT] Stat Exams 07/01/22 06:42 Taken ACETAMINOPHEN Stat Lab 07/01/22 07:05 Completed CBC W DIFF Stat Lab 07/01/22 07:05 Completed ETHYL ALCOHOL Stat Lab 07/01/22 07:05 Completed SALICYLATE Stat Lab 07/01/22 07:05 Completed TROPONIN Q4H Lab 07/01/22 07:05 Completed TROPONIN Q4H Lab 07/01/22 10:45 Ordered TROPONIN Q4H Lab 07/01/22 14:45 Ordered UA W/RFX CULTURE Stat Lab 07/01/22 07:47 Ordered Urine Triage Profile Stat Lab 07/01/22 07:28 Ordered Medication Summary Generic Name Dose Route Start Last Admin Trade Name Freq PRN Reason Stop Dose Admin Sodium Chloride 1,000 mls @ 100 mls/hr 07/01/22 06:45 07/01/22 07:23 Sodium Chloride 0.9% 1000 Ml IV 07/31/22 06:44 100 mls/hr .Q10H SANDIE Administration Discontinued Medications Generic Name Dose Route Start Last Admin Trade Name Freq PRN Reason Stop Dose Admin Hydroxyzine HCl 50 mg 07/01/22 07:53 07/01/22 07:58 Hydroxyzine Hcl 100 Mg/2 Ml Vial IM 07/01/22 07:54 50 mg ONCE ONE Administration Lab/Rad Data: Laboratory Result Diagrams 07/01/22 07:05 Laboratory Results 07/01/22 07/01/22 07/01/22 Range/Units 07:47 07:05 07:05 WBC (4.0-10.5) x10^3/uL RBC (4.1-5.4) x10^6/uL Hgb (12.0-16.0) g/dL Hct (35-47) % MCV (78-100) fL MCH (26-32) pg MCHC (32-36) g/dL RDW (11.5-14.0) % Plt Count (150-450) x10^3/uL MPV (7.5-11.0) fL Gran % (36.0-66.0) % Immature Gran % (Auto) (0.00-0.4) % Nucleat RBC Rel Count (0.00-0.1) % Eos # (Auto) (0-0.5) x10^3/uL Immature Gran # (Auto) (0.00-0.03) x10^3u/L Absolute Lymphs (auto) (1.0-4.6) x10^3/uL Absolute Monos (auto) (0.0-1.3) x10^3/uL Absolute Nucleated RBC (0.00-0.01) x10^3u/L Lymphocytes % (24.0-44.0) % Monocytes % (0.0-12.0) % Eosinophils % (0.00-5.0) % Basophils % (0.0-0.4) % Absolute Granulocytes (1.4-6.9) x10^3/uL Basophils # (0-0.4) x10^3/uL Troponin I < 0.012 (0.000-0.034) ng/mL Urinalys Dipstick Clnc MAIN LAB Urine Color YELLOW (YELLOW) Urine Appearance CLEAR (CLEAR) Urine pH 7.0 (5-6) Ur Specific Whitmer 1.020 (1.005-1.025) POC Urine Protein Conf NEGATIVE (Negative) Urine Ketones >=160 (NEGATIVE) Urine Nitrite NEGATIVE (NEGATIVE) Urine Bilirubin NEGATIVE (NEGATIVE) Urine Urobilinogen 0.2 (0-1) mg/dL Urine Leukocytes NEGATIVE (NEGATIVE) Urine WBC (Auto) NONE (0-5) /HPF Urine RBC (Auto) 3-5 (0-2) /HPF U Epithel Cells (Auto) NONE (FEW) /HPF Urine Bacteria (Auto) NONE (NEGATIVE) /HPF Urine RBC TRACE-INTACT (0-5) Junito/ul Urine Mucus (Auto) SLIGHT (NEGATIVE) /HPF Ur Culture Indicated? NO Urine Glucose >=1000 (NEGATIVE) mg/dL Salicylates (2-20) mg/dL Acetaminophen (10-30) ug/ml Ethyl Alcohol (0-10) mg/dL Influenza Type A Ag NEGATIVE (NEGATIVE) Influenza Type B Ag NEGATIVE (NEGATIVE) RSV (PCR) NEGATIVE (Negative) SARS-CoV-2 (PCR) NEGATIVE (NEGATIVE) 07/01/22 07/01/22 Range/Units 07:05 07:05 WBC 13.2 H (4.0-10.5) x10^3/uL RBC 4.58 (4.1-5.4) x10^6/uL Hgb 14.4 (12.0-16.0) g/dL Hct 41.3 (35-47) % MCV 90.2 (78-100) fL MCH 31.4 (26-32) pg MCHC 34.9 (32-36) g/dL RDW 11.9 (11.5-14.0) % Plt Count 344 (150-450) x10^3/uL MPV 10.4 (7.5-11.0) fL Gran % 73.5 H (36.0-66.0) % Immature Gran % (Auto) 0.4 (0.00-0.4) % Nucleat RBC Rel Count 0.0 (0.00-0.1) % Eos # (Auto) 0.12 (0-0.5) x10^3/uL Immature Gran # (Auto) 0.05 H (0.00-0.03) x10^3u/L Absolute Lymphs (auto) 2.42 (1.0-4.6) x10^3/uL Absolute Monos (auto) 0.83 (0.0-1.3) x10^3/uL Absolute Nucleated RBC 0.00 (0.00-0.01) x10^3u/L Lymphocytes % 18.4 L (24.0-44.0) % Monocytes % 6.3 (0.0-12.0) % Eosinophils % 0.9 (0.00-5.0) % Basophils % 0.5 (0.0-0.4) % Absolute Granulocytes 9.69 H (1.4-6.9) x10^3/uL Basophils # 0.07 (0-0.4) x10^3/uL Troponin I (0.000-0.034) ng/mL Urinalys Dipstick Clnc Urine Color (YELLOW) Urine Appearance (CLEAR) Urine pH (5-6) Ur Specific Whitmer (1.005-1.025) POC Urine Protein Conf (Negative) Urine Ketones (NEGATIVE) Urine Nitrite (NEGATIVE) Urine Bilirubin (NEGATIVE) Urine Urobilinogen (0-1) mg/dL Urine Leukocytes (NEGATIVE) Urine WBC (Auto) (0-5) /HPF Urine RBC (Auto) (0-2) /HPF U Epithel Cells (Auto) (FEW) /HPF Urine Bacteria (Auto) (NEGATIVE) /HPF Urine RBC (0-5) Junito/ul Urine Mucus (Auto) (NEGATIVE) /HPF Ur Culture Indicated? Urine Glucose (NEGATIVE) mg/dL Salicylates < 1.0 L (2-20) mg/dL Acetaminophen < 10 L (10-30) ug/ml Ethyl Alcohol < 10 (0-10) mg/dL Influenza Type A Ag (NEGATIVE) Influenza Type B Ag (NEGATIVE) RSV (PCR) (Negative) SARS-CoV-2 (PCR) (NEGATIVE) - Progress Progress: improved, re-examined Counseled pt/family regarding: lab results, diagnosis, need for follow-up <BRYN BARNES - Last Filed: 07/01/22 06:48> - Progress Progress: improved, re-examined <RADHA TAYLOR - Last Filed: 07/01/22 08:03> - Progress Progress Note: 07/01/22 07:57 Patient is still complaining of severe anxiety. Hydroxyzine 50 mg intramuscular 1 dose was given. Patient is advised to take her anxiety medicine as prescribed instead of over taking it and advised to follow-up with her primary care physician in next 2 to 3 days as well as also advised to follow-up outpatient mental health clinic at [place]. (RADHA TAYLOR) - Departure Departure Disposition: Observation Critical Care Time: No <BRYN BARNES - Last Filed: 07/01/22 06:48> - Departure Departure Disposition: Home Critical Care Time: No <RADHA TAYLOR - Last Filed: 07/01/22 08:03> - Departure Clinical Impression: Anxiety, Tachycardia Acute drug withdrawal syndrome Qualifiers: Complication of substance-induced condition: uncomplicated Qualified Code(s): F19.930 - Other psychoactive substance use, unspecified with withdrawal, uncomplicated Condition: Stable Referrals: ELOY SUGGS [Primary Care Provider] - Follow up/PCP as directed Instructions: Why Taking Your Medicine or Drug as Ordered Is Important Additional Instructions: Discharge/Care Plan BARROSOJERSEY VELASQUEZ was seen on 07/01/22 in the Emergency Room. The patient was counseled regarding Diagnosis,Lab results, Imaging studies, need for follow up and when to return to the Emergency Room. Prescriptions given: Discharge Note I have spoken with the patient and/or caregivers. I have explained the patient's condition, diagnosis and treatment plan based on the information available to me at this time. I have answered the patient's and/or caregiver's questions and addressed any concerns. The patient and/or caregivers have as good understanding of the patient's diagnosis, condition and treatment plan as can be expected at this point. The vital signs have been stable. The patient's condition is stable and appropriate for discharge from the emergency department. The patient will pursue further outpatient evaluation with the primary care physician or other designated or consulting physician as outlined in the d ischarge instructions. The patient and/or caregivers are agreeable to this plan of care and follow-up instructions have been explained in detail. The patient and/or caregivers have received these instruction. The patient/and or caregivers are aware that any significant change in condition or worsening of symptoms should prompt an immediate return to this or the closest emergency department or call 911. JERSEY BARROSO was seen on 07/01/22 n the Emergency Room. At that time you were treated for an emergent condition, during your visit Laboratory, Radiology and/or other procedures may have been ordered. It is very important that you follow-up with your Primary Care Physician ELOY SUGGS within the next 24-48 hours to review your Emergency Room visit and the final results of testing that was ordered. Some test results such as Urine Cultures, Blood Cultures, and other cultures if ordered will not be finalized for 24-48 hours. If you do not have a Primary Care Provider please call the medical records dep artment at [phone] ext [phone] to obtain a copy of your results or you may sign into our patient portal to obtain these results by visiting us @ [email or web address] and completing the following steps: 1. Click on the Patient Portal link 2. Click the Patient Self Enrollment Link to complete the enrollment form and entering your 3. Once the enrollment form is completed you will receive an email with a temporary ID and password at the email address you provided. 4. Next choose a user name and password. Your user name must be at least 4 characters long and your password must be at least 4 characters long. 5. Choose a security question from the list and provide your answer to the question. If you already have signed into the Health Portal you may access your Health Care Information 07/05 by the following steps: 1. Login to our website @ [email or web address] 2. Enter your original user name and password. FAQS The [facility] Health Portal is an online tool that contains your Lab Results, Radiology Reports, Visit History, Discharge Instructions and Health Summary Lab and Radiology Results will not be available for 72 hours on the portal. The Portal is a secure site, passwords are encryted and URLs are re-written so they cannot be copied and pasted. You and authorized family members are the only ones who can access your Portal. Also there is a timeout feature that protects your information if you leave the Portal page open. If you have technical difficulty please use the Contact Us link on the page this will allow you to submit any questions you have regarding the Portal or you may contact the Medical Record Department at [phone] ext [phone]. Please follow-up with your primary care physician as well as [facility] as an outpatient in next 2 to 3 days please take your medicine as prescribed and do not over dose your medicine as overdose your medicine it is dangerous to your health if you take more medicine than prescribed. Prescriptions: Hydroxyzine HCl 25 mg [Atarax 25 mg] 25 mg PO QID 1 Days #60 tablet
[2022-07-01] MEDS ORDERED: Sodium Chloride 0.9% 1000 ML 1,000 ML IV SCH (06:45)
[2022-07-01 07:09] LABS: Absolute Neutrophil Ct (ANC) 9.69 x10^3/uL (1.4-6.9); Basophil (Absolute #) 0.07 x10^3/uL (0-0.4); Eosinophil % 0.9 % (0.00-5.0); Eosinophil (Absolute #) 0.12 x10^3/uL (0-0.5); Hematocrit 41.3 % (35-47); Hemoglobin 14.4 g/dL (12.0-16.0); Lymphocyte (Absolute #) 2.42 x10^3/uL (1.0-4.6); Lymphocytes % 18.4 % (24.0-44.0); Mean Cell Volume 90.2 fL (78-100); Mean Corpuscular Hemoglobin 31.4 pg (26-32); Mean Corpuscular Hgb Concent. 34.9 g/dL (32-36); Mean Platelet Volume 10.4 fL (7.5-11.0); Monocyte (Absolute #) 0.83 x10^3/uL (0.0-1.3); Monocytes % 6.3 % (0.0-12.0); Neutrophil % 73.5 % (36.0-66.0); Platelet Count 344 x10^3/uL (150-450); Red Blood Count 4.58 x10^6/uL (4.1-5.4); Red Cell Distribution Width 11.9 % (11.5-14.0); White Blood Count 13.2 x10^3/uL (4.0-10.5)
[2022-07-01] MEDS ORDERED: Sodium Chloride 0.9% 1000 ML 1,000 ML ONE (07:23)
[2022-07-01 07:27] LABS: ACETAMINOPHEN < 10 ug/ml (10-30); ETHYL ALCOHOL < 10 mg/dL (0-10); SALICYLATE < 1.0 mg/dL (2-20)
[2022-07-01 07:46] LABS: INFLUENZA A NEGATIVE (NEGATIVE); INFLUENZA B NEGATIVE (NEGATIVE); RESPIRATORY SYNCTIAL VIRUS NEGATIVE (Negative); SARS-CoV-2 Xpert Express NEGATIVE (NEGATIVE)
[2022-07-01 07:46] LABS: Mucus SLIGHT /HPF (NEGATIVE)
[2022-07-01 07:47] LABS: Appearance CLEAR (CLEAR); Bilirubin NEGATIVE (NEGATIVE); Dipstick done @ ? MAIN LAB; Glucose >=1000 mg/dL (NEGATIVE); Ketones >=160 (NEGATIVE); Nitrite NEGATIVE (NEGATIVE); Protein,Urine Dip NEGATIVE (Negative); RBC TRACE-INTACT Ery/ul (0-5); Urine Cultured Indicated? NO; Urobilinogen 0.2 mg/dL (0-1)
[2022-07-01] MEDS ORDERED: VISTARIL 100MG/2ML IM ONE ×2 (07:53→07:57)
[2022-07-01 08:00] LABS: Barbiturate,Urine NEGATIVE (NEGATIVE); Benzodiazepine,Urine NEGATIVE (NEGATIVE); Cocaine,Urine NEGATIVE (NEGATIVE); Methadone,Urine NEGATIVE (NEGATIVE); Opiate,Urine NEGATIVE (NEGATIVE); PCP,Urine NEGATIVE (NEGATIVE); THC,Urine POSITIVE (NEGATIVE)
[2022-07-01 08:06] LABS: Amphetamine,Urine NEGATIVE (NEGATIVE)
[2022-07-01 08:31] VITALS: BP 194/100; PULSE 90; O2SAT 98
--- NOTE | 2022-07-01 19:37 | XRAY ---
Indication: Syncope, dizziness, weakness, nausea. Multiple contiguous axial images obtained through the head without contrast. Comparison: None Age-appropriate global atrophy. Bilateral basal ganglia remote lacunar infarcts. No acute intracranial hemorrhage, abnormal extra-axial fluid collection, or mass effect. Fourth ventricle is midline without hydrocephalus. Bony calvarium intact. Visualized paranasal sinuses and mastoid air cells are clear. Impression: Bilateral basal ganglia remote lacunar infarcts. Remaining CT head without contrast exam is negative. Comment: Preliminary interpretation made by [facility]. No critical discrepancy.
== END 2022-07-01 08:30 | disposition home or self-care (01) ==
LOC: ED 06:00
DX: F41.9 Anxiety disorder, unspecified (principal); R00.0 Tachycardia, unspecified; F19.930 Other psychoactive substance use, unspecified with withdrawal, uncomplicated; R42 Dizziness and giddiness; I10 Essential (primary) hypertension; E78.5 Hyperlipidemia, unspecified; E11.9 Type 2 diabetes mellitus without complications; Z72.0 Tobacco use; Z79.84 Long term (current) use of oral hypoglycemic drugs; Z79.891 Long term (current) use of opiate analgesic; Z79.899 Other long term (current) drug therapy
CPT/HCPCS: 0241U; 36000; 36415; 70450; 80307; 81015; 84484; 85025; 93005; 93041; 96360; 96372; 99284; G0480; J3410

== ENCOUNTER 2025-01-04 07:32 | Observation (INO) | payer BC, OTHER ==
[2025-01-04] MEDS ORDERED: Zofran 4 MG/2 ML VIAL ONE (08:06)
[2025-01-04] MEDS ORDERED: Sodium Chloride 0.9% 1000 ML 1,000 ML ONE ×2 (08:06→12:24)
--- NOTE | 2025-01-04 08:06 | ERPHSYRPT ---
- History of Present Illness Time Seen by Provider: 01/04/25 07:55 Historian: patient Exam Limitations: no limitations Patient Subjective Stated Complaint: Vomiting Triage Nursing Assessment: Patient ambulated back to ED and transferred self to bed. Patient A+O X 3. Patient's skin pale, warm and dry. Patient complains of N/V, diarrhea and abdominal pain 7/10 that started last night. Patient's abdomen soft and round with BS X 4. Patient also has moist non productive cough. Lungs noted to have wheezing A/P eliseo. Physician History: 54yo f pmhx dm2, COPD, presents by private vehicle for vomiting and cough since last night. Pt reports she has been sick on and off for the past 4wks w/ URI and nausea. Pt reports she started having some NBNB emesis last night, had 1 episode of non bloody diarrhea last night. Pt endorses some epigastric abdominal pain. Pt reports her BG has been running in the upper 200s for the past several days, is not on insulin. Pt denies any fevers at home, does endorse some body aches. Pt denies any cp or difficulty breathing, does endorse productive cough. Timing/Duration: yesterday Activities at Onset: none Quality: aching Abdominal Pain Onset Location: epigastric Pain Radiation: no radiation Severity of Pain-Max: mild Severity of Pain-Current: mild Modifying Factors: Improves With: nothing Associated Symptoms: diarrhea, loss of appetite, nausea, vomiting, No fever/chills, No headache, No shortness of breath Previous symptoms: same symptoms as today Allergies/Adverse Reactions: NKA Allergy (Mild, Verified 01/04/25 07:42) Home Medications: Dulaglutide [Trulicity] 1.5 ml SQ WEEKLY 08/15/18 [History] Gabapentin 800 mg PO TID 08/15/18 [History] OLANZapine [Olanzapine] 20 mg PO HS 08/15/18 [History] Fluoxetine HCl [Prozac] 60 mg PO DAILY 11/18/18 [History] Metformin HCl 500 mg [Glucophage 500 MG] 1,000 mg PO BIDWM 02/20/20 [History] Triamterene/Hydrochlorothiazid [Triamterene-Hctz 75-50 mg Tab] 1 tab PO DAILY 02/21/20 [History] Clonidine HCl 0.1 mg [Clonidine 0.1 mg Tablet] 0.2 mg PO DAILY 03/07/22 [History] Glyburide 5 mg [Micronase 5 MG] 5 mg PO BID 03/07/22 [History] Lisinopril 5 mg [Zestril 5 MG] 10 mg PO DAILY 03/07/22 [History] Simvastatin 20Mg [Zocor 20Mg] 20 mg PO DAILY 03/07/22 [History] Buprenorphine HCl/Naloxone HCl [Buprenorphine-Nalox 8-2 mg Tab] 1.5 tablet PO DAILY 07/01/22 [History] Lorazepam 0.5 mg [Ativan 0.5 MG] 0.25 mg PO TID 07/01/22 [History] Meloxicam 15 mg [Meloxicam 15 MG] 15 mg PO BID 07/01/22 [History] Omeprazole [Prilosec] 40 mg PO DAILY 07/01/22 [History] Hx Tetanus, Diphtheria Vaccination/Date Given: Yes Hx Influenza Vaccination/Date Given: Yes Hx Pneumococcal Vaccination/Date Given: Yes Immunizations Up to Date: Yes Travel Risk - International Travel Have you traveled outside of the country in past 3 weeks: No - Emerging Infectious Disease Are you exhibiting symptoms associated with any current EIDs: No - Review of Systems Constitutional: Chills, No Fever Respiratory: Cough, Wheezing, No Dyspnea, No Stridor Cardiac: No Chest Pain, No Edema Abdominal/Gastrointestinal: Abdominal Pain, Nausea, Vomiting, Diarrhea, No Constipation, No Hematemesis, No Hematochezia Genitourinary Symptoms: No Dysuria, No Frequency - Past Medical History Pertinent Past Medical History: Yes Neurological History: Seizures ENT History: No Pertinent History Cardiac History: Hypertension Respiratory History: No Pertinent History Endocrine Medical History: Diabetes Type II Musculoskeletal History: No Pertinent History GI Medical History: GERD History: Other Psycho-Social History: Anxiety, Bipolar, Depression Female Reproductive Disorders: Other Other Medical History: freq uti's, - Past Surgical History Past Surgical History: Yes Neuro Surgical History: No Pertinent History Cardiac: No Pertinent History Respiratory: No Pertinent History Gastrointestinal: No Pertinent History Genitourinary: No Pertinent History Musculoskeletal: No Pertinent History Female Surgical History: Tubal Ligation Other Surgical History: lump removed left breast 2005. leep procedure - Female History Hx Last Menstrual Period: menopausa Hx Now: No - Social History Smoking Status: Current every day smoker How long have you smoked: 33 years Exposure to second hand smoke: Yes Drug Use: none - Social Determinants of Health Will the patient participate in the screening: Yes Do you worry about a steady place to live?: No Do you have any problems with any of the following?: No known problems In the past 12 months,have you had to go without utilities?: No Transportation Issues: No Has anyone in your support network made you feel unsafe?: No Have you or anyone in your house had to go w/o enough food: No - Nursing Vital Signs Nursing Vital Signs: Initial Vital Signs Pulse Rate 104 H 01/04/25 07:42 Respiratory Rate 25 H 01/04/25 07:42 Blood Pressure 181/102 01/04/25 07:42 O2 Sat by Pulse Oximetry 94 L 01/04/25 07:42 Pain Scale Pain Intensity 0 - Physical Exam General Appearance: no apparent distress, alert Respiratory Exam: airway intact, rhonchi (diffuse), wheezing (b/l and diffuse), No chest tenderness, No respiratory distress, No prolonged expirations, No crackles/rales, No stridor Cardiovascular Exam: normal heart sounds, normal peripheral pulses, tachycardia Gastrointestinal/Abdomen Exam: soft, normal bowel sounds, No tenderness, No distention, No guarding, No rebound Skin Exam: normal color, warm, dry SpO2 Interpretation: normal SpO2: 96 O2 Delivery: Room Air - Course EKG Interpreted by Me: RATE ([id number]), Sinus Tach, Non-specific ST Changes (not suggestive of acute ischemia) Ordered Tests: Active Orders 24 hr Category Date Time Status EKG-ER Only STAT Care 01/04/25 07:59 Active POCT Glucose Check ONCE Care 01/04/25 07:59 Active ABDOMEN AND PELVIS W/0 CONTRAS [CT] Stat Exams 01/04/25 09:09 Completed CHEST 1 VIEW (PORTABLE) Stat Exams 01/04/25 07:59 Taken CHEST WITH CONTRAST [CT] Stat Exams 01/04/25 09:10 Completed CBC W DIFF Stat Lab 01/04/25 08:22 Completed CMP Stat Lab 01/04/25 08:22 Completed CULTURE,URINE Stat Lab 01/04/25 08:09 Received D-DIMER QUANTITATIVE Stat Lab 01/04/25 08:12 Completed HCG QUALITATIVE, URINE Stat Lab 01/04/25 08:09 Completed LIPASE Stat Lab 01/04/25 08:22 Completed Lactic Acid Urgent Lab 01/04/25 07:59 Completed TROPONIN Q4H Lab 01/04/25 08:22 Completed TROPONIN Q4H Lab 01/04/25 12:08 Received TROPONIN Q4H Lab 01/04/25 16:15 Ordered UA W/RFX UR CULTURE Stat Lab 01/04/25 08:09 Completed Urine Triage Profile Stat Lab 01/04/25 08:09 Completed VENOUS BLOOD GAS Urgent Lab 01/04/25 07:59 Completed Respiratory Therapy Assessment DAILY RT 01/04/25 08:39 Active Medication Summary Discontinued Medications Generic Name Dose Route Start Last Admin Trade Name Freq PRN Reason Stop Dose Admin Albuterol/Ipratropium 3 ml 01/04/25 08:00 01/04/25 08:20 Ipratropium/Albuterol Sulfate 3 Ml Ampul.Neb IH 01/04/25 08:01 3 ml STAT ONE Administration Albuterol/Ipratropium Confirm 01/04/25 08:08 Ipratropium/Albuterol Sulfate 3 Ml Ampul.Neb Administered 01/04/25 08:09 Dose 3 ml IH .STK-MED ONE Diphenhydramine HCl 25 mg 01/04/25 08:58 01/04/25 09:10 Diphenhydramine Hcl 50 Mg/Ml Vial IV 01/04/25 08:59 25 mg STAT ONE Administration Diphenhydramine HCl Confirm 01/04/25 09:09 Diphenhydramine Hcl 50 Mg/Ml Vial Administered 01/04/25 09:10 Dose 50 mg .ROUTE .STK-MED ONE Diphenhydramine HCl 25 mg 01/04/25 11:01 01/04/25 11:09 Diphenhydramine Hcl 50 Mg/Ml Vial IV 01/04/25 11:02 25 mg STAT ONE Administration Diphenhydramine HCl Confirm 01/04/25 11:05 Diphenhydramine Hcl 50 Mg/Ml Vial Administered 01/04/25 11:06 Dose 50 mg .ROUTE .STK-MED ONE Sodium Chloride 1,000 mls @ 999 mls/hr 01/04/25 07:59 01/04/25 09:10 Sodium Chloride 0.9% 1000 Ml IV 01/04/25 08:59 Infused .Q1H1M STA Infusion Sodium Chloride Confirm 01/04/25 08:06 Sodium Chloride 0.9% 1000 Ml Administered 01/04/25 08:07 Dose 1,000 mls @ ud .ROUTE .STK-MED ONE Ondansetron HCl 4 mg 01/04/25 07:59 01/04/25 08:07 Ondansetron Hcl 4 Mg/2 Ml Vial IV 01/04/25 08:00 4 mg STAT ONE Administration Ondansetron HCl Confirm 01/04/25 08:06 Ondansetron Hcl 4 Mg/2 Ml Vial Administered 01/04/25 08:07 Dose 4 mg .ROUTE .STK-MED ONE Lab/Rad Data: Laboratory Result Diagrams 01/04/25 08:22 01/04/25 08:22 Laboratory Results 01/04/25 01/04/25 01/04/25 Range/Units 08:22 08:22 08:22 WBC 11.0 H (3.98-10.04) x10^3/uL RBC 5.11 (3.93-5.22) x10^6/uL Hgb 16.0 H (11.2-15.7) g/dL Hct 46.3 H (34.1-44.9) % MCV 90.6 (79.4-94.8) fL MCH 31.3 (25.6-32.2) pg MCHC 34.6 (32.2-35.5) g/dL RDW 11.8 (11.7-14.4) % Plt Count 278 (182-369) x10^3/uL MPV 10.7 (9.4-12.3) fL Gran % 86.4 H (34.0-71.1) % Immature Gran % (Auto) 0.5 H (0.001-0.429) % Nucleat RBC Rel Count 0.0 (0.00-0.2) % Eos # (Auto) 0 L (0.04-0.36) x10^3/uL Immature Gran # (Auto) 0.06 H (0.001-0.031) x10^3u/L Absolute Lymphs (auto) 0.68 L (1.18-3.74) x10^3/uL Absolute Monos (auto) 0.75 (0.24-0.86) x10^3/uL Absolute Nucleated RBC 0.00 (0.00-0.012) x10^3u/L Lymphocytes % 6.2 L (19.3-51.7) % Monocytes % 6.8 (4.7-12.5) % Eosinophils % 0.0 L (0.7-5.8) % Basophils % 0.1 (0.1-1.2) % Absolute Granulocytes 9.51 H (1.56-6.13) x10^3/uL Basophils # 0.01 (0.01-0.08) x10^3/uL D-Dimer (0.0-0.50) mg/L pO2/FiO2 Ratio % VBG pH (7.32-7.42) VBG pCO2 at Pat Temp (42-55) mm/Hg VBG pO2 at Pat Temp (25-40) mm/Hg VBG HCO3 (22-28) meq/L VBG O2 Sat (Calvin) (95-100) VBG Base Excess (-2.0-2.0) VBG Hemoglobin VBG Carboxyhemoglobin (0.0-6.9) % T HGB POC Potassium (3.5-5.1) Sodium 138 (135-145) mmol/L Potassium 3.3 L (3.5-5.1) mmol/L Chloride 93 L (98-107) mmol/L Carbon Dioxide 27 (22-30) mmol/L Anion Gap 21.1 H (5-15) MEQ/L BUN 12 (7-17) mg/dL Creatinine 0.46 L (0.52-1.04) mg/dL Estimated GFR 115.1 ML/MIN Glucose 214 H (74-106) mg/dL Lactic Acid (0.4-2.0) Calcium 9.1 (8.4-10.2) mg/dL Total Bilirubin 0.90 (0.2-1.3) mg/dL AST 36 (14-36) U/L ALT 21 (0-35) U/L Alkaline Phosphatase 124 (38-126) U/L Troponin I < 0.012 (0.000-0.033) ng/mL Serum Total Protein 6.9 (6.3-8.2) g/dL Albumin 4.2 (3.5-5.0) g/dL Lipase 155 (23-300) U/L Urine Color (Yellow) Urine Appearance (Clear) Urine pH (4.6-8.0) Ur Specific [place] (1.005-1.030) Urine Protein (Negative) Urine Glucose (UA) (Negative) mg/dL Urine Ketones (Negative) Urine Blood (Negative) Urine Nitrite (Negative) Urine Bilirubin (Negative) Urine Urobilinogen (0.2) mg/dL Ur Leukocyte Esterase (Negative) U Hyaline Cast (Auto) (0-2) /LPF Urine Microscopic RBC (0-5) /HPF Urine Microscopic WBC (0-5) /HPF Ur Epithelial Cells (None Seen) /HPF Urine Bacteria (None Seen) /HPF Urine Culture Reflexed (NO) Urine HCG, Qual (NEGATIVE) Urine Opiates Level (NEGATIVE) Ur Methadone (NEGATIVE) Urine Barbiturates (NEGATIVE) Ur Phencyclidine (PCP) (NEGATIVE) Urine Amphetamine (NEGATIVE) U Benzodiazepine Level (NEGATIVE) Urine Cocaine (NEGATIVE) Urine Marijuana (THC) (NEGATIVE) Influenza Type A Ag (NEGATIVE) Influenza Type B Ag (NEGATIVE) RSV (PCR) (NEGATIVE) SARS-CoV-2 (PCR) (NEGATIVE) 01/04/25 01/04/25 01/04/25 Range/Units 08:14 08:12 08:09 WBC (3.98-10.04) x10^3/uL RBC (3.93-5.22) x10^6/uL Hgb (11.2-15.7) g/dL Hct (34.1-44.9) % MCV (79.4-94.8) fL MCH (25.6-32.2) pg MCHC (32.2-35.5) g/dL RDW (11.7-14.4) % Plt Count (182-369) x10^3/uL MPV (9.4-12.3) fL Gran % (34.0-71.1) % Immature Gran % (Auto) (0.001-0.429) % Nucleat RBC Rel Count (0.00-0.2) % Eos # (Auto) (0.04-0.36) x10^3/uL Immature Gran # (Auto) (0.001-0.031) x10^3u/L Absolute Lymphs (auto) (1.18-3.74) x10^3/uL Absolute Monos (auto) (0.24-0.86) x10^3/uL Absolute Nucleated RBC (0.00-0.012) x10^3u/L Lymphocytes % (19.3-51.7) % Monocytes % (4.7-12.5) % Eosinophils % (0.7-5.8) % Basophils % (0.1-1.2) % Absolute Granulocytes (1.56-6.13) x10^3/uL Basophils # (0.01-0.08) x10^3/uL D-Dimer 1.01 H* (0.0-0.50) mg/L pO2/FiO2 Ratio % VBG pH (7.32-7.42) VBG pCO2 at Pat Temp (42-55) mm/Hg VBG pO2 at Pat Temp (25-40) mm/Hg VBG HCO3 (22-28) meq/L VBG O2 Sat (Calvin) (95-100) VBG Base Excess (-2.0-2.0) VBG Hemoglobin VBG Carboxyhemoglobin (0.0-6.9) % T HGB POC Potassium (3.5-5.1) Sodium (135-145) mmol/L Potassium (3.5-5.1) mmol/L Chloride (98-107) mmol/L Carbon Dioxide (22-30) mmol/L Anion Gap (5-15) MEQ/L BUN (7-17) mg/dL Creatinine (0.52-1.04) mg/dL Estimated GFR ML/MIN Glucose (74-106) mg/dL Lactic Acid (0.4-2.0) Calcium (8.4-10.2) mg/dL Total Bilirubin (0.2-1.3) mg/dL AST (14-36) U/L ALT (0-35) U/L Alkaline Phosphatase (38-126) U/L Troponin I (0.000-0.033) ng/mL Serum Total Protein (6.3-8.2) g/dL Albumin (3.5-5.0) g/dL Lipase (23-300) U/L Urine Color (Yellow) Urine Appearance (Clear) Urine pH (4.6-8.0) Ur Specific [place] (1.005-1.030) Urine Protein (Negative) Urine Glucose (UA) (Negative) mg/dL Urine Ketones (Negative) Urine Blood (Negative) Urine Nitrite (Negative) Urine Bilirubin (Negative) Urine Urobilinogen (0.2) mg/dL Ur Leukocyte Esterase (Negative) U Hyaline Cast (Auto) (0-2) /LPF Urine Microscopic RBC (0-5) /HPF Urine Microscopic WBC (0-5) /HPF Ur Epithelial Cells (None Seen) /HPF Urine Bacteria (None Seen) /HPF Urine Culture Reflexed (NO) Urine HCG, Qual (NEGATIVE) Urine Opiates Level NEGATIVE (NEGATIVE) Ur Methadone NEGATIVE (NEGATIVE) Urine Barbiturates NEGATIVE (NEGATIVE) Ur Phencyclidine (PCP) NEGATIVE (NEGATIVE) Urine Amphetamine NEGATIVE (NEGATIVE) U Benzodiazepine Level NEGATIVE (NEGATIVE) Urine Cocaine NEGATIVE (NEGATIVE) Urine Marijuana (THC) POSITIVE A (NEGATIVE) Influenza Type A Ag POSITIVE A (NEGATIVE) Influenza Type B Ag NEGATIVE (NEGATIVE) RSV (PCR) NEGATIVE (NEGATIVE) SARS-CoV-2 (PCR) NEGATIVE (NEGATIVE) 01/04/25 01/04/25 01/04/25 Range/Units 08:09 08:09 07:59 WBC (3.98-10.04) x10^3/uL RBC (3.93-5.22) x10^6/uL Hgb (11.2-15.7) g/dL Hct (34.1-44.9) % MCV (79.4-94.8) fL MCH (25.6-32.2) pg MCHC (32.2-35.5) g/dL RDW (11.7-14.4) % Plt Count (182-369) x10^3/uL MPV (9.4-12.3) fL Gran % (34.0-71.1) % Immature Gran % (Auto) (0.001-0.429) % Nucleat RBC Rel Count (0.00-0.2) % Eos # (Auto) (0.04-0.36) x10^3/uL Immature Gran # (Auto) (0.001-0.031) x10^3u/L Absolute Lymphs (auto) (1.18-3.74) x10^3/uL Absolute Monos (auto) (0.24-0.86) x10^3/uL Absolute Nucleated RBC (0.00-0.012) x10^3u/L Lymphocytes % (19.3-51.7) % Monocytes % (4.7-12.5) % Eosinophils % (0.7-5.8) % Basophils % (0.1-1.2) % Absolute Granulocytes (1.56-6.13) x10^3/uL Basophils # (0.01-0.08) x10^3/uL D-Dimer (0.0-0.50) mg/L pO2/FiO2 Ratio 21.0 % VBG pH 7.68 H* (7.32-7.42) VBG pCO2 at Pat Temp 20 L* (42-55) mm/Hg VBG pO2 at Pat Temp 167 H (25-40) mm/Hg VBG HCO3 23.6 (22-28) meq/L VBG O2 Sat (Calvin) 98.9 (95-100) VBG Base Excess 5.9 H (-2.0-2.0) VBG Hemoglobin 17.1 VBG Carboxyhemoglobin 9.3 H* (0.0-6.9) % T HGB POC Potassium 3.2 L (3.5-5.1) Sodium (135-145) mmol/L Potassium (3.5-5.1) mmol/L Chloride (98-107) mmol/L Carbon Dioxide (22-30) mmol/L Anion Gap (5-15) MEQ/L BUN (7-17) mg/dL Creatinine (0.52-1.04) mg/dL Estimated GFR ML/MIN Glucose (74-106) mg/dL Lactic Acid 1.4 (0.4-2.0) Calcium (8.4-10.2) mg/dL Total Bilirubin (0.2-1.3) mg/dL AST (14-36) U/L ALT (0-35) U/L Alkaline Phosphatase (38-126) U/L Troponin I (0.000-0.033) ng/mL Serum Total Protein (6.3-8.2) g/dL Albumin (3.5-5.0) g/dL Lipase (23-300) U/L Urine Color Yellow (Yellow) Urine Appearance Clear (Clear) Urine pH 6.0 (4.6-8.0) Ur Specific [place] >=1.030 A (1.005-1.030) Urine Protein 300 A (Negative) Urine Glucose (UA) 100 A (Negative) mg/dL Urine Ketones >=160 A (Negative) Urine Blood Moderate A (Negative) Urine Nitrite Negative (Negative) Urine Bilirubin Negative (Negative) Urine Urobilinogen 1.0 A (0.2) mg/dL Ur Leukocyte Esterase Negative (Negative) U Hyaline Cast (Auto) NONE SEEN (0-2) /LPF Urine Microscopic RBC 21-50 A (0-5) /HPF Urine Microscopic WBC 0-2 (0-5) /HPF Ur Epithelial Cells Moderate A (None Seen) /HPF Urine Bacteria None Seen (None Seen) /HPF Urine Culture Reflexed YES (NO) Urine HCG, Qual NEGATIVE (NEGATIVE) Urine Opiates Level (NEGATIVE) Ur Methadone (NEGATIVE) Urine Barbiturates (NEGATIVE) Ur Phencyclidine (PCP) (NEGATIVE) Urine Amphetamine (NEGATIVE) U Benzodiazepine Level (NEGATIVE) Urine Cocaine (NEGATIVE) Urine Marijuana (THC) (NEGATIVE) Influenza Type A Ag (NEGATIVE) Influenza Type B Ag (NEGATIVE) RSV (PCR) (NEGATIVE) SARS-CoV-2 (PCR) (NEGATIVE) - Progress Progress: re-examined Progress Note: 01/04/25 08:47 qtcb mildly prolonged at 490 - 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 The study is negative for pulmonary embolism. 2. Multiple tiny groundglass opacity scattered both lungs some of them show tree-in-bud appearance. Findings are suggestive of endobronchial infection on top of possible hypersensitivity pneumonitis. Clinical correlation is advised. New findings. 3. Small subpleural patchy areas of groundglass opacity noted in both upper lung lobes suggesting atypical infection. New findings. 4. Right breast rounded nodule noted at retroareolar region measuring 10x 11 mm, further sonomammography is advised. CT abd/pel showed 1. No detected urothelial stones. 2. Splenic and hepatic calcifications suggesting old granulomas. 3. No acute abdominal abnormality. 4. No interval changes. all results discussed w/ patient 01/04/25 11:54 01/04/25 12:18 I spoke w/ Dr Pratt (hospitalist) who is willing to accept pt for obs will start azithromycin and continue maintenance fluids Will see patient in: hospital (observation) Counseled pt/family regarding: lab results, diagnosis, need for follow-up, rad results Medical Desision Making - Diagnostic Testing Diagnostic test were ordered, analyzed, and reviewed by me: Yes Radiological Interpretation: Interpreted by me, Reviewed by me, Teleradiologist Report - Risk of complications The pt has a high risk of morbidity or mortality based on: Decision regarding hospitilization or escalation of hosp level of care - Departure Departure Disposition: Observation Clinical Impression: Influenza A, Atypical pneumonia Vomiting Qualifiers: Vomiting type: unspecified Nausea presence: with nausea Qualified Code(s): R11.2 - Nausea with vomiting, unspecified Hematuria Qualifiers: Hematuria type: unspecified type Qualified Code(s): R31.9 - Hematuria, unspecified Breast mass Qualifiers: Laterality: right Breast mass location: unspecified quadrant Qualified Code(s): N63.10 - Unspecified lump in the right breast, unspecified quadrant Condition: Stable Critical Care Time: No Referrals: ELOY SUGGS [Primary Care Provider] - Follow up/PCP as directed
[2025-01-04] MEDS: Sodium Chloride 0.9% 1000 ML 1,000 ML IV STA (08:07)
[2025-01-04] MEDS: Zofran 4 MG/2 ML VIAL IV ONE (08:07)
[2025-01-04] MEDS ORDERED: DUONEB 0.5-3 MG/3 ml Neb IH ONE (08:08)
[2025-01-04] MEDS: DUONEB 0.5-3 MG/3 ml Neb IH ONE (08:20)
[2025-01-04 08:31] LABS: Lactic Acid 1.4 (0.4-2.0); VBG BASE EXCESS 5.9 (-2.0-2.0); VBG HCO3- 23.6 meq/L (22-28); VBG HEMOGLOBIN 17.1; VBG O2 SATURATION 98.9 (95-100); VBG POTASSIUM 3.2 (3.5-5.1)
[2025-01-04 08:32] LABS: VBG CARBOXYHEMOGLOBIN 9.3 % T HGB (0.0-6.9); VBG pH 7.68 (7.32-7.42)
[2025-01-04 08:39] LABS: Appearance Clear (Clear); Bacteria None Seen /HPF (None Seen); Bilirubin Negative (Negative); Blood Moderate (Negative); Epithelial Cells Moderate /HPF (None Seen); Glucose, Urine 100 mg/dL (Negative); Hyaline Casts NONE SEEN /LPF (0-2); Ketones >=160 (Negative); Leukocyte Esterase Negative (Negative); Nitrite Negative (Negative); Protein,Urine Dip 300 (Negative); RBC 21-50 /HPF (0-5); Specific Gravity >=1.030 (1.005-1.030); WBC 0-2 /HPF (0-5)
[2025-01-04 08:41] LABS: ALBUMIN 4.2 g/dL (3.5-5.0); ANION GAP 21.1 MEQ/L (5-15); BILIRUBIN,TOTAL 0.9 mg/dL (0.2-1.3); Calcium 9.1 mg/dL (8.4-10.2); Creatinine 1 0.46 mg/dL (0.52-1.04); EST GLOMERULAR FILTRATION RATE 115.1 ML/MIN; Potassium 3.3 mmol/L (3.5-5.1); Total Protein 6.9 g/dL (6.3-8.2)
[2025-01-04 08:43] LABS: Absolute Neutrophil Ct (ANC) 9.51 x10^3/uL (1.56-6.13); BASOPHIL % 0.1 % (0.1-1.2); Basophil (Absolute #) 0.01 x10^3/uL (0.01-0.08); Eosinophil (Absolute #) 0 x10^3/uL (0.04-0.36); Hematocrit 46.3 % (34.1-44.9); IMMATURE GRAN # 0.06 x10^3u/L (0.001-0.031); IMMATURE GRAN % 0.5 % (0.001-0.429); Lymphocyte (Absolute #) 0.68 x10^3/uL (1.18-3.74); Lymphocytes % 6.2 % (19.3-51.7); Mean Cell Volume 90.6 fL (79.4-94.8); Mean Corpuscular Hemoglobin 31.3 pg (25.6-32.2); Mean Corpuscular Hgb Concent. 34.6 g/dL (32.2-35.5); Mean Platelet Volume 10.7 fL (9.4-12.3); Monocyte (Absolute #) 0.75 x10^3/uL (0.24-0.86); Monocytes % 6.8 % (4.7-12.5); Neutrophil % 86.4 % (34.0-71.1); Platelet Count 278 x10^3/uL (182-369); Red Blood Count 5.11 x10^6/uL (3.93-5.22); Red Cell Distribution Width 11.8 % (11.7-14.4)
[2025-01-04 08:51] LABS: Amphetamine,Urine NEGATIVE (NEGATIVE); Barbiturate,Urine NEGATIVE (NEGATIVE); Benzodiazepine,Urine NEGATIVE (NEGATIVE); Cocaine,Urine NEGATIVE (NEGATIVE); Methadone,Urine NEGATIVE (NEGATIVE); Opiate,Urine NEGATIVE (NEGATIVE); PCP,Urine NEGATIVE (NEGATIVE); THC,Urine POSITIVE (NEGATIVE)
[2025-01-04 08:53] LABS: HCG URINE TEST NEGATIVE (NEGATIVE)
[2025-01-04 09:02] LABS: INFLUENZA B NEGATIVE (NEGATIVE); RESPIRATORY SYNCTIAL VIRUS NEGATIVE (NEGATIVE); SARS-CoV-2 Xpert Express NEGATIVE (NEGATIVE)
[2025-01-04 09:03] LABS: INFLUENZA A POSITIVE (NEGATIVE)
[2025-01-04] MEDS ORDERED: BENADRYL 50 MG/ML ONE ×2 (09:09→11:05)
[2025-01-04] MEDS: BENADRYL 50 MG/ML IV ONE ×2 (09:10→11:09)
[2025-01-04] MEDS ORDERED: HOLD METFORMIN PRODUCTS FOR 48 HOURS MC SCH (10:30)
--- NOTE | 2025-01-04 11:32 | XRAY ---
CLINICAL HISTORY: tachypnea, hypoxia, PE protocol COMPARISON: 12/24/2023 CT low dose. TECHNIQUE: Contiguous 3.[address] images of the chest were acquired with administration of 80ml Isovue-370mg/ml intravenous contrast. Coronal and sagittal reconstructions were obtained. One of the following dose reduction techniques were utilized for this exam: Automated exposure control, adjustment of the mA and/or kV according to patient size, and use of iterative reconstruction FINDINGS: Lungs: No evidence of consolidation, collapse. Multiple tiny groundglass opacity nodules measuring up to 7 mm noted scattered both lungs some of them show tree-in-bud appearance seen mainly at the lingula and the left lower lung lobe. Findings suggestive of endobronchial infection on top of hypersensitivity pneumonitis. Clinical correlation is advised Small subpleural patchy areas of groundglass opacity noted in both upper lung lobes suggesting atypical infectionNo pleural effusion or pleural thickening. Mediastinum: No mediastinal mass or abnormal lymphadenopathy. Normal appearance of the thymus. Hilar Structures: Normal size and configuration, no enlargement. Heart and Great Vessels: Normal heart size and configuration. No pericardial effusion. Normal caliber and course of the thoracic aorta and other great vessels. No significant atherosclerosis or aneurysm. Normal enhancement of the great vessels post-contrast. Pulmonary Arteries: No evidence of pulmonary embolism. Normal size and course of the pulmonary arteries. Esophagus: Normal course and caliber. No masses or dilatation. Bones: No fractures or lytic/sclerotic lesions. Normal bone density and alignment. No evidence of rib fractures. Chest Wall: Right breast rounded nodule noted at retroareolar region measuring 10x 11 mm, further sonomammography is advised. Upper Abdomen: Visualized portions of the liver, spleen, pancreas, adrenal glands, and kidneys are normal. No abnormalities noted in the visualized upper abdominal organs. Thyroid: Normal size and morphology. No nodules or masses. IMPRESSION: 1. The study is negative for pulmonary embolism. 2. Multiple tiny groundglass opacity scattered both lungs some of them show tree-in-bud appearance. Findings are suggestive of endobronchial infection on top of possible hypersensitivity pneumonitis. Clinical correlation is advised. New findings. 3. Small subpleural patchy areas of groundglass opacity noted in both upper lung lobes suggesting atypical infection. New findings. 4. Right breast rounded nodule noted at retroareolar region measuring 10x 11 mm, further sonomammography is advised. Electronically Signed by: Madalyn Shi MD. (01/04/2025 11:28:49 EDT)
--- NOTE | 2025-01-04 11:34 | XRAY ---
CLINICAL HISTORY: abdominal pain COMPARISON: 02/20/2020 CT. TECHNIQUE: CT of the abdomen and pelvis was performed, with the following protocol: axial images, and reconstructed coronal and sagittal images. No intravenous contrast was administered. One of the following dose reduction techniques was utilized for this exam: Automated exposure control, adjustment of the mA and/or kV according to patient size, and use of iterative reconstruction. FINDINGS: Abdomen: Tiny groundglass opacity nodules seen scattered at both lung bases. Further details in the CT chest done on the same day. Liver: Normal in size, shape, and density. No focal lesions, cysts, or masses were identified. Few hepatic foci of calcifications suggesting old granulomas Gallbladder and Biliary System: The gallbladder is normal in size and shape. No wall thickening, pericholecystic fluid, or gallstones were identified. Pancreas: Pancreatic head, body, and tail are visualized and appear normal in size and density. No pancreatic masses or calcifications were noted. Spleen: Normal in size, shape, and density. No splenic lesions or masses were identified. Multiple foci of calcifications noted within the spleen suggesting old granulomatous infection Kidneys and Adrenal Glands: Both kidneys are normal in size, shape, and position. Cortical thickness is within normal limits. No renal calculi or hydronephrosis. Adrenal glands are unremarkable. Appendix: The appendix is not seen Pelvis: Urinary Bladder: Normal in contour and wall thickness. No intraluminal lesions. Uterus: Normal in size and contour. No masses or abnormal thickening. Ovaries: Not well visualized but no gross abnormalities noted. Vagina: Normal in contour and wall thickness. Cervix: No evidence of mass or abnormal thickening. Peritoneal and Retroperitoneal Structures: No free fluid or abnormal fluid collections were identified within the abdomen or pelvis. No lymphadenopathy was noted. Bowel: The visualized bowel loops are normal in caliber and appearance. No evidence of bowel obstruction or wall thickening. Bones and Soft Tissues: Pelvic bones and soft tissues are unremarkable. No fractures or abnormal masses were identified. IMPRESSION: 1. No detected urothelial stones. 2. Splenic and hepatic calcifications suggesting old granulomas. 3. No acute abdominal abnormality. 4. No interval changes. Electronically Signed by: Madalyn Shi MD. (01/04/2025 11:29:51 EDT)
[2025-01-04] MEDS ORDERED: VIBRAMYCIN 100 MG IV ONE (12:24)
[2025-01-04] MEDS ORDERED: D5w 100ML Mini Bag 100 ML 100 ML IV ONE (12:25)
[2025-01-04] MEDS: Sodium Chloride 0.9% 1000 ML 1,000 ML IV SCH (12:25)
[2025-01-04] MEDS: VIBRAMYCIN 100 MG*** 100 MG in D5w 100ML Mini Bag 100 ML 100 ML IV SCH (12:26)
--- NOTE | 2025-01-04 13:08 | PCM.HP ---
History of Present Illness - Chief Complaint Chief Complaint: influenza A/uti/pneumonia Date: 01/04/25 History of Present Illness: is a 54 year old female with a past medical history of type 2 diabetes mellitus, HTN, HLD, bipolar, depression,stroke (2021), and COPD presented to ED 01/04/25 with complaints of vomiting, cough, and generalized weakness since last Sunday. Last night, she experienced non-bloody, non- bilious emesis and one episode of non-bloody diarrhea, along with epigastric abdominal pain. Her blood glucose levels had been running in the upper 200s for several days, and she is not on insulin therapy. She denies fever but endorsed body aches and a non-productive cough. On arrival she met criteria for sepsis due to tachycardia, tachypnea, and findings consistent with influenza A and Atypical pneumonia. Laboratory results showed white blood cell count at 11, with lactic acid within normal limits, and hypokalemia. Urine and blood cultures are pending. Imaging revealed no acute abdominal abnormalities but showed small hazy areas in both lungs, a "tree-in-bud" pattern suggestive of an airway infection, and ground-glass opacities in the upper lungs. Additionally, a 10x11 mm rounded nodule was detected in the right breast, warranting further evaluation with ultrasound which patient states she has scheduled in February. The patient was initiated on a fluid bolus in the emergency department and continued on intravenous fluids. Admit for Sepsis secondary to FluA/Pneumonia. Plan IP treatment with ceftriaxone, Doxycycline, Tamiflu, nebulized treatments, inhalers, and supportive care. - Review of Systems Constitutional: Weakness Eyes: No Symptoms Ears, Nose, & Throat: No Symptoms Respiratory: Cough, Short Of Breath Cardiac: No Symptoms Abdominal/Gastrointestinal: Abdominal Pain, Nausea, Vomiting, Diarrhea Genitourinary Symptoms: No Symptoms Musculoskeletal: No Symptoms Skin: No Symptoms Neurological: No Symptoms Psychological: No Symptoms Endocrine: No Symptoms Hematologic/Lymphatic: No Symptoms Immunological/Allergic: No Symptoms Medications & Allergies Home Medications: Home Medication List Gabapentin 800 mg PO TID 08/15/18 [History Confirmed 07/01/22] OLANZapine [Olanzapine] 20 mg PO HS 08/15/18 [History Confirmed 07/01/22] Metformin HCl 500 mg [Glucophage 500 MG] 1,000 mg PO BIDWM 02/20/20 [History Confirmed 07/01/22] Triamterene/Hydrochlorothiazid [Triamterene-Hctz 75-50 mg Tab] 1 tab PO DAILY 02/21/20 [History Confirmed 07/01/22] Clonidine HCl 0.1 mg [Clonidine 0.1 mg Tablet] 0.2 mg PO DAILY 03/07/22 [History Confirmed 07/01/22] Glyburide 5 mg [Micronase 5 MG] 5 mg PO BID 03/07/22 [History Confirmed 07/01/22] Buprenorphine HCl/Naloxone HCl [Buprenorphine-Nalox 8-2 mg Tab] 1.5 tablet PO DAILY 07/01/22 [History Confirmed 07/01/22] ALPRAZolam 1 MG [Xanax 1 mg] 0.5 tablet PO TID 01/04/25 [History Confirmed 01/04/25] Albuterol 8 gm Mdi Hfa [Ventolin Hfa MDI] 2 puff IH Q4H PRN 01/04/25 [History Confirmed 01/04/25] Aspirin EC 81 mg [Ecotrin 81 mg] 81 mg PO DAILY 01/04/25 [History Confirmed 01/04/25] Atorvastatin Calcium [Lipitor] 20 mg PO HS 01/04/25 [History Confirmed 01/04/25] Clopidogrel Bisulfate [PLAVIX Tablet] 75 mg PO DAILY 01/04/25 [History Confirmed 01/04/25] Famotidine 20 mg [Pepcid 20 MG] 40 mg PO DAILY 01/04/25 [History Confirmed 01/04/25] Fluoxetine HCl 20 mg PO TID 01/04/25 [History Confirmed 01/04/25] Semaglutide [Ozempic] 1 mg SQ WEEKLY 01/04/25 [History Confirmed 01/04/25] Allergies/Adverse Reactions: Allergies Allergy/AdvReac Type Severity Reaction Status Date / Time NKA Allergy Mild Verified 01/04/25 07:42 - Past Medical History Past Medical History: Yes Neurological History: Seizures ENT History: No Pertinent History Cardiac History: Hypertension Respiratory History: No Pertinent History Endocrine Medical History: Diabetes Type II Musculoskelatal History: No Pertinent History GI Medical History: GERD History: Other Pyscho-Social History: Anxiety, Bipolar, Depression Reproductive Disorders: Other Comment: yuni uti's, - Female History Hx Last Menstrual Period: menopausa Are you now?: No - Past Surgical History Past Surgical History: Yes Neuro Surgical History: No Pertinent History Cardiac History: No Pertinent History Respiratory Surgery: No Pertinent History GI Surgical History: No Pertinent History Genitourinary Surgical Hx: No Pertinent History Musculskeletal Surgical Hx: No Pertinent History Female Surgical History: Tubal Ligation Other Surgical History: lump removed left breast 2004. leep procedure Significant Family History: heart disease, cancer, diabetes - Social History Smoking Status: Current every day smoker How long have you smoked: 33 years Exposure to second hand smoke: Yes Alcohol: None Drug Use: none - Social Determinants of Health Will the patient participate in the screening: Yes Do you worry about a steady place to live?: No Do you have any problems with any of the following?: No known problems In the past 12 months,have you had to go without utilities?: No Have you or anyone in your house had to go without enough: No Transportation Issues: No Has anyone in your support network made you feel unsafe?: No - Physical Exam Vital Signs: Vital Signs - 24 hr Pulse Resp BP BP Pulse Ox 01/04/25 12:22 96 01/04/25 12:00 101 H 23 169/114 95 01/04/25 11:30 97 H 16 180/116 96 01/04/25 11:00 96 H 18 180/114 98 01/04/25 10:50 97 H 18 99 01/04/25 10:40 99 H 19 99 01/04/25 10:34 100 H 27 H 99 01/04/25 10:02 99 H 01/04/25 09:30 98 H 23 189/106 97 01/04/25 09:00 98 H 21 180/98 98 01/04/25 08:41 102 H 15 174/110 98 01/04/25 08:40 99 H 16 93 L 01/04/25 08:00 101 H 16 158/113 94 L 01/04/25 07:42 105 H 17 181/102 181/102 94 L General Appearance: no apparent distress Neurologic Exam: alert, oriented x 3, cooperative Eye Exam: PERRL/EOMI Ears, Nose, Throat Exam: normal ENT inspection Neck Exam: normal inspection Respiratory Exam: diminished breath sounds Cardiovascular Exam: tachycardia Gastrointestinal/Abdomen Exam: soft, normal bowel sounds Pelvic Exam: not done Rectal Exam: deferred Back Exam: normal inspection Extremity Exam: normal inspection Skin Exam: normal color Results - Labs Lab/Micro Results: Lab Results-Last 24 Hours 01/04/25 01/04/25 01/04/25 Range/Units 07:59 08:09 08:09 WBC (3.98-10.04) x10^3/uL RBC (3.93-5.22) x10^6/uL Hgb (11.2-15.7) g/dL Hct (34.1-44.9) % MCV (79.4-94.8) fL MCH (25.6-32.2) pg MCHC (32.2-35.5) g/dL RDW (11.7-14.4) % Plt Count (182-369) x10^3/uL MPV (9.4-12.3) fL Gran % (34.0-71.1) % Immature Gran % (Auto) (0.001-0.429) % Nucleat RBC Rel Count (0.00-0.2) % Eos # (Auto) (0.04-0.36) x10^3/uL Immature Gran # (Auto) (0.001-0.031) x10^3u/L Absolute Lymphs (auto) (1.18-3.74) x10^3/uL Absolute Monos (auto) (0.24-0.86) x10^3/uL Absolute Nucleated RBC (0.00-0.012) x10^3u/L Lymphocytes % (19.3-51.7) % Monocytes % (4.7-12.5) % Eosinophils % (0.7-5.8) % Basophils % (0.1-1.2) % Absolute Granulocytes (1.56-6.13) x10^3/uL Basophils # (0.01-0.08) x10^3/uL D-Dimer (0.0-0.50) mg/L pO2/FiO2 Ratio 21.0 % VBG pH 7.68 H* (7.32-7.42) VBG pCO2 at Pat Temp 20 L* (42-55) mm/Hg VBG pO2 at Pat Temp 167 H (25-40) mm/Hg VBG HCO3 23.6 (22-28) meq/L VBG O2 Sat (Calvin) 98.9 (95-100) VBG Base Excess 5.9 H (-2.0-2.0) VBG Hemoglobin 17.1 VBG Carboxyhemoglobin 9.3 H* (0.0-6.9) % T HGB POC Potassium 3.2 L (3.5-5.1) Sodium (135-145) mmol/L Potassium (3.5-5.1) mmol/L Chloride (98-107) mmol/L Carbon Dioxide (22-30) mmol/L Anion Gap (5-15) MEQ/L BUN (7-17) mg/dL Creatinine (0.52-1.04) mg/dL Estimated GFR ML/MIN Glucose (74-106) mg/dL Lactic Acid 1.4 (0.4-2.0) Calcium (8.4-10.2) mg/dL Total Bilirubin (0.2-1.3) mg/dL AST (14-36) U/L ALT (0-35) U/L Alkaline Phosphatase (38-126) U/L Troponin I (0.000-0.033) ng/mL Serum Total Protein (6.3-8.2) g/dL Albumin (3.5-5.0) g/dL Lipase (23-300) U/L Urine Color Yellow (Yellow) Urine Appearance Clear (Clear) Urine pH 6.0 (4.6-8.0) Ur Specific Hardy >=1.030 A (1.005-1.030) Urine Protein 300 A (Negative) Urine Glucose (UA) 100 A (Negative) mg/dL Urine Ketones >=160 A (Negative) Urine Blood Moderate A (Negative) Urine Nitrite Negative (Negative) Urine Bilirubin Negative (Negative) Urine Urobilinogen 1.0 A (0.2) mg/dL Ur Leukocyte Esterase Negative (Negative) U Hyaline Cast (Auto) NONE SEEN (0-2) /LPF Urine Microscopic RBC 21-50 A (0-5) /HPF Urine Microscopic WBC 0-2 (0-5) /HPF Ur Epithelial Cells Moderate A (None Seen) /HPF Urine Bacteria None Seen (None Seen) /HPF Urine Culture Reflexed YES (NO) Urine HCG, Qual NEGATIVE (NEGATIVE) Urine Opiates Level (NEGATIVE) Ur Methadone (NEGATIVE) Urine Barbiturates (NEGATIVE) Ur Phencyclidine (PCP) (NEGATIVE) Urine Amphetamine (NEGATIVE) U Benzodiazepine Level (NEGATIVE) Urine Cocaine (NEGATIVE) Urine Marijuana (THC) (NEGATIVE) Influenza Type A Ag (NEGATIVE) Influenza Type B Ag (NEGATIVE) RSV (PCR) (NEGATIVE) SARS-CoV-2 (PCR) (NEGATIVE) 01/04/25 01/04/25 01/04/25 Range/Units 08:09 08:12 08:14 WBC (3.98-10.04) x10^3/uL RBC (3.93-5.22) x10^6/uL Hgb (11.2-15.7) g/dL Hct (34.1-44.9) % MCV (79.4-94.8) fL MCH (25.6-32.2) pg MCHC (32.2-35.5) g/dL RDW (11.7-14.4) % Plt Count (182-369) x10^3/uL MPV (9.4-12.3) fL Gran % (34.0-71.1) % Immature Gran % (Auto) (0.001-0.429) % Nucleat RBC Rel Count (0.00-0.2) % Eos # (Auto) (0.04-0.36) x10^3/uL Immature Gran # (Auto) (0.001-0.031) x10^3u/L Absolute Lymphs (auto) (1.18-3.74) x10^3/uL Absolute Monos (auto) (0.24-0.86) x10^3/uL Absolute Nucleated RBC (0.00-0.012) x10^3u/L Lymphocytes % (19.3-51.7) % Monocytes % (4.7-12.5) % Eosinophils % (0.7-5.8) % Basophils % (0.1-1.2) % Absolute Granulocytes (1.56-6.13) x10^3/uL Basophils # (0.01-0.08) x10^3/uL D-Dimer 1.01 H* (0.0-0.50) mg/L pO2/FiO2 Ratio % VBG pH (7.32-7.42) VBG pCO2 at Pat Temp (42-55) mm/Hg VBG pO2 at Pat Temp (25-40) mm/Hg VBG HCO3 (22-28) meq/L VBG O2 Sat (Calvin) (95-100) VBG Base Excess (-2.0-2.0) VBG Hemoglobin VBG Carboxyhemoglobin (0.0-6.9) % T HGB POC Potassium (3.5-5.1) Sodium (135-145) mmol/L Potassium (3.5-5.1) mmol/L Chloride (98-107) mmol/L Carbon Dioxide (22-30) mmol/L Anion Gap (5-15) MEQ/L BUN (7-17) mg/dL Creatinine (0.52-1.04) mg/dL Estimated GFR ML/MIN Glucose (74-106) mg/dL Lactic Acid (0.4-2.0) Calcium (8.4-10.2) mg/dL Total Bilirubin (0.2-1.3) mg/dL AST (14-36) U/L ALT (0-35) U/L Alkaline Phosphatase (38-126) U/L Troponin I (0.000-0.033) ng/mL Serum Total Protein (6.3-8.2) g/dL Albumin (3.5-5.0) g/dL Lipase (23-300) U/L Urine Color (Yellow) Urine Appearance (Clear) Urine pH (4.6-8.0) Ur Specific Hardy (1.005-1.030) Urine Protein (Negative) Urine Glucose (UA) (Negative) mg/dL Urine Ketones (Negative) Urine Blood (Negative) Urine Nitrite (Negative) Urine Bilirubin (Negative) Urine Urobilinogen (0.2) mg/dL Ur Leukocyte Esterase (Negative) U Hyaline Cast (Auto) (0-2) /LPF Urine Microscopic RBC (0-5) /HPF Urine Microscopic WBC (0-5) /HPF Ur Epithelial Cells (None Seen) /HPF Urine Bacteria (None Seen) /HPF Urine Culture Reflexed (NO) Urine HCG, Qual (NEGATIVE) Urine Opiates Level NEGATIVE (NEGATIVE) Ur Methadone NEGATIVE (NEGATIVE) Urine Barbiturates NEGATIVE (NEGATIVE) Ur Phencyclidine (PCP) NEGATIVE (NEGATIVE) Urine Amphetamine NEGATIVE (NEGATIVE) U Benzodiazepine Level NEGATIVE (NEGATIVE) Urine Cocaine NEGATIVE (NEGATIVE) Urine Marijuana (THC) POSITIVE A (NEGATIVE) Influenza Type A Ag POSITIVE A (NEGATIVE) Influenza Type B Ag NEGATIVE (NEGATIVE) RSV (PCR) NEGATIVE (NEGATIVE) SARS-CoV-2 (PCR) NEGATIVE (NEGATIVE) 01/04/25 01/04/25 01/04/25 Range/Units 08:22 08:22 08:22 WBC 11.0 H (3.98-10.04) x10^3/uL RBC 5.11 (3.93-5.22) x10^6/uL Hgb 16.0 H (11.2-15.7) g/dL Hct 46.3 H (34.1-44.9) % MCV 90.6 (79.4-94.8) fL MCH 31.3 (25.6-32.2) pg MCHC 34.6 (32.2-35.5) g/dL RDW 11.8 (11.7-14.4) % Plt Count 278 (182-369) x10^3/uL MPV 10.7 (9.4-12.3) fL Gran % 86.4 H (34.0-71.1) % Immature Gran % (Auto) 0.5 H (0.001-0.429) % Nucleat RBC Rel Count 0.0 (0.00-0.2) % Eos # (Auto) 0 L (0.04-0.36) x10^3/uL Immature Gran # (Auto) 0.06 H (0.001-0.031) x10^3u/L Absolute Lymphs (auto) 0.68 L (1.18-3.74) x10^3/uL Absolute Monos (auto) 0.75 (0.24-0.86) x10^3/uL Absolute Nucleated RBC 0.00 (0.00-0.012) x10^3u/L Lymphocytes % 6.2 L (19.3-51.7) % Monocytes % 6.8 (4.7-12.5) % Eosinophils % 0.0 L (0.7-5.8) % Basophils % 0.1 (0.1-1.2) % Absolute Granulocytes 9.51 H (1.56-6.13) x10^3/uL Basophils # 0.01 (0.01-0.08) x10^3/uL D-Dimer (0.0-0.50) mg/L pO2/FiO2 Ratio % VBG pH (7.32-7.42) VBG pCO2 at Pat Temp (42-55) mm/Hg VBG pO2 at Pat Temp (25-40) mm/Hg VBG HCO3 (22-28) meq/L VBG O2 Sat (Calvin) (95-100) VBG Base Excess (-2.0-2.0) VBG Hemoglobin VBG Carboxyhemoglobin (0.0-6.9) % T HGB POC Potassium (3.5-5.1) Sodium 138 (135-145) mmol/L Potassium 3.3 L (3.5-5.1) mmol/L Chloride 93 L (98-107) mmol/L Carbon Dioxide 27 (22-30) mmol/L Anion Gap 21.1 H (5-15) MEQ/L BUN 12 (7-17) mg/dL Creatinine 0.46 L (0.52-1.04) mg/dL Estimated GFR 115.1 ML/MIN Glucose 214 H (74-106) mg/dL Lactic Acid (0.4-2.0) Calcium 9.1 (8.4-10.2) mg/dL Total Bilirubin 0.90 (0.2-1.3) mg/dL AST 36 (14-36) U/L ALT 21 (0-35) U/L Alkaline Phosphatase 124 (38-126) U/L Troponin I < 0.012 (0.000-0.033) ng/mL Serum Total Protein 6.9 (6.3-8.2) g/dL Albumin 4.2 (3.5-5.0) g/dL Lipase 155 (23-300) U/L Urine Color (Yellow) Urine Appearance (Clear) Urine pH (4.6-8.0) Ur Specific Hardy (1.005-1.030) Urine Protein (Negative) Urine Glucose (UA) (Negative) mg/dL Urine Ketones (Negative) Urine Blood (Negative) Urine Nitrite (Negative) Urine Bilirubin (Negative) Urine Urobilinogen (0.2) mg/dL Ur Leukocyte Esterase (Negative) U Hyaline Cast (Auto) (0-2) /LPF Urine Microscopic RBC (0-5) /HPF Urine Microscopic WBC (0-5) /HPF Ur Epithelial Cells (None Seen) /HPF Urine Bacteria (None Seen) /HPF Urine Culture Reflexed (NO) Urine HCG, Qual (NEGATIVE) Urine Opiates Level (NEGATIVE) Ur Methadone (NEGATIVE) Urine Barbiturates (NEGATIVE) Ur Phencyclidine (PCP) (NEGATIVE) Urine Amphetamine (NEGATIVE) U Benzodiazepine Level (NEGATIVE) Urine Cocaine (NEGATIVE) Urine Marijuana (THC) (NEGATIVE) Influenza Type A Ag (NEGATIVE) Influenza Type B Ag (NEGATIVE) RSV (PCR) (NEGATIVE) SARS-CoV-2 (PCR) (NEGATIVE) 01/04/25 Range/Units 12:08 WBC (3.98-10.04) x10^3/uL RBC (3.93-5.22) x10^6/uL Hgb (11.2-15.7) g/dL Hct (34.1-44.9) % MCV (79.4-94.8) fL MCH (25.6-32.2) pg MCHC (32.2-35.5) g/dL RDW (11.7-14.4) % Plt Count (182-369) x10^3/uL MPV (9.4-12.3) fL Gran % (34.0-71.1) % Immature Gran % (Auto) (0.001-0.429) % Nucleat RBC Rel Count (0.00-0.2) % Eos # (Auto) (0.04-0.36) x10^3/uL Immature Gran # (Auto) (0.001-0.031) x10^3u/L Absolute Lymphs (auto) (1.18-3.74) x10^3/uL Absolute Monos (auto) (0.24-0.86) x10^3/uL Absolute Nucleated RBC (0.00-0.012) x10^3u/L Lymphocytes % (19.3-51.7) % Monocytes % (4.7-12.5) % Eosinophils % (0.7-5.8) % Basophils % (0.1-1.2) % Absolute Granulocytes (1.56-6.13) x10^3/uL Basophils # (0.01-0.08) x10^3/uL D-Dimer (0.0-0.50) mg/L pO2/FiO2 Ratio % VBG pH (7.32-7.42) VBG pCO2 at Pat Temp (42-55) mm/Hg VBG pO2 at Pat Temp (25-40) mm/Hg VBG HCO3 (22-28) meq/L VBG O2 Sat (Calvin) (95-100) VBG Base Excess (-2.0-2.0) VBG Hemoglobin VBG Carboxyhemoglobin (0.0-6.9) % T HGB POC Potassium (3.5-5.1) Sodium (135-145) mmol/L Potassium (3.5-5.1) mmol/L Chloride (98-107) mmol/L Carbon Dioxide (22-30) mmol/L Anion Gap (5-15) MEQ/L BUN (7-17) mg/dL Creatinine (0.52-1.04) mg/dL Estimated GFR ML/MIN Glucose (74-106) mg/dL Lactic Acid (0.4-2.0) Calcium (8.4-10.2) mg/dL Total Bilirubin (0.2-1.3) mg/dL AST (14-36) U/L ALT (0-35) U/L Alkaline Phosphatase (38-126) U/L Troponin I < 0.012 (0.000-0.033) ng/mL Serum Total Protein (6.3-8.2) g/dL Albumin (3.5-5.0) g/dL Lipase (23-300) U/L Urine Color (Yellow) Urine Appearance (Clear) Urine pH (4.6-8.0) Ur Specific Hardy (1.005-1.030) Urine Protein (Negative) Urine Glucose (UA) (Negative) mg/dL Urine Ketones (Negative) Urine Blood (Negative) Urine Nitrite (Negative) Urine Bilirubin (Negative) Urine Urobilinogen (0.2) mg/dL Ur Leukocyte Esterase (Negative) U Hyaline Cast (Auto) (0-2) /LPF Urine Microscopic RBC (0-5) /HPF Urine Microscopic WBC (0-5) /HPF Ur Epithelial Cells (None Seen) /HPF Urine Bacteria (None Seen) /HPF Urine Culture Reflexed (NO) Urine HCG, Qual (NEGATIVE) Urine Opiates Level (NEGATIVE) Ur Methadone (NEGATIVE) Urine Barbiturates (NEGATIVE) Ur Phencyclidine (PCP) (NEGATIVE) Urine Amphetamine (NEGATIVE) U Benzodiazepine Level (NEGATIVE) Urine Cocaine (NEGATIVE) Urine Marijuana (THC) (NEGATIVE) Influenza Type A Ag (NEGATIVE) Influenza Type B Ag (NEGATIVE) RSV (PCR) (NEGATIVE) SARS-CoV-2 (PCR) (NEGATIVE) Accuchecks Date 01/04/25 Time 08:00 - Radiology Impressions Radiology Exams & Impressions: Radiology Procedures Category Date Time Status ABDOMEN AND PELVIS W/0 CONTRAS [CT] Stat Exams 01/04/25 09:09 Completed CHEST 1 VIEW (PORTABLE) Stat Exams 01/04/25 07:59 Taken CHEST WITH CONTRAST [CT] Stat Exams 01/04/25 09:10 Completed - Other Procedures and Tests Respiratory Therapy 01/04/25 08:39 Respiratory Therapy Assessment DAILY Assessment/Plan (1) Sepsis Current Visit: Yes Status: Acute Assessment & Plan: -Meets criteria with tachycardia, tachypnea, and FluA/pneumonia -Lactic acid WNL -UA pending culture -blood cultures/sputum culture -Supplemental oxygen with goal spo2 > 92% -CT chest reviewed - rules out a pulmonary embolism, but it does show small hazy areas in both lungs, some with a "tree-in-bud" pattern, which could suggest an infection in the airways. Additionally, there are small patches of ground-glass opacity in the upper lungs, which may indicate infection. A small, rounded nodule was also detected in the right breast, specifically behind the nipple, measuring 10x11 mm. A follow-up ultrasound (sonomammography) is recommended to assess it further and determine if it needs any additional testing -CT abdomen reviewed showing no urinary stones or acute abnormalities. Small calcifications in the liver and spleen suggest prior granulomatous infection. No significant changes compared to previous scans -1L fluid bolus given in ED - continue IVF at 100ml/hr -WBC reviewed at 11- trend -Ceftriaxone/doxycyxline/Tamiflu -obtain Legionella urine -RT eval -Nebs/INH -Lovenox/Protonix -tele -prednisone 20mg BID (2) Leukocytosis Current Visit: Yes Status: Acute Assessment & Plan: -see sepsis above Code(s): D72.829 - ELEVATED WHITE BLOOD CELL COUNT, UNSPECIFIED (3) Acute respiratory failure with hypoxia Current Visit: Yes Status: Acute Assessment & Plan: -see sepsis above Code(s): J96.01 - ACUTE RESPIRATORY FAILURE WITH HYPOXIA (4) Pneumonia Current Visit: Yes Status: Acute Assessment & Plan: -see sepsis Code(s): J18.9 - PNEUMONIA, UNSPECIFIED ORGANISM (5) Type 2 diabetes mellitus Current Visit: Yes Status: Acute Assessment & Plan: -ADA diet -A1c 6.84 on 12/15/24 -SSI (6) Anxiety and depression Current Visit: Yes Status: Acute Assessment & Plan: -continue home meds Code(s): F41.9 - ANXIETY DISORDER, UNSPECIFIED; F32.A - DEPRESSION, UNSPECIFIED (7) Breast mass Current Visit: Yes Status: Acute Qualifiers: Laterality: right Breast mass location: unspecified quadrant Qualified Code(s): N63.10 - Unspecified lump in the right breast, unspecified quadrant Assessment & Plan: -As seen on CT - Patient is already scheduled for OP evaluation in February Code(s): N63.0 - UNSPECIFIED LUMP IN UNSPECIFIED BREAST (8) Influenza A Current Visit: Yes Status: Acute Assessment & Plan: -see sepsis Code(s): J10.1 - FLU DUE TO OTH IDENT INFLUENZA VIRUS W OTH RESP MANIFEST (9) Nausea & vomiting Current Visit: No Status: Acute Assessment & Plan: -see sepsis -CT abd as stated above -anti-emectics Code(s): R11.2 - NAUSEA WITH VOMITING, UNSPECIFIED (10) Hypokalemia Current Visit: Yes Status: Acute Assessment & Plan: -Potassium reviewed at 3.3 - will replenish per protocol -tele -Monitor renal/lytes daily VTE: lovenox PPI: protonix Dispo: 1-2 days Code(s): E87.6 - HYPOKALEMIA (11) HTN (hypertension) Current Visit: Yes Status: Acute Assessment & Plan: -Continue home meds -add hydralazine prn for sbp> 180 or DBP > 100 Code(s): I10 - ESSENTIAL (PRIMARY) HYPERTENSION (12) Bipolar 1 disorder Current Visit: Yes Status: Acute Assessment & Plan: -continue home meds Code(s): F31.9 - BIPOLAR DISORDER, UNSPECIFIED Telemedicine Encounter - Telemedicine Encounter Telemedicine Encounter: "The entirety of this encounter was performed via Telemedicine" This visit was performed using real-time audio and video connection between my location and thepatients locationwith the assistance of a surrogateat the patients location. Written or verbal consent was obtained from the patient/guardian to perform this visit usingsynchronoustelemedicine technology. Any patient questions regarding the telemedicine interaction were answered.
[2025-01-04] MEDS ORDERED: TYLENOL 325 MG PO PRN (13:54)
[2025-01-04] MEDS ORDERED: HUMALOG SQ PRN (13:54)
[2025-01-04] MEDS ORDERED: Ventolin Hfa MDI IH PRN (14:08)
[2025-01-04] MEDS: Compazine 10 MG/2 ML IM PRN (14:23)
[2025-01-04] MEDS: Zofran 4 MG/2 ML VIAL IV PRN (14:23)
[2025-01-04] MEDS: PROTONIX 40 MG IV IV SCH (14:26)
[2025-01-04] MEDS: Klor Con PO SCH (14:27)
[2025-01-04] MEDS ORDERED: VENTOLIN COMMON CANISTER IH PRN (14:29)
[2025-01-04] MEDS: Tamiflu 75MG Capsule PO SCH (14:31)
[2025-01-04] MEDS: ROCEPHIN 1 GM / 100 ML NaCl 1 GM/100 ML IVPB IV SCH (14:31)
[2025-01-04] MEDS: Nicoderm CQ 21 MG TOP SCH (14:31)
[2025-01-04] MEDS ORDERED: MEDICATION INTERVENTION MC SCH (14:45)
[2025-01-04] MEDS ORDERED: CLONIDINE 0.1 MG TABLET ONE (14:52)
[2025-01-04] MEDS: DELTASONE 20 MG PO SCH (14:53)
[2025-01-04] MEDS: CLONIDINE 0.1 MG TABLET PO SCH (14:53)
[2025-01-04] MEDS: Neurontin PO SCH (14:54)
[2025-01-04] MEDS: Prozac 20 MG PO SCH (14:54)
[2025-01-04 17:27] LABS: Potassium 3.4 mmol/L (3.5-5.1); TROPONIN < 0.012 ng/mL (0.000-0.033)
[2025-01-04] MEDS: DUONEB 0.5-3 MG/3 ml Neb IH SCH (19:00)
--- NOTE | 2025-01-04 19:55 | XRAY ---
Indication: Wheezing. Cough. Comparison: May 08, 2015 Portable chest again hyperinflated and clear. Heart not enlarged. Bony thorax intact with minimal dextroscoliosis. No new/acute findings.
[2025-01-04] MEDS ORDERED: NON-FORMULARY ITEM (Atorvastatin Calcium [Lipitor] 20 MG Tablet) PO SCH (22:00)
[2025-01-04] MEDS: ZOCOR 20MG PO SCH (22:02)
[2025-01-04] MEDS: zyPREXA 5MG TABLET PO SCH (22:02)
[2025-01-05] MEDS: Sodium Chloride 0.9% 1000 ML 1,000 ML IV SCH (00:05)
[2025-01-05 01:09] LABS: Absolute Neutrophil Ct (ANC) 6.95 x10^3/uL (1.56-6.13); BASOPHIL % 0.1 % (0.1-1.2); Basophil (Absolute #) 0.01 x10^3/uL (0.01-0.08); Eosinophil (Absolute #) 0 x10^3/uL (0.04-0.36); Hemoglobin 13.3 g/dL (11.2-15.7); IMMATURE GRAN # 0.05 x10^3u/L (0.001-0.031); IMMATURE GRAN % 0.6 % (0.001-0.429); Lymphocytes % 8.5 % (19.3-51.7); Mean Cell Volume 91.1 fL (79.4-94.8); Mean Corpuscular Hemoglobin 31.1 pg (25.6-32.2); Mean Corpuscular Hgb Concent. 34.1 g/dL (32.2-35.5); Mean Platelet Volume 10.5 fL (9.4-12.3); Monocyte (Absolute #) 0.49 x10^3/uL (0.24-0.86); Neutrophil % 84.8 % (34.0-71.1); Platelet Count 255 x10^3/uL (182-369); Red Blood Count 4.28 x10^6/uL (3.93-5.22); White Blood Count 8.2 x10^3/uL (3.98-10.04)
[2025-01-05 01:24] LABS: ALBUMIN 3.7 g/dL (3.5-5.0); ANION GAP 15.4 MEQ/L (5-15); BILIRUBIN,TOTAL 0.4 mg/dL (0.2-1.3); Calcium 8.4 mg/dL (8.4-10.2); Creatinine 1 0.47 mg/dL (0.52-1.04); EST GLOMERULAR FILTRATION RATE 114.5 ML/MIN; MAGNESIUM 1.5 mg/dL (1.6-2.3); Potassium 4.1 mmol/L (3.5-5.1); Total Protein 6.5 g/dL (6.3-8.2)
--- NOTE | 2025-01-05 07:35 | PCM.NOTE ---
Date and Time: 01/05/25 0729 Subjective Assessment: is a 54 year old female with a past medical history of type 2 diabetes mellitus, HTN, HLD, bipolar, depression,stroke (2021), and COPD. She presented to ED on 01/04/25 with complaints of vomiting, cough, and generalized weakness since last Sunday.Previous to admission, she experienced non-bloody, non-bilious emesis and one episode of non-bloody diarrhea, along with epigastric abdominal pain. Her blood glucose levels had been running in the upper 200s for several days, and she is not on insulin therapy. She denies fever but endorsed body aches and a non-productive cough. On arrival she met criteria for sepsis due to tachycardia, tachypnea, and findings consistent with influenza A and At ypical pneumonia. Laboratory results showed white blood cell count at 11, with lactic acid within normal limits, and hypokalemia. Urine and blood cultures are pending. Imaging revealed no acute abdominal abnormalities but showed small hazy areas in both lungs, a "tree-in-bud" pattern suggestive of an airway infection, and ground-glass opacities in the upper lungs. Additionally, a 10x11 mm rounded nodule was detected in the right breast, warranting further evaluation with ultrasound which patient states she has scheduled in February. The patient was initiated on a fluid bolus in the emergency department and continued on intravenous fluids. Admit for Sepsis secondary to Flu A/Pneumonia. Plan IP treatment with ceftriaxone, Doxycycline, Tamiflu, nebulized treatments, inhalers, and supportive care. Today she states she is starting to feel better. She remains on 3lNC 93% and baseline is room air. MG+ 1.5 and replaced. anion gap 15.4 and improving. Continue with same plan of care. Pt is asking for anxiety and methadone. Explained she will need have someone bring in methadone from home. - Review of Systems Constitutional: Night Sweats, No Fever, No Chills Eyes: No Symptoms Ears, Nose, & Throat: No Symptoms Respiratory: Cough, Short Of Breath Cardiac: No Chest Pain, No Edema, No Syncope Abdominal/Gastrointestinal: Abdominal Pain, Nausea, No Vomiting, No Diarrhea Genitourinary Symptoms: No Dysuria Musculoskeletal: No Back Pain, No Neck Pain Skin: No Rash Neurological: No Dizziness, No Focal Weakness, No Sensory Changes Psychological: No Symptoms Endocrine: No Symptoms Hematologic/Lymphatic: No Symptoms Immunological/Allergic: No Symptoms Objective Exam General Appearance: no apparent distress, alert Neurologic Exam: alert, oriented x 3, cooperative, normal mood/affect, nml cerebellar function, sensation nml, No motor deficits Skin Exam: normal color, warm, dry Eye Exam: PERRL, EOMI, eyes nml inspection Ears, Nose, Throat Exam: normal ENT inspection, pharynx normal, moist mucous membranes Neck Exam: normal inspection, non-tender, supple, full range of motion Respiratory Exam: normal breath sounds, lungs clear, No respiratory distress Cardiovascular Exam: regular rate/rhythm, normal heart sounds Gastrointestinal/Abdomen Exam: soft, tenderness (generalized), No mass Extremity Exam: normal inspection, normal range of motion Back Exam: normal inspection, normal range of motion, No CVA tenderness, No vertebral tenderness Pelvic Exam: deferred Rectal Exam: deferred Objective Data Vital Signs: Vital Signs - 24 hr Temp Pulse Resp BP BP Pulse Ox 01/05/25 03:59 98.3 F 106 H 16 176/90 93 L 01/05/25 01:36 74 97 01/05/25 00:00 98.4 F 86 16 142/78 95 01/04/25 20:47 91 H 01/04/25 20:00 97.8 F 104 H 20 123/71 92 L 01/04/25 19:13 85 18 96 01/04/25 16:00 97.0 F 85 19 130/79 93 L 01/04/25 14:56 91 L 01/04/25 13:02 98.0 F 97 H 15 184/98 98 01/04/25 12:22 96 01/04/25 12:00 101 H 23 169/114 95 01/04/25 11:30 97 H 16 180/116 96 01/04/25 11:00 96 H 18 180/114 98 01/04/25 10:50 97 H 18 99 01/04/25 10:40 99 H 19 99 01/04/25 10:34 100 H 27 H 99 01/04/25 10:02 99 H 01/04/25 09:30 98 H 23 189/106 97 01/04/25 09:00 98 H 21 180/98 98 01/04/25 08:41 102 H 15 174/110 98 01/04/25 08:40 99 H 16 93 L 01/04/25 08:00 101 H 16 158/113 94 L 01/04/25 07:42 105 H 17 181/102 181/102 94 L Pain Assessment - Last Documented Pain Intensity 4 Intake and Output: Intake & Output 01/02/25 01/03/25 01/04/25 01/05/25 11:59 11:59 11:59 11:59 Intake Total 3271 Balance 3271 Weight 76.2 kg 74.5 kg Lab Results: Lab Results-Last 24 Hours 01/04/25 01/04/25 01/04/25 Range/Units 07:59 08:09 08:09 WBC (3.98-10.04) x10^3/uL RBC (3.93-5.22) x10^6/uL Hgb (11.2-15.7) g/dL Hct (34.1-44.9) % MCV (79.4-94.8) fL MCH (25.6-32.2) pg MCHC (32.2-35.5) g/dL RDW (11.7-14.4) % Plt Count (182-369) x10^3/uL MPV (9.4-12.3) fL Gran % (34.0-71.1) % Immature Gran % (Auto) (0.001-0.429) % Nucleat RBC Rel Count (0.00-0.2) % Eos # (Auto) (0.04-0.36) x10^3/uL Immature Gran # (Auto) (0.001-0.031) x10^3u/L Absolute Lymphs (auto) (1.18-3.74) x10^3/uL Absolute Monos (auto) (0.24-0.86) x10^3/uL Absolute Nucleated RBC (0.00-0.012) x10^3u/L Lymphocytes % (19.3-51.7) % Monocytes % (4.7-12.5) % Eosinophils % (0.7-5.8) % Basophils % (0.1-1.2) % Absolute Granulocytes (1.56-6.13) x10^3/uL Basophils # (0.01-0.08) x10^3/uL D-Dimer (0.0-0.50) mg/L pO2/FiO2 Ratio 21.0 % VBG pH 7.68 H* (7.32-7.42) VBG pCO2 at Pat Temp 20 L* (42-55) mm/Hg VBG pO2 at Pat Temp 167 H (25-40) mm/Hg VBG HCO3 23.6 (22-28) meq/L VBG O2 Sat (Calvin) 98.9 (95-100) VBG Base Excess 5.9 H (-2.0-2.0) VBG Hemoglobin 17.1 VBG Carboxyhemoglobin 9.3 H* (0.0-6.9) % T HGB POC Potassium 3.2 L (3.5-5.1) Sodium (135-145) mmol/L Potassium (3.5-5.1) mmol/L Chloride (98-107) mmol/L Carbon Dioxide (22-30) mmol/L Anion Gap (5-15) MEQ/L BUN (7-17) mg/dL Creatinine (0.52-1.04) mg/dL Estimated GFR ML/MIN Glucose (74-106) mg/dL Lactic Acid 1.4 (0.4-2.0) Calcium (8.4-10.2) mg/dL Magnesium (1.6-2.3) mg/dL Total Bilirubin (0.2-1.3) mg/dL AST (14-36) U/L ALT (0-35) U/L Alkaline Phosphatase (38-126) U/L Troponin I (0.000-0.033) ng/mL Serum Total Protein (6.3-8.2) g/dL Albumin (3.5-5.0) g/dL Lipase (23-300) U/L Urine Color Yellow (Yellow) Urine Appearance Clear (Clear) Urine pH 6.0 (4.6-8.0) Ur Specific [place] >=1.030 A (1.005-1.030) Urine Protein 300 A (Negative) Urine Glucose (UA) 100 A (Negative) mg/dL Urine Ketones >=160 A (Negative) Urine Blood Moderate A (Negative) Urine Nitrite Negative (Negative) Urine Bilirubin Negative (Negative) Urine Urobilinogen 1.0 A (0.2) mg/dL Ur Leukocyte Esterase Negative (Negative) U Hyaline Cast (Auto) NONE SEEN (0-2) /LPF Urine Microscopic RBC 21-50 A (0-5) /HPF Urine Microscopic WBC 0-2 (0-5) /HPF Ur Epithelial Cells Moderate A (None Seen) /HPF Urine Bacteria None Seen (None Seen) /HPF Urine Culture Reflexed YES (NO) Urine HCG, Qual NEGATIVE (NEGATIVE) Urine Opiates Level (NEGATIVE) Ur Methadone (NEGATIVE) Urine Barbiturates (NEGATIVE) Ur Phencyclidine (PCP) (NEGATIVE) Urine Amphetamine (NEGATIVE) U Benzodiazepine Level (NEGATIVE) Urine Cocaine (NEGATIVE) Urine Marijuana (THC) (NEGATIVE) Influenza Type A Ag (NEGATIVE) Influenza Type B Ag (NEGATIVE) RSV (PCR) (NEGATIVE) SARS-CoV-2 (PCR) (NEGATIVE) 01/04/25 01/04/25 01/04/25 Range/Units 08:09 08:12 08:14 WBC (3.98-10.04) x10^3/uL RBC (3.93-5.22) x10^6/uL Hgb (11.2-15.7) g/dL Hct (34.1-44.9) % MCV (79.4-94.8) fL MCH (25.6-32.2) pg MCHC (32.2-35.5) g/dL RDW (11.7-14.4) % Plt Count (182-369) x10^3/uL MPV (9.4-12.3) fL Gran % (34.0-71.1) % Immature Gran % (Auto) (0.001-0.429) % Nucleat RBC Rel Count (0.00-0.2) % Eos # (Auto) (0.04-0.36) x10^3/uL Immature Gran # (Auto) (0.001-0.031) x10^3u/L Absolute Lymphs (auto) (1.18-3.74) x10^3/uL Absolute Monos (auto) (0.24-0.86) x10^3/uL Absolute Nucleated RBC (0.00-0.012) x10^3u/L Lymphocytes % (19.3-51.7) % Monocytes % (4.7-12.5) % Eosinophils % (0.7-5.8) % Basophils % (0.1-1.2) % Absolute Granulocytes (1.56-6.13) x10^3/uL Basophils # (0.01-0.08) x10^3/uL D-Dimer 1.01 H* (0.0-0.50) mg/L pO2/FiO2 Ratio % VBG pH (7.32-7.42) VBG pCO2 at Pat Temp (42-55) mm/Hg VBG pO2 at Pat Temp (25-40) mm/Hg VBG HCO3 (22-28) meq/L VBG O2 Sat (Calvin) (95-100) VBG Base Excess (-2.0-2.0) VBG Hemoglobin VBG Carboxyhemoglobin (0.0-6.9) % T HGB POC Potassium (3.5-5.1) Sodium (135-145) mmol/L Potassium (3.5-5.1) mmol/L Chloride (98-107) mmol/L Carbon Dioxide (22-30) mmol/L Anion Gap (5-15) MEQ/L BUN (7-17) mg/dL Creatinine (0.52-1.04) mg/dL Estimated GFR ML/MIN Glucose (74-106) mg/dL Lactic Acid (0.4-2.0) Calcium (8.4-10.2) mg/dL Magnesium (1.6-2.3) mg/dL Total Bilirubin (0.2-1.3) mg/dL AST (14-36) U/L ALT (0-35) U/L Alkaline Phosphatase (38-126) U/L Troponin I (0.000-0.033) ng/mL Serum Total Protein (6.3-8.2) g/dL Albumin (3.5-5.0) g/dL Lipase (23-300) U/L Urine Color (Yellow) Urine Appearance (Clear) Urine pH (4.6-8.0) Ur Specific [place] (1.005-1.030) Urine Protein (Negative) Urine Glucose (UA) (Negative) mg/dL Urine Ketones (Negative) Urine Blood (Negative) Urine Nitrite (Negative) Urine Bilirubin (Negative) Urine Urobilinogen (0.2) mg/dL Ur Leukocyte Esterase (Negative) U Hyaline Cast (Auto) (0-2) /LPF Urine Microscopic RBC (0-5) /HPF Urine Microscopic WBC (0-5) /HPF Ur Epithelial Cells (None Seen) /HPF Urine Bacteria (None Seen) /HPF Urine Culture Reflexed (NO) Urine HCG, Qual (NEGATIVE) Urine Opiates Level NEGATIVE (NEGATIVE) Ur Methadone NEGATIVE (NEGATIVE) Urine Barbiturates NEGATIVE (NEGATIVE) Ur Phencyclidine (PCP) NEGATIVE (NEGATIVE) Urine Amphetamine NEGATIVE (NEGATIVE) U Benzodiazepine Level NEGATIVE (NEGATIVE) Urine Cocaine NEGATIVE (NEGATIVE) Urine Marijuana (THC) POSITIVE A (NEGATIVE) Influenza Type A Ag POSITIVE A (NEGATIVE) Influenza Type B Ag NEGATIVE (NEGATIVE) RSV (PCR) NEGATIVE (NEGATIVE) SARS-CoV-2 (PCR) NEGATIVE (NEGATIVE) 01/04/25 01/04/25 01/04/25 Range/Units 08:22 08:22 08:22 WBC 11.0 H (3.98-10.04) x10^3/uL RBC 5.11 (3.93-5.22) x10^6/uL Hgb 16.0 H (11.2-15.7) g/dL Hct 46.3 H (34.1-44.9) % MCV 90.6 (79.4-94.8) fL MCH 31.3 (25.6-32.2) pg MCHC 34.6 (32.2-35.5) g/dL RDW 11.8 (11.7-14.4) % Plt Count 278 (182-369) x10^3/uL MPV 10.7 (9.4-12.3) fL Gran % 86.4 H (34.0-71.1) % Immature Gran % (Auto) 0.5 H (0.001-0.429) % Nucleat RBC Rel Count 0.0 (0.00-0.2) % Eos # (Auto) 0 L (0.04-0.36) x10^3/uL Immature Gran # (Auto) 0.06 H (0.001-0.031) x10^3u/L Absolute Lymphs (auto) 0.68 L (1.18-3.74) x10^3/uL Absolute Monos (auto) 0.75 (0.24-0.86) x10^3/uL Absolute Nucleated RBC 0.00 (0.00-0.012) x10^3u/L Lymphocytes % 6.2 L (19.3-51.7) % Monocytes % 6.8 (4.7-12.5) % Eosinophils % 0.0 L (0.7-5.8) % Basophils % 0.1 (0.1-1.2) % Absolute Granulocytes 9.51 H (1.56-6.13) x10^3/uL Basophils # 0.01 (0.01-0.08) x10^3/uL D-Dimer (0.0-0.50) mg/L pO2/FiO2 Ratio % VBG pH (7.32-7.42) VBG pCO2 at Pat Temp (42-55) mm/Hg VBG pO2 at Pat Temp (25-40) mm/Hg VBG HCO3 (22-28) meq/L VBG O2 Sat (Calvin) (95-100) VBG Base Excess (-2.0-2.0) VBG Hemoglobin VBG Carboxyhemoglobin (0.0-6.9) % T HGB POC Potassium (3.5-5.1) Sodium 138 (135-145) mmol/L Potassium 3.3 L (3.5-5.1) mmol/L Chloride 93 L (98-107) mmol/L Carbon Dioxide 27 (22-30) mmol/L Anion Gap 21.1 H (5-15) MEQ/L BUN 12 (7-17) mg/dL Creatinine 0.46 L (0.52-1.04) mg/dL Estimated GFR 115.1 ML/MIN Glucose 214 H (74-106) mg/dL Lactic Acid (0.4-2.0) Calcium 9.1 (8.4-10.2) mg/dL Magnesium (1.6-2.3) mg/dL Total Bilirubin 0.90 (0.2-1.3) mg/dL AST 36 (14-36) U/L ALT 21 (0-35) U/L Alkaline Phosphatase 124 (38-126) U/L Troponin I < 0.012 (0.000-0.033) ng/mL Serum Total Protein 6.9 (6.3-8.2) g/dL Albumin 4.2 (3.5-5.0) g/dL Lipase 155 (23-300) U/L Urine Color (Yellow) Urine Appearance (Clear) Urine pH (4.6-8.0) Ur Specific [place] (1.005-1.030) Urine Protein (Negative) Urine Glucose (UA) (Negative) mg/dL Urine Ketones (Negative) Urine Blood (Negative) Urine Nitrite (Negative) Urine Bilirubin (Negative) Urine Urobilinogen (0.2) mg/dL Ur Leukocyte Esterase (Negative) U Hyaline Cast (Auto) (0-2) /LPF Urine Microscopic RBC (0-5) /HPF Urine Microscopic WBC (0-5) /HPF Ur Epithelial Cells (None Seen) /HPF Urine Bacteria (None Seen) /HPF Urine Culture Reflexed (NO) Urine HCG, Qual (NEGATIVE) Urine Opiates Level (NEGATIVE) Ur Methadone (NEGATIVE) Urine Barbiturates (NEGATIVE) Ur Phencyclidine (PCP) (NEGATIVE) Urine Amphetamine (NEGATIVE) U Benzodiazepine Level (NEGATIVE) Urine Cocaine (NEGATIVE) Urine Marijuana (THC) (NEGATIVE) Influenza Type A Ag (NEGATIVE) Influenza Type B Ag (NEGATIVE) RSV (PCR) (NEGATIVE) SARS-CoV-2 (PCR) (NEGATIVE) 01/04/25 01/04/25 01/04/25 Range/Units 12:08 12:15 16:55 WBC (3.98-10.04) x10^3/uL RBC (3.93-5.22) x10^6/uL Hgb (11.2-15.7) g/dL Hct (34.1-44.9) % MCV (79.4-94.8) fL MCH (25.6-32.2) pg MCHC (32.2-35.5) g/dL RDW (11.7-14.4) % Plt Count (182-369) x10^3/uL MPV (9.4-12.3) fL Gran % (34.0-71.1) % Immature Gran % (Auto) (0.001-0.429) % Nucleat RBC Rel Count (0.00-0.2) % Eos # (Auto) (0.04-0.36) x10^3/uL Immature Gran # (Auto) (0.001-0.031) x10^3u/L Absolute Lymphs (auto) (1.18-3.74) x10^3/uL Absolute Monos (auto) (0.24-0.86) x10^3/uL Absolute Nucleated RBC (0.00-0.012) x10^3u/L Lymphocytes % (19.3-51.7) % Monocytes % (4.7-12.5) % Eosinophils % (0.7-5.8) % Basophils % (0.1-1.2) % Absolute Granulocytes (1.56-6.13) x10^3/uL Basophils # (0.01-0.08) x10^3/uL D-Dimer (0.0-0.50) mg/L pO2/FiO2 Ratio % VBG pH (7.32-7.42) VBG pCO2 at Pat Temp (42-55) mm/Hg VBG pO2 at Pat Temp (25-40) mm/Hg VBG HCO3 (22-28) meq/L VBG O2 Sat (Calvin) (95-100) VBG Base Excess (-2.0-2.0) VBG Hemoglobin VBG Carboxyhemoglobin (0.0-6.9) % T HGB POC Potassium (3.5-5.1) Sodium (135-145) mmol/L Potassium 3.4 L (3.5-5.1) mmol/L Chloride (98-107) mmol/L Carbon Dioxide (22-30) mmol/L Anion Gap (5-15) MEQ/L BUN (7-17) mg/dL Creatinine (0.52-1.04) mg/dL Estimated GFR ML/MIN Glucose (74-106) mg/dL Lactic Acid (0.4-2.0) Calcium (8.4-10.2) mg/dL Magnesium 1.6 (1.6-2.3) mg/dL Total Bilirubin (0.2-1.3) mg/dL AST (14-36) U/L ALT (0-35) U/L Alkaline Phosphatase (38-126) U/L Troponin I < 0.012 < 0.012 (0.000-0.033) ng/mL Serum Total Protein (6.3-8.2) g/dL Albumin (3.5-5.0) g/dL Lipase (23-300) U/L Urine Color (Yellow) Urine Appearance (Clear) Urine pH (4.6-8.0) Ur Specific [place] (1.005-1.030) Urine Protein (Negative) Urine Glucose (UA) (Negative) mg/dL Urine Ketones (Negative) Urine Blood (Negative) Urine Nitrite (Negative) Urine Bilirubin (Negative) Urine Urobilinogen (0.2) mg/dL Ur Leukocyte Esterase (Negative) U Hyaline Cast (Auto) (0-2) /LPF Urine Microscopic RBC (0-5) /HPF Urine Microscopic WBC (0-5) /HPF Ur Epithelial Cells (None Seen) /HPF Urine Bacteria (None Seen) /HPF Urine Culture Reflexed (NO) Urine HCG, Qual (NEGATIVE) Urine Opiates Level (NEGATIVE) Ur Methadone (NEGATIVE) Urine Barbiturates (NEGATIVE) Ur Phencyclidine (PCP) (NEGATIVE) Urine Amphetamine (NEGATIVE) U Benzodiazepine Level (NEGATIVE) Urine Cocaine (NEGATIVE) Urine Marijuana (THC) (NEGATIVE) Influenza Type A Ag (NEGATIVE) Influenza Type B Ag (NEGATIVE) RSV (PCR) (NEGATIVE) SARS-CoV-2 (PCR) (NEGATIVE) 01/04/25 01/05/25 01/05/25 Range/Units 20:03 01:08 01:08 WBC 8.2 (3.98-10.04) x10^3/uL RBC 4.28 (3.93-5.22) x10^6/uL Hgb 13.3 (11.2-15.7) g/dL Hct 39.0 (34.1-44.9) % MCV 91.1 (79.4-94.8) fL MCH 31.1 (25.6-32.2) pg MCHC 34.1 (32.2-35.5) g/dL RDW 12.0 (11.7-14.4) % Plt Count 255 (182-369) x10^3/uL MPV 10.5 (9.4-12.3) fL Gran % 84.8 H (34.0-71.1) % Immature Gran % (Auto) 0.6 H (0.001-0.429) % Nucleat RBC Rel Count 0.0 (0.00-0.2) % Eos # (Auto) 0 L (0.04-0.36) x10^3/uL Immature Gran # (Auto) 0.05 H (0.001-0.031) x10^3u/L Absolute Lymphs (auto) 0.70 L (1.18-3.74) x10^3/uL Absolute Monos (auto) 0.49 (0.24-0.86) x10^3/uL Absolute Nucleated RBC 0.00 (0.00-0.012) x10^3u/L Lymphocytes % 8.5 L (19.3-51.7) % Monocytes % 6.0 (4.7-12.5) % Eosinophils % 0.0 L (0.7-5.8) % Basophils % 0.1 (0.1-1.2) % Absolute Granulocytes 6.95 H (1.56-6.13) x10^3/uL Basophils # 0.01 (0.01-0.08) x10^3/uL D-Dimer (0.0-0.50) mg/L pO2/FiO2 Ratio % VBG pH (7.32-7.42) VBG pCO2 at Pat Temp (42-55) mm/Hg VBG pO2 at Pat Temp (25-40) mm/Hg VBG HCO3 (22-28) meq/L VBG O2 Sat (Calvin) (95-100) VBG Base Excess (-2.0-2.0) VBG Hemoglobin VBG Carboxyhemoglobin (0.0-6.9) % T HGB POC Potassium (3.5-5.1) Sodium 141 (135-145) mmol/L Potassium 3.8 4.1 (3.5-5.1) mmol/L Chloride 102 (98-107) mmol/L Carbon Dioxide 28 (22-30) mmol/L Anion Gap 15.4 H (5-15) MEQ/L BUN 10 (7-17) mg/dL Creatinine 0.47 L (0.52-1.04) mg/dL Estimated GFR 114.5 ML/MIN Glucose 190 H (74-106) mg/dL Lactic Acid (0.4-2.0) Calcium 8.4 (8.4-10.2) mg/dL Magnesium 1.5 L (1.6-2.3) mg/dL Total Bilirubin 0.40 (0.2-1.3) mg/dL AST 32 (14-36) U/L ALT 18 (0-35) U/L Alkaline Phosphatase 94 (38-126) U/L Troponin I (0.000-0.033) ng/mL Serum Total Protein 6.5 (6.3-8.2) g/dL Albumin 3.7 (3.5-5.0) g/dL Lipase (23-300) U/L Urine Color (Yellow) Urine Appearance (Clear) Urine pH (4.6-8.0) Ur Specific [place] (1.005-1.030) Urine Protein (Negative) Urine Glucose (UA) (Negative) mg/dL Urine Ketones (Negative) Urine Blood (Negative) Urine Nitrite (Negative) Urine Bilirubin (Negative) Urine Urobilinogen (0.2) mg/dL Ur Leukocyte Esterase (Negative) U Hyaline Cast (Auto) (0-2) /LPF Urine Microscopic RBC (0-5) /HPF Urine Microscopic WBC (0-5) /HPF Ur Epithelial Cells (None Seen) /HPF Urine Bacteria (None Seen) /HPF Urine Culture Reflexed (NO) Urine HCG, Qual (NEGATIVE) Urine Opiates Level (NEGATIVE) Ur Methadone (NEGATIVE) Urine Barbiturates (NEGATIVE) Ur Phencyclidine (PCP) (NEGATIVE) Urine Amphetamine (NEGATIVE) U Benzodiazepine Level (NEGATIVE) Urine Cocaine (NEGATIVE) Urine Marijuana (THC) (NEGATIVE) Influenza Type A Ag (NEGATIVE) Influenza Type B Ag (NEGATIVE) RSV (PCR) (NEGATIVE) SARS-CoV-2 (PCR) (NEGATIVE) Radiology Exams: Radiology Procedures Category Date Time Status ABDOMEN AND PELVIS W/0 CONTRAS [CT] Stat Exams 01/04/25 09:09 Completed CHEST 1 VIEW (PORTABLE) Stat Exams 01/04/25 07:59 Completed CHEST WITH CONTRAST [CT] Stat Exams 01/04/25 09:10 Completed Assessment/Plan (1) Sepsis Current Visit: Yes Status: Acute Assessment & Plan: -Meets criteria with tachycardia, tachypnea, and FluA/pneumonia -Lactic acid WNL -UA pending culture -blood cultures/sputum culture -Supplemental oxygen with goal spo2 > 92% -CT chest reviewed - rules out a pulmonary embolism, but it does show small hazy areas in both lungs, some with a "tree-in-bud" pattern, which could suggest an infection in the airways. Additionally, there are small patches of ground-glass opacity in the upper lungs, which may indicate infection. A small, rounded nodule was also detected in the right breast, specifically behind the nipple, measuring 10x11 mm. A follow-up ultrasound (sonomammography) is recommended to assess it further and determine if it needs any additional testing -CT abdomen reviewed showing no urinary stones or acute abnormalities. Small calcifications in the liver and spleen suggest prior granulomatous infection. No significant changes compared to previous scans -1L fluid bolus given in ED - continue IVF at 100ml/hr -WBC reviewed at 11- trend -Ceftriaxone/doxycyxline/Tamiflu -obtain Legionella urine -RT eval -Nebs/INH -Lovenox/Protonix -tele -prednisone 20mg BID 01/05 - UC gram negative - WBC WNL - CBC, CMP reviewed (2) Atypical pneumonia Current Visit: Yes Status: Acute Assessment & Plan: - As seen on CT - Sputum and BC x2 pending - Pt does not have a appeals officer - Continue IV antibiotics, Steroids, duoneb - Advair added today Code(s): J18.9 - PNEUMONIA, UNSPECIFIED ORGANISM (3) Acute respiratory failure with hypoxia Current Visit: Yes Status: Acute Assessment & Plan: - See plan above - On 3lnc 93%- baseline room air Code(s): J96.01 - ACUTE RESPIRATORY FAILURE WITH HYPOXIA (4) Hypomagnesemia Current Visit: Yes Status: Acute Assessment & Plan: - Mg+ 1.5 replaced- trend - Tele Code(s): E83.42 - HYPOMAGNESEMIA (5) Influenza A Current Visit: Yes Status: Acute Assessment & Plan: - Tamiflu - Steroids, duonebs, advair - 3LNC- BL RA Code(s): J10.1 - FLU DUE TO OTH IDENT INFLUENZA VIRUS W OTH RESP MANIFEST (6) Type 2 diabetes mellitus Current Visit: Yes Status: Chronic Assessment & Plan: -ADA diet -A1c 6.84 on 12/15/24- controlled -SSI, accuchecks ac/hs (7) Nausea & vomiting Current Visit: No Status: Acute Assessment & Plan: -CT abd as stated above -anti-emectics Code(s): R11.2 - NAUSEA WITH VOMITING, UNSPECIFIED (8) HTN (hypertension) Current Visit: Yes Status: Chronic Qualifiers: Hypertension type: secondary to endocrine disorders Qualified Code(s): I15.2 - Hypertension secondary to endocrine disorders Assessment & Plan: - BP elevated this AM - advised nurse to give BP meds early - Tele - Monitor Code(s): I10 - ESSENTIAL (PRIMARY) HYPERTENSION (9) Tachycardia Current Visit: No Status: Acute Assessment & Plan: - HR 120 this AM - pt has not had her methadone in 2 days also asking for xanax- pt will need to have family bring in methadone. Will check [facility] about xanax prescribing in combination with methadone. - Tele - Likely 2:2 to combination of illness and med withdrawl Code(s): R00.0 - TACHYCARDIA, UNSPECIFIED (10) Chronic low back pain Current Visit: No Status: Chronic Qualifiers: Back pain laterality: unspecified Sciatica presence: without sciatica Qualified Code(s): M54.50 - Low back pain, unspecified; G89.29 - Other chronic pain Assessment & Plan: - Noted continue home med Code(s): M54.5 - LOW BACK PAIN * DO NOT USE *; G89.29 - OTHER CHRONIC PAIN (11) Anxiety and depression Current Visit: Yes Status: Chronic Assessment & Plan: - Continue home meds Code(s): F41.9 - ANXIETY DISORDER, UNSPECIFIED; F32.A - DEPRESSION, UNSPECIFIED (12) Smoker Current Visit: Yes Status: Chronic Assessment & Plan: - Advised smoking cessation - Nicotine patch Code(s): F17.200 - NICOTINE DEPENDENCE, UNSPECIFIED, UNCOMPLICATED (13) Chronic abdominal pain Current Visit: No Status: Chronic Assessment & Plan: - noted - CT abd/pelvis reviewed- no new concerning findings Code(s): R10.9 - UNSPECIFIED ABDOMINAL PAIN; G89.29 - OTHER CHRONIC PAIN (14) GERD (gastroesophageal reflux disease) Current Visit: No Status: Chronic Qualifiers: Esophagitis presence: esophagitis presence not specified Qualified Code(s): K21.9 - Gastro-esophageal reflux disease without esophagitis Assessment & Plan: - Continue Pepcid Code(s): K21.9 - GASTRO-ESOPHAGEAL REFLUX DISEASE WITHOUT ESOPHAGITIS (15) Hypokalemia Current Visit: Yes Status: Resolved Assessment & Plan: - resolved Code(s): E87.6 - HYPOKALEMIA (16) History of stroke Current Visit: Yes Status: Chronic Assessment & Plan: -2021- no current deficits -Continue plavix/atorvastatin - Advised smoking cessation Code(s): Z86.73 - PRSNL HX OF TIA (TIA), AND CEREB INFRC W/O RESID DEFICITS (17) Breast mass Current Visit: Yes Status: Chronic Qualifiers: Laterality: right Breast mass location: unspecified quadrant Qualified Code(s): N63.10 - Unspecified lump in the right breast, unspecified quadrant Assessment & Plan: -As seen on CT - Patient is already scheduled for OP evaluation for US in February ordered by PCP Dr. Bruce Code(s): N63.0 - UNSPECIFIED LUMP IN UNSPECIFIED BREAST (18) Leukocytosis Current Visit: Yes Status: Resolved Assessment & Plan: - Resolved Code(s): D72.829 - ELEVATED WHITE BLOOD CELL COUNT, UNSPECIFIED (19) Bipolar 1 disorder Current Visit: Yes Status: Chronic Assessment & Plan: - Continue home meds VTE: lovenox PPI: protonix Dispo: 1-2 days Next of KIN: Friend, Susan Durant, Code status: Full Code(s): F31.9 - BIPOLAR DISORDER, UNSPECIFIED
[2025-01-05] MEDS: Maxzide-25MG Tablet PO SCH (08:19)
[2025-01-05] MEDS: MAG-OX 400 PO ONE (08:20)
[2025-01-05] MEDS: Pepcid 20 MG PO SCH (08:20)
[2025-01-05] MEDS: ECOTRIN 81 MG PO SCH (08:20)
[2025-01-05] MEDS: PLAVIX Tablet PO SCH (08:20)
[2025-01-05] MEDS: ENOXAPARIN SODIUM SQ SCH (08:21)
[2025-01-05] MEDS ORDERED: xanAX 0.5 MG ONE (09:22)
[2025-01-05] MEDS: xanAX 0.5 MG PO SCH (09:25)
[2025-01-05] MEDS: Compazine 10 MG/2 ML IV PRN (09:36)
[2025-01-05] MEDS ORDERED: XANAX 1 MG PO SCH (10:00)
[2025-01-05] MEDS ORDERED: NON-FORMULARY ITEM (Buprenorphine Hcl/Naloxone Hcl [Buprenorphine-Nalox 8-2 Mg Tab] 1 EACH SL SCH (10:00)
[2025-01-05] MEDS: Advair Hfa 115/21 Common canister IH SCH (11:43)
[2025-01-05] MEDS ORDERED: FLUTICASONE-SALMETEROL 250-50 IH ONE (13:21)
[2025-01-05] MEDS ORDERED: FLUTICASONE-SALMETEROL 250-50 IH SCH (13:48)
[2025-01-05] MEDS: FLUTICASONE-SALMETEROL 250-50 IH SCH (13:51)
[2025-01-05] MEDS: PATIENT OWN MEDICATION PO SCH (15:00)
[2025-01-05] MEDS: HUMALOG SQ PRN (17:11)
[2025-01-06 04:56] LABS: Hematocrit 43.1 % (34.1-44.9); Hemoglobin 14.4 g/dL (11.2-15.7); Mean Cell Volume 91.7 fL (79.4-94.8); Mean Corpuscular Hemoglobin 30.6 pg (25.6-32.2); Mean Corpuscular Hgb Concent. 33.4 g/dL (32.2-35.5); Mean Platelet Volume 10.5 fL (9.4-12.3); Platelet Count 289 x10^3/uL (182-369); White Blood Count 7.5 x10^3/uL (3.98-10.04)
[2025-01-06 05:15] LABS: ALBUMIN 4.2 g/dL (3.5-5.0); ANION GAP 16.7 MEQ/L (5-15); BILIRUBIN,TOTAL 0.5 mg/dL (0.2-1.3); Calcium 9.1 mg/dL (8.4-10.2); Creatinine 1 0.59 mg/dL (0.52-1.04); EST GLOMERULAR FILTRATION RATE 108.4 ML/MIN; Potassium 3.7 mmol/L (3.5-5.1); Total Protein 7.2 g/dL (6.3-8.2)
[2025-01-06 07:34] VITALS: RESP 20
[2025-01-06] MEDS: MAGNESIUM SULF 2 G/50 ML BAG 2 GM/50 ML PIGGYBACK IV ONE (07:50)
--- NOTE | 2025-01-06 09:12 | PCM.DS ---
Discharge Summary Date of Admission: 01/04/25 12:50 Date of Discharge: 01/06/25 Admitting Physician: HAYLEY LAMA MD Primary Care Provider: ELOY SUGGS Allergies Allergies NKA Allergy (Mild, Verified 01/04/25 07:42) Hospital Summary - Hospital Course Hospital Course: 01/05/25 is a 54 year old female with a past medical history of type 2 diabetes mellitus, HTN, HLD, bipolar, depression,stroke (2021), and COPD. She presented to ED on 01/04/25 with complaints of vomiting, cough, and generalized weakness since last Sunday.Previous to admission, she experienced non-bloody, non-bilious emesis and one episode of non-bloody diarrhea, along with epigastric abdominal pain. Her blood glucose levels had been running in the upper 200s for several days, and she is not on insulin therapy. She denies fever but endorsed body aches and a non-productive cough. On arrival she met criteria for sepsis due to tachycardia, tachypnea, and findings consistent with influenza A and Atypical pneumonia. Laboratory results showed white blood cell count at 11, with lactic acid within normal limits, and hypokalemia. Urine and blood cultures are pending. Imaging revealed no acute abdominal abnormalities but showed small hazy areas in both lungs, a "tree-in-bud" pattern suggestive of an airway infection, and ground-glass opacities in the upper lungs. Additionally, a 10x11 mm rounded nodule was detected in the right breast, warranting further evaluation with ultrasound which patient states she has scheduled in February. The patient was initiated on a fluid bolus in the emergency department and continued on intravenous fluids. Admit for Sepsis secondary to Flu A/Pneumonia. Plan IP treatment with ceftriaxone, Doxycycline, Tamiflu, nebulized treatments, inhalers, and supportive care. Today she states she is starting to feel better. She remains on 3lNC 93% and baseline is room air. MG+ 1.5 and replaced. anion gap 15.4 and improving. Continue with same plan of care. Pt is asking for anxiety and methadone. Explained she will need have someone bring in methadone from home. 01/06/25 Pt resting in bed. She is feeling much better today. She is ready to d/c. RT to eval for home O2. Will d/c with antibiotics, steroids, and tamiflu for pneumonia, UTI, and Flu A. Lungs sounds are clear she remains on 3LNC 94%. Advised pt to stop smoking and referred pt for [id number] program, case management to set up referral. Mg+ 1.5 and replaced. She denies any further concerns at this time. - Vitals & Intake/Output Vital Signs: Vital Signs Temperature 97.3 F 01/06/25 07:33 Pulse Rate 118 H 01/06/25 07:33 Respiratory Rate 20 01/06/25 07:33 Blood Pressure 145/78 01/06/25 07:33 O2 Sat by Pulse Oximetry 96 01/06/25 07:33 Intake & Output: Intake & Output 01/03/25 01/04/25 01/05/25 01/06/25 11:59 11:59 11:59 11:59 Intake Total 3471 1560 Balance 3471 1560 Weight 76.2 kg 74.7 kg - Lab Result Diagrams: 01/06/25 04:25 01/06/25 04:25 Lab Results-Last 24 Hrs: Lab Results-Last 24 Hours 01/06/25 01/06/25 01/06/25 Range/Units 04:25 04:25 04:25 WBC 7.5 (3.98-10.04) x10^3/uL RBC 4.70 (3.93-5.22) x10^6/uL Hgb 14.4 (11.2-15.7) g/dL Hct 43.1 (34.1-44.9) % MCV 91.7 (79.4-94.8) fL MCH 30.6 (25.6-32.2) pg MCHC 33.4 (32.2-35.5) g/dL RDW 12.0 (11.7-14.4) % Plt Count 289 (182-369) x10^3/uL MPV 10.5 (9.4-12.3) fL Sodium 140 (135-145) mmol/L Potassium 3.7 (3.5-5.1) mmol/L Chloride 97 L (98-107) mmol/L Carbon Dioxide 30 (22-30) mmol/L Anion Gap 16.7 H (5-15) MEQ/L BUN 10 (7-17) mg/dL Creatinine 0.59 (0.52-1.04) mg/dL Estimated GFR 108.4 ML/MIN Glucose 249 H (74-106) mg/dL Calcium 9.1 (8.4-10.2) mg/dL Magnesium 1.5 L (1.6-2.3) mg/dL Total Bilirubin 0.50 (0.2-1.3) mg/dL AST 34 (14-36) U/L ALT 28 (0-35) U/L Alkaline Phosphatase 104 (38-126) U/L Serum Total Protein 7.2 (6.3-8.2) g/dL Albumin 4.2 (3.5-5.0) g/dL Micro Results-Entire Visit: Microbiology 01/04/25 08:09 Urine Culture - Final Clean Catch Midstream Escherichia Coli Proteus Mirabilis 01/04/25 16:55 Blood Culture - Preliminary Blood 01/04/25 08:38 Blood Culture - Preliminary Blood Accuchecks Date 01/06/25 Date 01/06/25 Date 01/05/25 Date 01/05/25 Date 01/05/25 Time 08:21 Time 22:13 Time 17:08 Time 11:50 - Radiology Exams Ordered Rad Exams-Entire Visit: Radiology Procedures Category Date Time Status ABDOMEN AND PELVIS W/0 CONTRAS [CT] Stat Exams 01/04/25 09:09 Completed CHEST WITH CONTRAST [CT] Stat Exams 01/04/25 09:10 Completed - Procedures and Test Procedures and Tests throughout Hospitalization: Therapy Orders & Screens 01/04/25 08:39 Respiratory Therapy Assessment DAILY Comment: 01/04/25 13:16 Smoking Cessation Education ONCE Comment: Diagnosis: influenza A/uti/pneumonia Smoking Status: Current every day smoker How long have you smoked: 33 years Have you smoked in the past 12 months: Yes Approximately how many cigarettes per day: 3/4-1 ppd Do you dip or chew tobacco: No 01/04/25 13:54 Respiratory Therapy Consult ONCE Comment: Reason For Exam: Diagnosis: influenza A/uti/pneumonia 01/04/25 14:56 Oxygen Nasal Cannula 3 lpm Comment: Diagnosis: influenza A/uti/pneumonia 01/05/25 07:00 Respiratory MDI Q12H Comment: Diagnosis: influenza A/uti/pneumonia 01/06/25 08:59 RT Miscellaneous Order ROUTINE Comment: Physician Instructions: Reason For Exam: RT eval for home O2 Diagnosis: influenza A/uti/pneumonia Discharge Exam General Appearance: no apparent distress, alert Neurologic Exam: alert, oriented x 3, cooperative, normal mood/affect, nml cerebellar function, sensation nml, No motor deficits Eye Exam: PERRL, EOMI, eyes nml inspection Ears, Nose, Throat Exam: normal ENT inspection, pharynx normal, moist mucous membranes Neck Exam: normal inspection, non-tender, supple, full range of motion Respiratory Exam: normal breath sounds, lungs clear, No respiratory distress Cardiovascular Exam: regular rate/rhythm, normal heart sounds Gastrointestinal/Abdomen Exam: soft, No tenderness, No mass Pelvic Exam: deferred Rectal Exam: deferred Back Exam: normal inspection, normal range of motion, No CVA tenderness, No vertebral tenderness Extremity Exam: normal inspection, normal range of motion Skin Exam: normal color, warm, dry Final Diagnosis/Problem List - Final Discharge Diagnosis/Problem (1) Sepsis Current Visit: Yes Status: Acute (2) Atypical pneumonia Current Visit: Yes Status: Acute Code(s): J18.9 - PNEUMONIA, UNSPECIFIED ORGANISM (3) Acute respiratory failure with hypoxia Current Visit: Yes Status: Acute Code(s): J96.01 - ACUTE RESPIRATORY FAILURE WITH HYPOXIA (4) Hypomagnesemia Current Visit: Yes Status: Acute Code(s): E83.42 - HYPOMAGNESEMIA (5) Influenza A Current Visit: Yes Status: Acute Code(s): J10.1 - FLU DUE TO OTH IDENT INFLUENZA VIRUS W OTH RESP MANIFEST (6) Type 2 diabetes mellitus Current Visit: Yes Status: Chronic (7) Nausea & vomiting Current Visit: No Status: Acute Code(s): R11.2 - NAUSEA WITH VOMITING, UNSPECIFIED (8) HTN (hypertension) Current Visit: Yes Status: Chronic Code(s): I10 - ESSENTIAL (PRIMARY) HYPERTENSION (9) Tachycardia Current Visit: No Status: Acute Code(s): R00.0 - TACHYCARDIA, UNSPECIFIED (10) Chronic low back pain Current Visit: No Status: Chronic Code(s): M54.5 - LOW BACK PAIN * DO NOT USE *; G89.29 - OTHER CHRONIC PAIN (11) Anxiety and depression Current Visit: Yes Status: Chronic Code(s): F41.9 - ANXIETY DISORDER, UNSPECIFIED; F32.A - DEPRESSION, UNSPECIFIED (12) Smoker Current Visit: Yes Status: Chronic Code(s): F17.200 - NICOTINE DEPENDENCE, UNSPECIFIED, UNCOMPLICATED (13) Chronic abdominal pain Current Visit: No Status: Chronic Code(s): R10.9 - UNSPECIFIED ABDOMINAL PAIN; G89.29 - OTHER CHRONIC PAIN (14) GERD (gastroesophageal reflux disease) Current Visit: No Status: Chronic Code(s): K21.9 - GASTRO-ESOPHAGEAL REFLUX DISEASE WITHOUT ESOPHAGITIS (15) Hypokalemia Current Visit: Yes Status: Resolved Code(s): E87.6 - HYPOKALEMIA (16) History of stroke Current Visit: Yes Status: Chronic Code(s): Z86.73 - PRSNL HX OF TIA (TIA), AND CEREB INFRC W/O RESID DEFICITS (17) Breast mass Current Visit: Yes Status: Chronic Code(s): N63.0 - UNSPECIFIED LUMP IN UNSPECIFIED BREAST (18) Leukocytosis Current Visit: Yes Status: Resolved Code(s): D72.829 - ELEVATED WHITE BLOOD CELL COUNT, UNSPECIFIED (19) Bipolar 1 disorder Current Visit: Yes Status: Chronic Assessment & Plan: (1) Sepsis Current Visit: Yes Status: Acute Assessment & Plan: -Meets criteria with tachycardia, tachypnea, and FluA/pneumonia -Lactic acid WNL -UA pending culture -blood cultures/sputum culture -Supplemental oxygen with goal spo2 > 92% -CT chest reviewed - rules out a pulmonary embolism, but it does show small hazy areas in both lungs, some with a "tree-in-bud" pattern, which could suggest an infection in the airways. Additionally, there are small patches of ground-glass opacity in the upper lungs, which may indicate infection. A small, rounded nodule was also detected in the right breast, specifically behind the nipple, measuring 10x11 mm. A follow-up ultrasound (sonomammography) is recommended to assess it further and determine if it needs any additional testing -CT abdomen reviewed showing no urinary stones or acute abnormalities. Small calcifications in the liver and spleen suggest prior granulomatous infection. 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 - Continue IV antibiotics, Steroids, duoneb - Advair added Code(s): J18.9 - PNEUMONIA, UNSPECIFIED ORGANISM (3) Acute respiratory failure with hypoxia Current Visit: Yes Status: Acute Assessment & Plan: - See plan above - On 3lnc 93%- baseline room air Code(s): J96.01 - ACUTE RESPIRATORY FAILURE WITH HYPOXIA (4) Hypomagnesemia Current Visit: Yes Status: Acute Assessment & Plan: - Mg+ 1.5 replaced- trend - Tele 01/06 - Mg+1.5- replaced Code(s): E83.42 - HYPOMAGNESEMIA (5) Influenza A Current Visit: Yes Status: Acute Assessment & Plan: - Tamiflu - Steroids, duonebs, advair - 3LNC- BL RA 01/06 - RT to eval for home O2 needs, case management to set up. Code(s): J10.1 - FLU DUE TO OTH IDENT INFLUENZA VIRUS W OTH RESP MANIFEST (6) Type 2 diabetes mellitus Current Visit: Yes Status: Chronic Assessment & Plan: -ADA diet -A1c 6.84 on 12/15/24- controlled -SSI, accuchecks ac/hs (7) Nausea & vomiting Current Visit: No Status: Acute Assessment & Plan: -CT abd as stated above -anti-emetics Code(s): R11.2 - NAUSEA WITH VOMITING, UNSPECIFIED (8) HTN (hypertension) Current Visit: Yes Status: Chronic Qualifiers: Hypertension type: secondary to endocrine disorders Qualified Code(s): I15.2 - Hypertension secondary to endocrine disorders Assessment & Plan: - BP elevated this AM - advised nurse to give BP meds early - Tele - Monitor Code(s): I10 - ESSENTIAL (PRIMARY) HYPERTENSION (9) Tachycardia Current Visit: No Status: Acute Assessment & Plan: - HR 120 this AM - pt has not had her methadone in 2 days also asking for xanax- pt will need to have family bring in methadone. Will check [facility] about xanax prescribing in combination with methadone. - Tele - Likely 2:2 to combination of illness and med withdrawl 01/06 - improved Code(s): R00.0 - TACHYCARDIA, UNSPECIFIED (10) Chronic low back pain Current Visit: No Status: Chronic Qualifiers: Back pain laterality: unspecified Sciatica presence: without sciatica Qualified Code(s): M54.50 - Low back pain, unspecified; G89.29 - Other chronic p ain Assessment & Plan: - Noted continue home med Code(s): M54.5 - LOW BACK PAIN * DO NOT USE *; G89.29 - OTHER CHRONIC PAIN (11) Anxiety and depression Current Visit: Yes Status: Chronic Assessment & Plan: - Continue home meds Code(s): F41.9 - ANXIETY DISORDER, UNSPECIFIED; F32.A - DEPRESSION, UNSPECIFIED (12) Smoker Current Visit: Yes Status: Chronic Assessment & Plan: - Advised smoking cessation - Nicotine patch Code(s): F17.200 - NICOTINE DEPENDENCE, UNSPECIFIED, UNCOMPLICATED (13) Chronic abdominal pain Current Visit: No Status: Chronic Assessment & Plan: - noted - CT abd/pelvis reviewed- no new concerning findings Code(s): R10.9 - UNSPECIFIED ABDOMINAL PAIN; G89.29 - OTHER CHRONIC PAIN (14) GERD (gastroesophageal reflux disease) Current Visit: No Status: Chronic Qualifiers: Esophagitis presence: esophagitis presence not specified Qualified Code(s): K21.9 - Gastro-esophageal reflux disease without esophagitis Assessment & Plan: - Continue Pepcid Code(s): K21.9 - GASTRO-ESOPHAGEAL REFLUX DISEASE WITHOUT ESOPHAGITIS (15) Hypokalemia Current Visit: Yes Status: Resolved Assessment & Plan: - resolved Code(s): E87.6 - HYPOKALEMIA (16) History of stroke Current Visit: Yes Status: Chronic Assessment & Plan: -2021- no current deficits -Continue plavix/atorvastatin - Advised smoking cessation Code(s): Z86.73 - PRSNL HX OF TIA (TIA), AND CEREB INFRC W/O RESID DEFICITS (17) Breast mass Current Visit: Yes Status: Chronic Qualifiers: Laterality: right Breast mass location: unspecified quadrant Qualified Code(s): N63.10 - Unspecified lump in the right breast, unspecified quadrant Assessment & Plan: -As seen on CT - Patient is already scheduled for OP evaluation for US in February ordered by PCP Dr. Suggs Code(s): N63.0 - UNSPECIFIED LUMP IN UNSPECIFIED BREAST (18) Leukocytosis Current Visit: Yes Status: Resolved Assessment & Plan: - Resolved Code(s): D72.829 - ELEVATED WHITE BLOOD CELL COUNT, UNSPECIFIED (19) Bipolar 1 disorder Current Visit: Yes Status: Chronic Assessment & Plan: - Continue home meds Code(s): F31.9 - BIPOLAR DISORDER, UNSPECIFIED Code(s): F31.9 - BIPOLAR DISORDER, UNSPECIFIED (20) UTI (urinary tract infection) Current Visit: Yes Status: Acute Assessment & Plan: 01/06 - UC + for E-coli and proteus mirabilus- acosta sensitive - Continue antibiotics Code(s): N39.0 - URINARY TRACT INFECTION, SITE NOT SPECIFIED - Discharge Discharge Date: 01/06/25 Disposition: Home, Self-Care Condition: Stable Prescriptions: New Prednisone 20 mg [Deltasone 20 mg] 20 mg PO BID 5 Days #10 tablet Oseltamivir 75 mg [Tamiflu 75MG Capsule] 75 mg PO BID 4 Days #8 cap Continue OLANZapine [Olanzapine] 20 mg PO HS Gabapentin 800 mg PO TID Metformin HCl 500 mg [Glucophage 500 MG] 1,000 mg PO BIDWM Triamterene/Hydrochlorothiazid [Triamterene-Hctz 75-50 mg Tab] 1 tab PO DAILY Glyburide 5 mg [Micronase 5 MG] 2.5 mg PO DAILY Clonidine HCl 0.1 mg [Clonidine 0.1 mg Tablet] 0.2 mg PO DAILY Buprenorphine HCl/Naloxone HCl [Buprenorphine-Nalox 8-2 mg Tab] 1.5 tablet SL DAILY Semaglutide [Ozempic] 1 mg SQ WEEKLY Albuterol 8 gm Mdi Hfa [Ventolin Hfa MDI] 2 puff IH Q4H PRN PRN Reason: SOB/WHEEZING Famotidine 20 mg [Pepcid 20 MG] 40 mg PO DAILY Clopidogrel Bisulfate [PLAVIX Tablet] 75 mg PO DAILY Aspirin EC 81 mg [Ecotrin 81 mg] 81 mg PO DAILY Atorvastatin Calcium [Lipitor] 20 mg PO HS ALPRAZolam 1 MG [Xanax 1 mg] 0.5 tablet PO TID Fluoxetine HCl 20 mg PO TID Instructions: Pneumonia in adults, Sepsis in adults Follow up with: ELOY SUGGS [Primary Care Provider] - 01/15/25 1:30 pm BRIDGET CALERO [ACTIVE STAFF] - 01/21/25 1:00 pm
[2025-01-06] MEDS ORDERED: NON-FORMULARY ITEM SL SCH (10:00)
[2025-01-06 12:46] VITALS: BP 130/82; PULSE 108; TEMP 96.9; O2SAT 95
== END 2025-01-06 13:35 | disposition home or self-care (01) ==
LOC: ED 07:32 → MED SURG 12:50
PROVIDERS: ADMIT Internal Medicine; ATTEND Internal Medicine
DX: A41.9 Sepsis, unspecified organism (principal); J18.9 Pneumonia, unspecified organism; J96.01 Acute respiratory failure with hypoxia; E83.42 Hypomagnesemia; J10.1 Influenza due to other identified influenza virus with other respiratory manifestations; E11.9 Type 2 diabetes mellitus without complications; R11.2 Nausea with vomiting, unspecified; I10 Essential (primary) hypertension; R00.0 Tachycardia, unspecified; F41.9 Anxiety disorder, unspecified; F32.A Depression, unspecified; F17.200 Nicotine dependence, unspecified, uncomplicated; R10.9 Unspecified abdominal pain; G89.29 Other chronic pain; K21.9 Gastro-esophageal reflux disease without esophagitis; E87.6 Hypokalemia; Z86.73 Personal history of transient ischemic attack (TIA), and cerebral infarction without residual deficits; N63.10 Unspecified lump in the right breast, unspecified quadrant; D72.829 Elevated white blood cell count, unspecified; N39.0 Urinary tract infection, site not specified; B96.20 Unspecified Escherichia coli [E. coli] as the cause of diseases classified elsewhere; Z79.01 Long term (current) use of anticoagulants; Z79.899 Other long term (current) drug therapy
CPT/HCPCS: 0241U; 36415; 71045; 71260; 74176; 80053; 80307; 81001; 81025; 82805; 83605; 83690; 83735; 84132; 84484; 85025; 85027; 85379; 87040; 87077; 87086; 87186; 87899; 93005; 93041; 93268; 94640; 94760; 96374; 96375; 99285; J0696; J1200; J1650; J1817; J2405; Q3014; A9270-GY; G0378; J3475

== ENCOUNTER → 2025-02-11 | Emergency (ER) | payer BC, OTHER ==
[2012-06-23 12:35] VITALS: BP 132/75
== END | disposition left against medical advice (07) ==
LOC: ED 16:17
DX: Z53.21 Procedure and treatment not carried out due to patient leaving prior to being seen by health care provider (principal)